=== PATIENT | female | born 1935 | race Caucasian/White ===

== ENCOUNTER 2022-04-09 09:39 | Inpatient (IN) | payer MEDICARE, SELFPAY ==
[2022-04-09] VITALS (11 sets, daily range): BP systolic 114–207; BP diastolic 51–96; PULSE 75–115; RESP 14–20; TEMP 34–37.9; O2SAT 85–100; BMI 27.4
--- NOTE | 2022-04-09 | ECG_ITS ---
Test Reason : elevated trop Blood Pressure : / mmHG Vent. Rate : 090 BPM Atrial Rate : 090 BPM P-R Int : 178 ms QRS Dur : 076 ms QT Int : 376 ms P-R-T Axes : 078 022 015 degrees QTc Int : 459 ms Sinus rhythm with marked sinus arrhythmia with occasional Premature ventricular complexes Nonspecific ST abnormality Abnormal ECG When compared with ECG of 09-APR-2022 11:30, Premature ventricular complexes are now Present ST no longer elevated in Inferior leads Referred By: John Hussein Electronically Signed By:KOBE THURMAN MD
--- NOTE | ~2022-04-09 | XR_ITS ---
EXAMINATION: LEFT KNEE, LEFT ANKLE, BILATERAL KNEE, BILATERAL ANKLES BILATERAL FOOT. CLINICAL INFORMATION: Fall. Pain. COMPARISON: None TECHNIQUE: 2 views each knee. 2 views each ankle, 3 views each foot FINDINGS: Left knee: The tricompartment joint space is mildly reduced. There is chondrocalcinosis of the menisci no visible acute fracture, dislocation or loose body seen. There is diffuse osteopenia. No abnormal joint effusion. Left ankle: There is diffuse osteopenia. The ankle mortise and subtalar joints are normal. There is moderate medial malleolar osteophytosis. The soft tissues are normal. Left foot: There is diffuse osteopenia with no visible acute fracture, dislocation or subluxation seen. No bony erosive changes. The ankle mortise and subtalar joints are normal. The soft tissues are normal. Right knee: The tricompartment joint space is reduced. No acute fracture, dislocation or loose body seen. There is chondrocalcinosis of medial and lateral meniscus. No abnormal joint effusion seen. There is moderate size superior patellar enthesophyte. Right ankle: There is mild osteopenia no visible acute fracture, dislocation or subluxation seen. The ankle mortise and subtalar joints are normal. A small calcaneal heel enthesophyte. Soft tissues are normal. Right foot: There is no visible acute fracture, dislocation or subluxation seen. The soft tissues are normal. There is a small calcaneal heel spur. XR/XR ankle RT min 3V IMPRESSION: Diffuse osteopenia in both lower extremities. There is no visible fracture involving either knee, ankle of the foot. 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 There is mild superior patellar spurring right knee. Mild degenerative changes both knee joints. Diffuse osteopenia bilateral foot and ankle. No visible acute fracture or dislocation or soft tissue swelling in either foot or ankle. Calcaneal heel enthesophyte bilateral foot.
--- NOTE | ~2022-04-09 | XR_ITS ---
EXAMINATION: XR CHEST CLINICAL INFORMATION: Wheezing and rhonchi COMPARISON: Chest CT March 2022 TECHNIQUE: Frontal view of the chest was obtained. FINDINGS: The cardiac and mediastinal contours are stable. The lungs are clear. There is no pleural effusion or pneumothorax. There are degenerative changes of the spine and shoulders. XR/XR chest 1V IMPRESSION: No evidence for acute disease in the chest.
--- NOTE | ~2022-04-09 | XR_ITS ---
EXAMINATION: LEFT KNEE, LEFT ANKLE, BILATERAL KNEE, BILATERAL ANKLES BILATERAL FOOT. CLINICAL INFORMATION: Fall. Pain. COMPARISON: None TECHNIQUE: 2 views each knee. 2 views each ankle, 3 views each foot FINDINGS: Left knee: The tricompartment joint space is mildly reduced. There is chondrocalcinosis of the menisci no visible acute fracture, dislocation or loose body seen. There is diffuse osteopenia. No abnormal joint effusion. Left ankle: There is diffuse osteopenia. The ankle mortise and subtalar joints are normal. There is moderate medial malleolar osteophytosis. The soft tissues are normal. Left foot: There is diffuse osteopenia with no visible acute fracture, dislocation or subluxation seen. No bony erosive changes. The ankle mortise and subtalar joints are normal. The soft tissues are normal. Right knee: The tricompartment joint space is reduced. No acute fracture, dislocation or loose body seen. There is chondrocalcinosis of medial and lateral meniscus. No abnormal joint effusion seen. There is moderate size superior patellar enthesophyte. Right ankle: There is mild osteopenia no visible acute fracture, dislocation or subluxation seen. The ankle mortise and subtalar joints are normal. A small calcaneal heel enthesophyte. Soft tissues are normal. Right foot: There is no visible acute fracture, dislocation or subluxation seen. The soft tissues are normal. There is a small calcaneal heel spur. XR/XR knee LT 2V IMPRESSION: Diffuse osteopenia in both lower extremities. There is no visible fracture involving either knee, ankle of the foot. 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 There is mild superior patellar spurring right knee. Mild degenerative changes both knee joints. Diffuse osteopenia bilateral foot and ankle. No visible acute fracture or dislocation or soft tissue swelling in either foot or ankle. Calcaneal heel enthesophyte bilateral foot.
--- NOTE | ~2022-04-09 | CT_ITS ---
EXAMINATION: CT ABDOMEN AND PELVIS WITHOUT CONTRAST CLINICAL INFORMATION: Trauma. Abdominal pain. COMPARISON: None TECHNIQUE: Multidetector volumetric imaging was performed from the superior aspect of the liver through the pubic symphysis. Sagittal and coronal reformatted images were obtained on the technologist's workstation. This CT examination was performed using dose optimization techniques as appropriate, variously including the following: *Automated exposure control *Adjustment of mA and/or kV according to patient size (this includes techniques or standardized protocols for targeted exams where dose is matched to indication/reason for exam; i.e. extremities or head) *Use of iterative reconstruction technique DLP: 689 mGy-cm FINDINGS: LUNG BASES: The visualized lung bases are unremarkable. LIVER, GALLBLADDER, AND BILIARY TREE: The liver is normal in size, shape, and attenuation. No focal hepatic lesion or biliary ductal dilatation is present. The gallbladder is unremarkable with no evidence of radiopaque gallstones, gallbladder wall thickening, or obvious pericholecystic inflammatory changes. PANCREAS: Unremarkable. SPLEEN: Unremarkable. ADRENAL GLANDS: Unremarkable. KIDNEYS AND URETERS: The kidneys are normal in size, shape, and attenuation. No hydronephrosis, hydroureter, or calculi seen. No perinephric stranding. BLADDER: Unremarkable. GASTROINTESTINAL TRACT: Diverticulosis of the colon and constipation. The small and large bowel are otherwise unremarkable. The appendix is unremarkable. No ascites or free air. ABDOMINAL WALL: No significant hernia is appreciated. LYMPH NODES: Normal. VASCULAR: Unremarkable. PELVIC VISCERA: Unremarkable. OSSEOUS STRUCTURES: Mild L5 vertebral body compression fracture, question recent. Postsurgical changes to the lower lumbar spine post laminectomy. Mild Degenerative changes spine. Degenerative changes at the hip joints. CT/CT abdomen pelvis wo IV con IMPRESSION: Moderate L5 vertebral body compression fracture, question recent. Clinical correlation recommended. Postsurgical changes to the lower lumbar spine. No acute abdominal or pelvic findings. Constipation and diverticulosis. Fleischner guidelines were followed.
--- NOTE | ~2022-04-09 | CT_ITS ---
EXAMINATION: CT BRAIN AND CT CERVICAL SPINE WITHOUT CONTRAST. CLINICAL INFORMATION: Trauma. Pain. COMPARISON: None TECHNIQUE: 5 mm thin axial and reformatted 2 mm thin sagittal and coronal images of brain were obtained. Subsequently axial 3 mm thin and reformatted 2 mm thin sagittal coronal images of cervical spine were obtained. DLP 1044 mGy FINDINGS: Brain: There is no acute intra-axial, extra-axial bleed, masses or midline shift. No acute infarction evolution, edema or mass effect. There is diffuse periventricular hypodensity in both several hemispheres. The lateral ventricles are moderately enlarged but symmetrical. The parrish to white matter differentiation maintained. Bone windows reveal no calvarial abnormality. There is no scalp soft tissue abnormality. Bilateral paranasal sinuses are well-aerated. Cervical spine: There is mild straightening of cervical lordosis. There is loss of C3-C4, C4-C5, C5-C6 and C6-C7 disc heights with moderate ventral and posterior spondylosis. The craniovertebral junction and C1-C2 alignment is normal. There is mild bilateral C3-C4, C4-C5, C5-C6 facet joint arthropathy and hypertrophy. There is no visible acute fracture, dislocation or lytic process seen. The paravertebral soft tissues are the airway is widely patent. The lung apices are clear. CT/CT cervical spine wo IV con IMPRESSION: No acute intracranial process seen. There is no visible acute fracture, dislocation or subluxation in cervical spine. Degenerative disc changes, spondylosis and facet joint arthropathy as described above. No lytic or sclerotic process seen.
--- NOTE | ~2022-04-09 | CT_ITS ---
EXAMINATION: CT CHEST WITHOUT CONTRAST CLINICAL INFORMATION: Trauma COMPARISON: None TECHNIQUE: Multidetector volumetric CT imaging of the chest was done. Axial MIP volume rendering provided. Sagittal and coronal reformatted images were obtained. This CT examination was performed using dose optimization techniques as appropriate, variously including the following: *Automated exposure control *Adjustment of mA and/or kV according to patient size (this includes techniques or standardized protocols for targeted exams where dose is matched to indication/reason for exam; i.e. extremities or head) *Use of iterative reconstruction technique DLP: 340 mGy-cm FINDINGS: MAINTENANCE MECHANIC 2ND SHIFT: Unremarkable LUNGS: The lungs are clear with no evidence of inflammation or nodules. MEDIASTINUM: The mediastinum is normal. CORONARY ARTERY CALCIFICATION: Mild PLEURA: There is no pleural effusion. No pleural mass or thickening. AXILLA: No lymphadenopathy. UPPER ABDOMEN: Unremarkable. OSSEOUS STRUCTURES: Degenerative changes of the spine and shoulders. CT/CT chest wo IV con IMPRESSION: No evidence for acute disease in the chest. Fleischner guidelines were followed.
--- NOTE | ~2022-04-09 | CT_ITS ---
EXAMINATION: CT BRAIN AND CT CERVICAL SPINE WITHOUT CONTRAST. CLINICAL INFORMATION: Trauma. Pain. COMPARISON: None TECHNIQUE: 5 mm thin axial and reformatted 2 mm thin sagittal and coronal images of brain were obtained. Subsequently axial 3 mm thin and reformatted 2 mm thin sagittal coronal images of cervical spine were obtained. DLP 1044 mGy FINDINGS: Brain: There is no acute intra-axial, extra-axial bleed, masses or midline shift. No acute infarction evolution, edema or mass effect. There is diffuse periventricular hypodensity in both several hemispheres. The lateral ventricles are moderately enlarged but symmetrical. The parrish to white matter differentiation maintained. Bone windows reveal no calvarial abnormality. There is no scalp soft tissue abnormality. Bilateral paranasal sinuses are well-aerated. Cervical spine: There is mild straightening of cervical lordosis. There is loss of C3-C4, C4-C5, C5-C6 and C6-C7 disc heights with moderate ventral and posterior spondylosis. The craniovertebral junction and C1-C2 alignment is normal. There is mild bilateral C3-C4, C4-C5, C5-C6 facet joint arthropathy and hypertrophy. There is no visible acute fracture, dislocation or lytic process seen. The paravertebral soft tissues are the airway is widely patent. The lung apices are clear. CT/CT head/brain wo IV con IMPRESSION: No acute intracranial process seen. There is no visible acute fracture, dislocation or subluxation in cervical spine. Degenerative disc changes, spondylosis and facet joint arthropathy as described above. No lytic or sclerotic process seen.
--- NOTE | 2022-04-09 10:52 | ECG_ITS ---
Test Reason : HYPOTHERMIA Blood Pressure : / mmHG Vent. Rate : 108 BPM Atrial Rate : 108 BPM P-R Int : 180 ms QRS Dur : 070 ms QT Int : 356 ms P-R-T Axes : 084 029 045 degrees QTc Int : 477 ms Poor data quality Sinus tachycardia with occasional Premature ventricular complexes Nonspecific ST and T wave abnormality Abnormal ECG No previous ECGs available Referred By: Ginny Lance Electronically Signed By:KOBE THURMAN MD
--- NOTE | 2022-04-09 10:56 | PC.NURSE ---
pt alert and oriented, skin very cold to the touch, pt's lower extremities with new abrasions all over her knees, shines and feet, rectal temp at 93.8F, tachy at 111, bp holding at 114/80 and sating at 100% on room air. c-gerson per ems pt states that she was taking her dog outside at 0300 and the dog got wrapped up in a chain and the pt was attempting to get the dog untangled all morning, pt reports almost falling but eased her self to the ground did not fall according to the pt but did spend about 4 hours outside attempting to crawl back in the house pt reports having pain in her legs / pt is currently on a bear hugger
[2022-04-09 11:21] LABS: Glucose, Whole Blood 405 mg/dL (60-115)
--- NOTE | 2022-04-09 11:26 | ECG_ITS ---
Test Reason : HYPOTHERMIA Blood Pressure : / mmHG Vent. Rate : 110 BPM Atrial Rate : 110 BPM P-R Int : 180 ms QRS Dur : 074 ms QT Int : 356 ms P-R-T Axes : 038 038 038 degrees QTc Int : 481 ms Poor data quality Sinus tachycardia Nonspecific ST and T wave abnormality Abnormal ECG When compared with ECG of 09-APR-2022 11:06, Premature ventricular complexes are no longer Present Referred By: Ginny Lance Electronically Signed By:KOBE THURMAN MD
--- NOTE | 2022-04-09 11:29 | ED_ITS ---
HPI - Fall General Chief Complaint: Fall Stated Complaint: FALL,LOW TEMP Time Seen by Provider: 04/09/22 10:48 History of Present Illness HPI Narrative: Patient is an 86-year-old female was trying to let the dog out at 03:00 o'clock in the morning. Patient and down somehow felt weak on her feet. Next thing she knew she was on the ground. Unable to get up patient was out in the cold. Drag herself to a phone and called EMS the ventrally. Patient was then sent in for further evaluation. She is not on any blood thinners. Complain of generalized malaise. Patient was noted by EMS to be incontinent of stool. Denies any chest pain. Denies any abdominal pain. Denies any bloody stool. Denies any changes in medication. Related Data Home Medications Medication Instructions Recorded Confirmed cholecalciferol (vitamin D3) 10 10 mcg PO DAILY 04/09/22 04/09/22 mcg (400 unit) capsule dulaglutide 0.75 mg/0.5 mL 0.75 mg subcut TU@1000 04/09/22 04/09/22 subcutaneous pen injector (Trulicity) lisinopril 40 mg tablet 40 mg PO DAILY 04/09/22 04/09/22 metoprolol succinate 50 mg 50 mg PO DAILY 04/09/22 04/09/22 tablet,extended release 24 hr Allergies Allergy/AdvReac Type Severity Reaction Status Date / Time atorvastatin [From Lipitor] AdvReac Joint Pain Verified 04/09/22 10:02 Review of Systems Review of Systems: Positive generalized malaise weakness Positive feeling cold Yes Unobtainable due to mental condition PMFSH Past Medical History Attestation statement: The following information was validated with the patient. Social History Social History Smoked in Last 30 Days: No Use of substances other than those prescribed or required for medical reasons: No Advance Directives: No Physical Exam Vital Signs: Vital Signs: Last Vital Signs Temp 95.5 F L 04/09/22 15:53 Pulse 113 H 04/09/22 15:53 Resp 16 04/09/22 15:53 BP 165/96 H 04/09/22 15:53 Pulse Ox 98 04/09/22 15:53 O2 Del Method 04/09/22 15:53 O2 Flow Rate 2 04/09/22 15:53 BMI result Body Mass Index 27.4 Sick appearing, weak, collared Appearance: Alert. Oriented X3. Dry mucous membrane Eyes: Pupils equal, round and reactive to light. ENT: Pharynx normal. Neck: Trachea is midline C-spine is immobilized secondary to distracting injury CVS: Tachycardic but regular Respiratory: No gross chest wall tenderness elicited on palpation. No crepitus. No clavicular tenderness. Positive breath sounds bilaterally Abdomen: Soft nontender Skin: Cold, multiple abrasions noted contusion noted over bilateral knee, ankle, foot. Distal pulses grossly intact. Toes are extremely cold at this point in time. Cannot check capillary refill. Extremities: No lower extremity edema. Neuro: Oriented X 3. No motor deficit. No sensory deficit. Moving all extermities. No slurred speech Medications Administered Discontinued Medications Generic Name Dose Route Start Last Admin Trade Name Freq PRN Reason Stop Dose Admin Dexamethasone Sodium Phosphate 10 mg 04/09/22 11:38 04/09/22 12:15 Dexamethasone Sod Phosphate 10 Mg/Ml Vial IVPUSH 04/09/22 11:39 10 mg ONCE ONE Administration Diphtheria/Tetanus/Acell Pertussis 0.5 ml 04/09/22 11:25 04/09/22 12:17 Diphth,Pertus(Acell),Tet Adult 0.5 Ml Syringe IM 04/09/22 11:26 0.5 ml .ONCE ONE Administration Sodium Chloride 1,000 mls @ 999 mls/hr 04/09/22 11:30 04/09/22 13:17 Ns IV 04/09/22 12:30 Infused .Q1H1M TARIQ Infusion Ceftriaxone Sodium 1 gm/ 50 mls @ 100 mls/hr 04/09/22 11:40 04/09/22 13:16 Sodium Chloride IV 04/09/22 12:09 Infused ONCE ONE Infusion Sodium Chloride 2,041.17 mls @ 2,041.17 mls/hr 04/09/22 11:53 04/09/22 15:11 Ns 30 ml/kg infuse over 1 hr (2041.17 ml) 04/09/22 12:52 Infused IV Infusion .Q1H STA MDM - Fall MDM Narrative Medical decision making narrative: Patient had temp of 93 degrees interestingly patient is not having any shivering. Cultures are obtained. Sepsis workup being done. Will check thyroid. Will go ahead and give patient a dose of Decadron. Will do a CT scan of the head C-spine chest abdomen pelvis to rule out any pathology. CPK ordered for rhabdo as patient was on the ground for 3 hours. A L of IV fluid ordered is patient grossly appear dehydrated. Sugar was over 100 no evidence for hypoglycemia. Patient's TSH was normal. There is no evidence for hypothyroidism. Given a dose of Decadron for potential [place]. Flu RSV COVID positive for RSV. Question cause of patient's feeling sick. IV fluids given. Will admit for further evaluation. Temperature is now back up to 95.5. Medical Records Attestation: I reviewed the patient's medical records. Lab Data Attestation: I reviewed the patient's lab results. Result diagrams: 04/09/22 11:26 04/09/22 11:26 Labs: Lab Results 04/09/22 04/09/22 04/09/22 Range/Units 10:57 11:25 11:26 WBC 22.0 H (4.8-10.8) X10*3/uL RBC 3.66 L (4.20-5.50) X10*6/uL Hgb 10.9 L (12.0-16.0) g/dl Hct 34.5 L (37.0-47.0) % MCV 94.3 (80.0-98.0) fL MCH 29.8 (27.0-33.0) pg MCHC 31.6 (31.0-35.0) g/dl RDW 13.1 (11.0-16.0) % Plt Count 294 (160-400) X10*3/uL MPV 10.3 (9.4-12.3) fL Immature Gran % (Auto) Cancelled Neut % (Auto) Cancelled Lymph % (Auto) Cancelled [place] % (Auto) Cancelled Eos % (Auto) Cancelled Baso % (Auto) Cancelled Lymph # (Auto) Cancelled [place] # (Auto) Cancelled Eos # (Auto) Cancelled Baso # (Auto) Cancelled Abs Immat Gran (auto) Cancelled Absolute Neuts (auto) Cancelled Absolute Nucleated RBC 0.000 (0.0-0.012) X10*3/uL Nucleated RBC % (auto) 0.0 (0.0-0.2) /100WBC Neutrophils % (Manual) 85 H (45-73) % Band Neutrophils % 10 H (3-5) % Lymphocytes % (Manual) 3 L (20-40) % Monocytes % (Manual) 2 (2-11) % Abs Neuts (Manual) 20.9 H (2.0-8.3) X10*3/uL Lymphocytes # (Manual) 0.7 L (1.2-4.9) X10*3/uL Monocytes # (Manual) 0.4 (0.1-1.2) X10*3/uL Platelet Estimate NORMAL (NORMAL) Plt Morphology Comment NORMAL RBC Morphology NOTED Hypochromasia 1+ (5-14) /OIF O2 Saturation % ABG pH at Pt Temp (7.35-7.45) ABG pCO2 at Pt Temp (32-45) mmHg ABG pO2 at Pt Temp (83-108) mmHg ABG HCO3 (22-26) mmol/L ABG Base Excess (Actual) mmol/L Sodium (135-145) mmol/L Potassium (3.3-5.1) mmol/L Chloride (96-108) mmol/L Carbon Dioxide (22-29) mmol/L Anion Gap (12-20) BUN (9-16) mg/dL Creatinine (0.5-1.4) mg/dL Estim Creat Clear Calc Estimated GFR POC Glucose 405 H* (60-115) mg/dL Random Glucose (60-115) mg/dL Lactic Acid 6.2 H* (0.5-2.0) mmol/L Lactic Acid F/U @ 2Hr (0.5-2.0) mmol/L Calcium (8.4-10.2) mg/dL Total Bilirubin (0.0-1.0) mg/dL Direct Bilirubin (0.0-0.5) mg/dL AST (5-31) U/L ALT (0-31) U/L Alkaline Phosphatase (39-117) U/L Total Creatine Kinase (26-140) U/L Troponin I High Sens (<3.5-17.0) ng/L Total Protein (6.5-8.0) g/dL Albumin (3.5-5.0) g/dL Lipase (8-78) U/L TSH (0.32-4.0) uIU/mL Urine Color Urine Appearance Urine pH (5.0-9.0) Ur Specific [place] (1.005-1.025) Urine Protein (Neg-Trace) mg/dL Urine Glucose (UA) (Negative) mg/dL Urine Ketones (Negative) mg/dL Urine Blood (Negative) Urine Nitrite (Negative) Ur Leukocyte Esterase (Negative) Urine RBC (0-2) /HPF Urine WBC (0-5) /HPF Ur Squamous Epith Cells (0-2) /HPF Urine Bacteria (None Seen) Hyaline Casts (0-2) /LPF Urine Opiates Screen (Not Detect) Urine Fentanyl Screen (Not Detect) Ur Barbiturates Screen (Not Detect) Ur Phencyclidine Scrn (Not Detect) Ur Amphetamines Screen (Not Detect) U Benzodiazepines Scrn (Not Detect) Urine Cocaine Screen (Not Detect) U Marijuana (THC) Screen (Not Detect) Influenza Type A (PCR) (Negative) Influenza Type B (PCR) (Negative) RSV RNA Qual (PCR) (Negative) SARS-CoV-2 RNA (RT-PCR) (Negative) 04/09/22 04/09/22 04/09/22 Range/Units 11:26 11:26 12:16 WBC (4.8-10.8) X10*3/uL RBC (4.20-5.50) X10*6/uL Hgb (12.0-16.0) g/dl Hct (37.0-47.0) % MCV (80.0-98.0) fL MCH (27.0-33.0) pg MCHC (31.0-35.0) g/dl RDW (11.0-16.0) % Plt Count (160-400) X10*3/uL MPV (9.4-12.3) fL Immature Gran % (Auto) Neut % (Auto) Lymph % (Auto) [place] % (Auto) Eos % (Auto) Baso % (Auto) Lymph # (Auto) [place] # (Auto) Eos # (Auto) Baso # (Auto) Abs Immat Gran (auto) Absolute Neuts (auto) Absolute Nucleated RBC (0.0-0.012) X10*3/uL Nucleated RBC % (auto) (0.0-0.2) /100WBC Neutrophils % (Manual) (45-73) % Band Neutrophils % (3-5) % Lymphocytes % (Manual) (20-40) % Monocytes % (Manual) (2-11) % Abs Neuts (Manual) (2.0-8.3) X10*3/uL Lymphocytes # (Manual) (1.2-4.9) X10*3/uL Monocytes # (Manual) (0.1-1.2) X10*3/uL Platelet Estimate (NORMAL) Plt Morphology Comment RBC Morphology Hypochromasia /OIF O2 Saturation % ABG pH at Pt Temp (7.35-7.45) ABG pCO2 at Pt Temp (32-45) mmHg ABG pO2 at Pt Temp (83-108) mmHg ABG HCO3 (22-26) mmol/L ABG Base Excess (Actual) mmol/L Sodium 138 (135-145) mmol/L Potassium 5.4 H (3.3-5.1) mmol/L Chloride 101 (96-108) mmol/L Carbon Dioxide 21 L (22-29) mmol/L Anion Gap 21 H (12-20) BUN 38 H (9-16) mg/dL Creatinine 1.39 (0.5-1.4) mg/dL Estim Creat Clear Calc 27.2 Estimated GFR 36 POC Glucose (60-115) mg/dL Random Glucose 461 H* (60-115) mg/dL Lactic Acid (0.5-2.0) mmol/L Lactic Acid F/U @ 2Hr (0.5-2.0) mmol/L Calcium 9.0 (8.4-10.2) mg/dL Total Bilirubin 0.7 (0.0-1.0) mg/dL Direct Bilirubin 0.4 (0.0-0.5) mg/dL AST 32 H (5-31) U/L ALT 20 (0-31) U/L Alkaline Phosphatase 70 (39-117) U/L Total Creatine Kinase 623 H (26-140) U/L Troponin I High Sens 463.7 H* (<3.5-17.0) ng/L Total Protein 6.2 L (6.5-8.0) g/dL Albumin 3.7 (3.5-5.0) g/dL Lipase 21 (8-78) U/L TSH 1.61 (0.32-4.0) uIU/mL Urine Color Yellow Urine Appearance Clear Urine pH 5.5 (5.0-9.0) Ur Specific [place] 1.025 (1.005-1.025) Urine Protein Trace (Neg-Trace) mg/dL Urine Glucose (UA) 500 H (Negative) mg/dL Urine Ketones Trace (Negative) mg/dL Urine Blood Small (1+) H (Negative) Urine Nitrite Negative (Negative) Ur Leukocyte Esterase Negative (Negative) Urine RBC 3-5 H (0-2) /HPF Urine WBC 0-5 (0-5) /HPF Ur Squamous Epith Cells 0-2 (0-2) /HPF Urine Bacteria Trace (None Seen) Hyaline Casts 0-2 (0-2) /LPF Urine Opiates Screen (Not Detect) Urine Fentanyl Screen (Not Detect) Ur Barbiturates Screen (Not Detect) Ur Phencyclidine Scrn (Not Detect) Ur Amphetamines Screen (Not Detect) U Benzodiazepines Scrn (Not Detect) Urine Cocaine Screen (Not Detect) U Marijuana (THC) Screen (Not Detect) Influenza Type A (PCR) (Negative) Influenza Type B (PCR) (Negative) RSV RNA Qual (PCR) (Negative) SARS-CoV-2 RNA (RT-PCR) (Negative) 04/09/22 04/09/22 04/09/22 Range/Units 12:16 12:17 13:44 WBC (4.8-10.8) X10*3/uL RBC (4.20-5.50) X10*6/uL Hgb (12.0-16.0) g/dl Hct (37.0-47.0) % MCV (80.0-98.0) fL MCH (27.0-33.0) pg MCHC (31.0-35.0) g/dl RDW (11.0-16.0) % Plt Count (160-400) X10*3/uL MPV (9.4-12.3) fL Immature Gran % (Auto) Neut % (Auto) Lymph % (Auto) [place] % (Auto) Eos % (Auto) Baso % (Auto) Lymph # (Auto) [place] # (Auto) Eos # (Auto) Baso # (Auto) Abs Immat Gran (auto) Absolute Neuts (auto) Absolute Nucleated RBC (0.0-0.012) X10*3/uL Nucleated RBC % (auto) (0.0-0.2) /100WBC Neutrophils % (Manual) (45-73) % Band Neutrophils % (3-5) % Lymphocytes % (Manual) (20-40) % Monocytes % (Manual) (2-11) % Abs Neuts (Manual) (2.0-8.3) X10*3/uL Lymphocytes # (Manual) (1.2-4.9) X10*3/uL Monocytes # (Manual) (0.1-1.2) X10*3/uL Platelet Estimate (NORMAL) Plt Morphology Comment RBC Morphology Hypochromasia /OIF O2 Saturation 98.0 % ABG pH at Pt Temp 7.37 (7.35-7.45) ABG pCO2 at Pt Temp 28 L (32-45) mmHg ABG pO2 at Pt Temp 94 (83-108) mmHg ABG HCO3 16 L (22-26) mmol/L ABG Base Excess (Actual) -7.1 mmol/L Sodium (135-145) mmol/L Potassium (3.3-5.1) mmol/L Chloride (96-108) mmol/L Carbon Dioxide (22-29) mmol/L Anion Gap (12-20) BUN (9-16) mg/dL Creatinine (0.5-1.4) mg/dL Estim Creat Clear Calc Estimated GFR POC Glucose (60-115) mg/dL Random Glucose (60-115) mg/dL Lactic Acid (0.5-2.0) mmol/L Lactic Acid F/U @ 2Hr 2.4 H* (0.5-2.0) mmol/L Calcium (8.4-10.2) mg/dL Total Bilirubin (0.0-1.0) mg/dL Direct Bilirubin (0.0-0.5) mg/dL AST (5-31) U/L ALT (0-31) U/L Alkaline Phosphatase (39-117) U/L Total Creatine Kinase (26-140) U/L Troponin I High Sens (<3.5-17.0) ng/L Total Protein (6.5-8.0) g/dL Albumin (3.5-5.0) g/dL Lipase (8-78) U/L TSH (0.32-4.0) uIU/mL Urine Color Urine Appearance Urine pH (5.0-9.0) Ur Specific [place] (1.005-1.025) Urine Protein (Neg-Trace) mg/dL Urine Glucose (UA) (Negative) mg/dL Urine Ketones (Negative) mg/dL Urine Blood (Negative) Urine Nitrite (Negative) Ur Leukocyte Esterase (Negative) Urine RBC (0-2) /HPF Urine WBC (0-5) /HPF Ur Squamous Epith Cells (0-2) /HPF Urine Bacteria (None Seen) Hyaline Casts (0-2) /LPF Urine Opiates Screen Not Detected (Not Detect) Urine Fentanyl Screen Not Detected (Not Detect) Ur Barbiturates Screen Not Detected (Not Detect) Ur Phencyclidine Scrn Not Detected (Not Detect) Ur Amphetamines Screen Not Detected (Not Detect) U Benzodiazepines Scrn Not Detected (Not Detect) Urine Cocaine Screen Not Detected (Not Detect) U Marijuana (THC) Screen Not Detected (Not Detect) Influenza Type A (PCR) (Negative) Influenza Type B (PCR) (Negative) RSV RNA Qual (PCR) (Negative) SARS-CoV-2 RNA (RT-PCR) (Negative) 04/09/22 Range/Units 14:50 WBC (4.8-10.8) X10*3/uL RBC (4.20-5.50) X10*6/uL Hgb (12.0-16.0) g/dl Hct (37.0-47.0) % MCV (80.0-98.0) fL MCH (27.0-33.0) pg MCHC (31.0-35.0) g/dl RDW (11.0-16.0) % Plt Count (160-400) X10*3/uL MPV (9.4-12.3) fL Immature Gran % (Auto) Neut % (Auto) Lymph % (Auto) [place] % (Auto) Eos % (Auto) Baso % (Auto) Lymph # (Auto) [place] # (Auto) Eos # (Auto) Baso # (Auto) Abs Immat Gran (auto) Absolute Neuts (auto) Absolute Nucleated RBC (0.0-0.012) X10*3/uL Nucleated RBC % (auto) (0.0-0.2) /100WBC Neutrophils % (Manual) (45-73) % Band Neutrophils % (3-5) % Lymphocytes % (Manual) (20-40) % Monocytes % (Manual) (2-11) % Abs Neuts (Manual) (2.0-8.3) X10*3/uL Lymphocytes # (Manual) (1.2-4.9) X10*3/uL Monocytes # (Manual) (0.1-1.2) X10*3/uL Platelet Estimate (NORMAL) Plt Morphology Comment RBC Morphology Hypochromasia /OIF O2 Saturation % ABG pH at Pt Temp (7.35-7.45) ABG pCO2 at Pt Temp (32-45) mmHg ABG pO2 at Pt Temp (83-108) mmHg ABG HCO3 (22-26) mmol/L ABG Base Excess (Actual) mmol/L Sodium (135-145) mmol/L Potassium (3.3-5.1) mmol/L Chloride (96-108) mmol/L Carbon Dioxide (22-29) mmol/L Anion Gap (12-20) BUN (9-16) mg/dL Creatinine (0.5-1.4) mg/dL Estim Creat Clear Calc Estimated GFR POC Glucose (60-115) mg/dL Random Glucose (60-115) mg/dL Lactic Acid (0.5-2.0) mmol/L Lactic Acid F/U @ 2Hr (0.5-2.0) mmol/L Calcium (8.4-10.2) mg/dL Total Bilirubin (0.0-1.0) mg/dL Direct Bilirubin (0.0-0.5) mg/dL AST (5-31) U/L ALT (0-31) U/L Alkaline Phosphatase (39-117) U/L Total Creatine Kinase (26-140) U/L Troponin I High Sens (<3.5-17.0) ng/L Total Protein (6.5-8.0) g/dL Albumin (3.5-5.0) g/dL Lipase (8-78) U/L TSH (0.32-4.0) uIU/mL Urine Color Urine Appearance Urine pH (5.0-9.0) Ur Specific [place] (1.005-1.025) Urine Protein (Neg-Trace) mg/dL Urine Glucose (UA) (Negative) mg/dL Urine Ketones (Negative) mg/dL Urine Blood (Negative) Urine Nitrite (Negative) Ur Leukocyte Esterase (Negative) Urine RBC (0-2) /HPF Urine WBC (0-5) /HPF Ur Squamous Epith Cells (0-2) /HPF Urine Bacteria (None Seen) Hyaline Casts (0-2) /LPF Urine Opiates Screen (Not Detect) Urine Fentanyl Screen (Not Detect) Ur Barbiturates Screen (Not Detect) Ur Phencyclidine Scrn (Not Detect) Ur Amphetamines Screen (Not Detect) U Benzodiazepines Scrn (Not Detect) Urine Cocaine Screen (Not Detect) U Marijuana (THC) Screen (Not Detect) Influenza Type A (PCR) NEGATIVE (Negative) Influenza Type B (PCR) NEGATIVE (Negative) RSV RNA Qual (PCR) POSITIVE A (Negative) SARS-CoV-2 RNA (RT-PCR) NEGATIVE (Negative) Critical Care Time Critical Care Time Critical Care Time: Yes Total Critical Care Time: 40 Attestation: I have personally provided 40 minutes of critical care time exclusive of time spent on separately billable procedures. Time includes review of lab data, radiology results, discussion with consultants, and monitoring for potential decompensation. Interventions were performed as documented above Discharge Plan Discharge Clinical Impression: Hypothermia, Respiratory syncytial virus (RSV) Patient Disposition: Admitted As Inpatient Prescriptions: No Action Trulicity 0.75 mg/0.5 mL Pen Injector 0.75 mg SUBCUT TU@1000 metoprolol succinate 50 mg Tablet Extended Release 24 Hr 50 mg PO DAILY lisinopril 40 mg Tablet 40 mg PO DAILY cholecalciferol (vitamin D3) 10 mcg (400 unit) Capsule 10 mcg PO DAILY
[2022-04-09 11:35] LABS: Hematocrit 34.5 % (37.0-47.0); Hemoglobin 10.9 g/dl (12.0-16.0); Mean Corpuscular HGB Conc 31.6 g/dl (31.0-35.0); Mean Corpuscular Hemoglobin 29.8 pg (27.0-33.0); Mean Platelet Volume 10.3 fL (9.4-12.3); Platelet Count 294 X10*3/uL (160-400); Red Blood Count 3.66 X10*6/uL (4.20-5.50); Red Cell Distribution Width 13.1 % (11.0-16.0)
[2022-04-09 11:36] LABS: Mean Corpuscular Volume 94.3 fL (80.0-98.0)
--- OUTSIDE RECORDS SUMMARY | 2022-04-09 11:50 | XMS_ITS | Continuity of Care Document ---
:1935 Author Organization [facility] Address [address] [place] [id number]- Care Team Providers Name Role Phone Khanh Diaz MD Primary Care Physician [place] [facility] [place]): 06/08/19 - 06/15/[address] [address]- [facility] Attending Physician: Khanh Diaz MD Allergies, Adverse Reactions, Alerts Substance Reaction Severity Status codeine loopy Active Lipitor weakness Severe Active SEVERE MUSCLE WEAKNESS Immunizations Given and Recorded Vaccine Date Status Refusal Reason influenza virus vaccine, inactivated 03/19/07 Given Influenza Virus Vaccine (oldterm)1 02/27/06 Given 1Admin Note: VIS GIVEN AND EXPLAINED Medications Avapro 300 mg oral tablet 1 tablet = 300 mg, By Mouth, Daily, # 30 tablet, 11 Refills, 05/03/14 14:05:18, 1 tablet By Mouth Daily,x30 days Start Date: 05/03/14 Stop Date: 04/28/15 Status: OrderedBenadryl 25 mg oral capsule 1 capsule = 25 mg, By Mouth, 3 times a day, PRN for allergy symptoms, # 30 capsule, 0 Refills, Maintenance, 03/01/18 9:16:52 EDT, Capsule Start Date: 03/01/18 Status: Ordereddiltiazem 240 mg/24 hours oral capsule, extended release 240 mg, By Mouth, Daily, Refills 0, Maintenance, 12/09/16 16:18:01 Start Date: 12/09/16 Status: OrderedGlucose Test Strips See Instructions, 100, 0, 0, 0, 06/05/07 15:23:31, one touch ultra strips for testing 4-6 times a day, Stp/Shp,Blchrtwn,Rt9 Start Date: 06/05/07 Status: Orderedinsulin glargine 100 u/ml subcutaneous solution 0.1 mL = 10 units, Subcutaneous Injection, Daily at bedtime, 0 Refills, Maintenance, 12/09/16 16:18:04, Injection Start Date: 12/09/16 Status: Orderedinsulin lispro 100 u/ml subcutaneous injection 3-11 units, Subcutaneous Injection, 3 times a day before meals, PRN Blood Glucose, 0 Refills, Maintenance, 12/09/16 16:18:05, Injection Start Date: 12/09/16 Status: OrderedLantus Inj units, Subcutaneous Injection, 2 times a day, PRN if glucose >250, 0 Refills, Maintenance, 02/07/14 13:32:08, Injection Start Date: 02/07/14 Status: Orderedlosartan 100 mg oral tablet 1 tablet = 100 mg, By Mouth, Daily, Maintenance, 03/01/18 9:16:08 EDT Start Date: 03/01/18 Status: OrderedPrandin Tablet 3 mg, By Mouth, 3 times a day before meals, Maintenance, 10/28/11 11:20:01 Start Date: 10/28/11 Status: Orderedwarfarin 5 mg oral tablet 1 tablet = 5 mg, By Mouth, Daily, 0 Refills, Maintenance Start Date: 06/10/12 Status: OrderedZetia 10 mg oral tablet 1 tablet = 10 mg, By Mouth, Daily, 0 Refills, Maintenance Start Date: 06/10/12 Status: Ordered Problem List Condition Effective Dates Status Health Status Informant Atrial fibrillation Active paroxysmal(Confirmed) CTS (carpal tunnel Active syndrome)(Confirmed) Diabetes mellitus(Confirmed) Active High blood pressure(Confirmed) Active Hyperlipemia(Confirmed) Active Knee pain, right(Confirmed) Active Paget's disease of vulva(Confirmed) Active Permanent atrial Active fibrillation(Confirmed) Wrist pain, left(Confirmed) Active Social History Social History Type Response Smoking Status Never smoker entered on: 07/11/17 Sex
--- OUTSIDE RECORDS SUMMARY | 2022-04-09 11:50 | XMS_ITS | Continuity of Care Document ---
:1935 Author Organization [facility] [address], [address] [place] [address]- Care Team Providers Name Role Phone Khanh Diaz MD Primary Care Physician Encounter 03/17/20 - 03/24/20 [facility] [address], [address] [place] [address]- [facility] Attending Physician: Alessandro Mejia MD Admitting Physician: Alessandro Mejia MD Referring Physician: Alessandro Mejia MD Allergies, Adverse Reactions, Alerts Substance Reaction [...]
[2022-04-09 11:53] LABS: Lactic Acid 6.2 mmol/L (0.5-2.0)
[2022-04-09 12:01] LABS: Troponin-I High Sensitivity 463.7 ng/L (<3.5-17.0)
[2022-04-09 12:03] LABS: Neutrophils Percent Manual 85 % (45-73)
[2022-04-09 12:05] LABS: Band Neutrophils Percent 10 % (3-5); Lymphocytes Absolute Manual 0.7 X10*3/uL (1.2-4.9); Lymphocytes Percent Manual 3 % (20-40); Monocytes Absolute Manual 0.4 X10*3/uL (0.1-1.2); Monocytes Percent Manual 2 % (2-11); Neutrophils Absolute Manual 20.9 X10*3/uL (2.0-8.3)
[2022-04-09 12:06] LABS: Hypochromasia 1+ (5-14) /OIF; Platelet Estimate NORMAL (NORMAL); Platelet Morphology Comment NORMAL; RBC Morphology NOTED
[2022-04-09 12:11] LABS: Alanine Aminotransferase 20 U/L (0-31); Albumin Level 3.7 g/dL (3.5-5.0); Alkaline Phosphatase 70 U/L (39-117); Anion Gap 21 (12-20); Aspartate Amino Transferase 32 U/L (5-31); Bilirubin Direct 0.4 mg/dL (0.0-0.5); Bilirubin Total 0.7 mg/dL (0.0-1.0); Blood Urea Nitrogen 38 mg/dL (9-16); Carbon Dioxide 21 mmol/L (22-29); Chloride 101 mmol/L (96-108); Creatinine Clr Calc Pharmacy 27.2; Estimated Glomerular Filt Rate 36; Glucose Random 461 mg/dL (60-115); Potassium 5.4 mmol/L (3.3-5.1); Sodium 138 mmol/L (135-145); Total Protein 6.2 g/dL (6.5-8.0)
[2022-04-09] MEDS: dexAMETHasone sod phosphate 10 MG/ML VIAL IVPUSH (12:15)
[2022-04-09] MEDS: 0.9 % Sodium Chloride 1,000 ML 999 ML IV (12:15)
[2022-04-09] MEDS: Diphth,Pertus(ACell),Tet Adult 0.5 ML SYRINGE IM (12:17)
[2022-04-09] MEDS: cefTRIAXone sodium 1 GM in 0.9 % Sodium Chloride 50 ML IV (12:17)
[2022-04-09 12:24] LABS: ABG Base Excess -7.1 mmol/L; ABG HCO3 16 mmol/L (22-26); ABG pCO2 28 mmHg (32-45); ABG pH 7.37 (7.35-7.45); ABG pO2 94 mmHg (83-108)
[2022-04-09 12:24] LABS: ABG Refer to POC result
[2022-04-09 12:27] LABS: Appearance Urine Clear; Color Urine Yellow; Glucose Urine UA 500 mg/dL (Negative); Leukocyte Esterase Urine Negative (Negative); Nitrite Urine Negative (Negative); PH 5.5 (5.0-9.0); Specific Gravity - Urine 1.025 (1.005-1.025); UMIC TRIGGER UACC YES; Urine Blood Small (1+) (Negative); Urine Ketones Trace mg/dL (Negative); Urine Protein Trace mg/dL (Neg-Trace)
[2022-04-09 12:42] LABS: WBC Urine 0-5 /HPF (0-5)
[2022-04-09 12:43] LABS: Bacteria Urine Trace (None Seen); Hyaline Casts Urine 0-2 /LPF (0-2); Squamous Epithelial Cell Urine 0-2 /HPF (0-2)
[2022-04-09 12:45] LABS: Amphetamine Screen Urine Not Detected (Not Detect); Barbiturates, Urine Not Detected (Not Detect); Benzodiazepines Screen Urine Not Detected (Not Detect); Cannabinoid Screen Urine Not Detected (Not Detect); Cocaine Screen Urine Not Detected (Not Detect); Fentanyl, urine Not Detected (Not Detect); Opiate Screen Urine Not Detected (Not Detect); Phencyclidine Screen Urine Not Detected (Not Detect)
[2022-04-09 12:49] LABS: TSH reflex Free T4 1.61 uIU/mL (0.32-4.0)
[2022-04-09] MEDS: 0.9 % Sodium Chloride 2,041.17 ML 2041.17 ML IV (13:15)
[2022-04-09 13:27] LABS: Lipase 21 U/L (8-78)
[2022-04-09 13:29] LABS: Reflex Lactate? Lactic Acid Added
[2022-04-09 14:15] LABS: ~Lactic Acid-LAB USE ONLY 2.4 mmol/L (0.5-2.0)
[2022-04-09 15:32] LABS: Influenza A PCR NEGATIVE (Negative); Influenza B PCR NEGATIVE (Negative); Resp Syncy Virus RNA Qual PCR POSITIVE (Negative); SARS COV2 PCR INHOUSE NEGATIVE (Negative)
--- NOTE | 2022-04-09 15:35 | PHA.MEDREC ---
MED REC COMPLETE, NO ISSUES Pharmacy Consult ? Medication Reconciliation Pharmacy has completed the medication reconciliation.
[2022-04-09 15:48] LABS: Reflex Lactate? 2 Y
--- NOTE | 2022-04-09 16:42 | PC.NURSE ---
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
--- NOTE | 2022-04-09 16:59 | PM.IMHP ---
History of Present Illness Date of Service: 04/09/22 Attending physician on admission: Meliton Ramsay Chief Complaint: Fall, cold exposure 89-year-old female with history of [id number] type 2 diabetes, hypertension, paroxysmal atrial fibrillation not on anticoagulation, and chronic low back pain with who presented to the ER early this morning via EMS. She states she went outside around 3am to let her dog back into the house and when she bent forward was unable to extend her torso upright so she sat herself on the ground and was unable to get back up. She was wearing a fleece housecoat but was outside seated for about 5-6 hours before she was able to pull herself to a phone to call EMS. There was no prodrome. No lightheadedness, palpitations, blurred vision, diplopia, presyncope, syncope, or chest pain. No seizure activity. Denies any head strike or loss of consciousness. She is not on any blood thinners. On arrival, EMS did note the patient to be incontinent of stool. Patient does state she has been feeling unwell for several days with sore throat and rhinorrhea and yesterday developed cough. States her son, Isidro, was sick last week. She is also now reporting myalgia. NO fevers, chills, sinus pressure, headache, abdominal pain, nausea, vomiting. On arrival, patient developed hypothermia 93.8 improved to 98.8 under the Kwame Hugger but then dropped again to 93.2 with subsequent improvement to 95.5. She was tachycardic to 106 and initially hypertensive of 207/84 165/96. She was hypoxic on arrival at 85% and placed on supplemental O2 with nasal cannula. WBC 22 with 10% bands. Creatinine 1.39, BUN 38, sodium 138, potassium 5.4, chloride 101, CO2 21, A/G 21, glucose 461. Initial lactic acid 6.2, improved to 2.4 after 2 hours, and 2.0 after 4 hours following 2 L IV NS. CK 623. Initiral Trop-I 463.7, repeat pending. Initial EKG showed Sinus tachy, rate 108 with PVCs. Repeat showed NSR, rate [address]/Twave abnormality. Head CT and cervical spine CT negative for any acute intracranial process and without any visible fractures, dislocation, or subluxation. Chest CT negative for any acute cardiopulmonary disease. Abdomen/pelvis CT showed moderate L5 vertebral body compression fraction, likely recent but without any other acute abdominal or pelvic findings. There is diffuse osteopenia of the bilateral feet and ankle as well as bilateral lower extremities noted on x-rays of the knees, feet, and ankles bilaterally without any visible fractures. In ED, given 2L NS, Tdap, 1gm ceftriaxone, and dexamethasone. Pt to be admitted for frostbite with environmental hypothermia and rhabdo. She has also tested positive for RSV. Review of Systems Review of Systems: General: + malaise. No fevers, unintentional weight loss HEENT: + sore throat, +rhinorrhea. No blurred vision, diplopia. No nasal congestion, pain, ear pain Cardiovascular: No chest pain, palpitations, or leg edema Respiratory: + productive cough. No shortness of breath, wheezing GI: + diarrhea. No abdominal pain, nausea, vomiting, constipation, melena, hematochezia : No dysuria, hematuria, increased urinary frequency, decreased urinary output MSK: No myalgia, back pain Neuro: No headaches, weakness, paresthesias, lightheadedness, syncope Skin: No rashes or lesions [facility] Medical History (Updated 04/09/22 @ 19:24 by TALI Osborn) Hypertension Paroxysmal atrial fibrillation Type 2 diabetes Family History (Updated 04/09/22 @ 18:29 by TALI Osborn) Father Pulmonary embolism Mother Dementia Surgical History (Updated 04/09/22 @ 18:29 by TALI Osborn) History of lumbar laminectomy Social History (Updated 04/09/22 @ 18:29 by TALI Osborn) Alcohol intake: never Patient Tobacco Use Status: Never used Tobacco Smoked in Last 30 Days: No Use of substances other than those prescribed or required for medical reasons: No Advance Directives: No Meds Allergies Allergy/AdvReac Type Severity Reaction Status Date / Time atorvastatin [From Lipitor] AdvReac Joint Pain Verified 04/09/22 10:02 Active Medications: Current Medications Pharmacy Consult (Consult Rx Perform Med Rec) 1 each MISCELLANE ONCE PRN PRN Reason: Consult order Pharmacy Consult (Consult Rx Perform Med Rec) 1 each MISCELLANE ONCE PRN PRN Reason: Consult order Home Medications Medication Instructions Recorded Confirmed Last Taken Type cholecalciferol (vitamin D3) 10 10 mcg PO DAILY 04/09/22 04/09/22 Unknown History mcg (400 unit) capsule dulaglutide 0.75 mg/0.5 mL 0.75 mg subcut TU@1000 04/09/22 04/09/22 04/02/22 History subcutaneous pen injector (Trulicity) lisinopril 40 mg tablet 40 mg PO DAILY 04/09/22 04/09/22 Unknown History metoprolol succinate 50 mg 50 mg PO DAILY 04/09/22 04/09/22 Unknown History tablet,extended release 24 hr Physical Exam Vital Signs and Narrative: Vital Signs: Last Vital Signs Temp 95.5 F L 04/09/22 15:53 Pulse 113 H 04/09/22 15:53 Resp 16 04/09/22 15:53 BP 165/96 H 04/09/22 15:53 Pulse Ox 98 04/09/22 15:53 O2 Del Method 04/09/22 15:53 O2 Flow Rate 2 04/09/22 15:53 BMI result Body Mass Index 27.4 Constitutional - Awake and Alert, No apparent distress Eyes - PERRLA, EOMI Cardiovascular - S1S2, RRR, No edema Respiratory - Normal lung expansion, Normal respiratory effort, No respiratory distress, CTA bilaterally Gastrointestinal - NT / ND; +BS; No rebound or guarding Extremities - no calf tenderness bilaterally, no swelling. Grade II/III frostbite on b/l knees, ankles, feet. See photo Skin - Warm/Dry Neurological - Alert & oriented x3, CN II-XII in tact, 5/5 strength BUE and BLE Psychological - Appropriate affect Results Labs CBC and Chem 7: 04/09/22 11:26 04/09/22 11:26 Labs: Laboratory Results - last 24 hr 04/09/22 04/09/22 04/09/22 10:57 11:25 11:26 MCV 94.3 MCH 29.8 MCHC 31.6 RDW 13.1 Plt Count 294 MPV 10.3 Immature Gran % (Auto) Cancelled Neut % (Auto) Cancelled Lymph % (Auto) Cancelled Morrill % (Auto) Cancelled Eos % (Auto) Cancelled Baso % (Auto) Cancelled Lymph # (Auto) Cancelled Morrill # (Auto) Cancelled Eos # (Auto) Cancelled Baso # (Auto) Cancelled Abs Immat Gran (auto) Cancelled Absolute Neuts (auto) Cancelled Absolute Nucleated RBC 0.000 Nucleated RBC % (auto) 0.0 Neutrophils % (Manual) 85 H Band Neutrophils % 10 H Lymphocytes % (Manual) 3 L Monocytes % (Manual) 2 Abs Neuts (Manual) 20.9 H Lymphocytes # (Manual) 0.7 L Monocytes # (Manual) 0.4 Platelet Estimate NORMAL Plt Morphology Comment NORMAL RBC Morphology NOTED Hypochromasia 1+ (5-14) O2 Saturation ABG pH at Pt Temp ABG pCO2 at Pt Temp ABG pO2 at Pt Temp ABG HCO3 ABG Base Excess (Actual) Anion Gap Estim Creat Clear Calc Estimated GFR POC Glucose 405 H* Random Glucose Lactic Acid 6.2 H* Lactic Acid F/U @ 2Hr Lactic Acid F/U @ 4Hr Calcium Total Bilirubin Direct Bilirubin AST ALT Alkaline Phosphatase Total Creatine Kinase Troponin I High Sens Total Protein Albumin Lipase TSH Urine Color Urine Appearance Urine pH Ur Specific [place] Urine Protein Urine Glucose (UA) Urine Ketones Urine Blood Urine Nitrite Ur Leukocyte Esterase Urine RBC Urine WBC Ur Squamous Epith Cells Urine Bacteria Hyaline Casts Urine Opiates Screen Urine Fentanyl Screen Ur Barbiturates Screen Ur Phencyclidine Scrn Ur Amphetamines Screen U Benzodiazepines Scrn Urine Cocaine Screen U Marijuana (THC) Screen Influenza Type A (PCR) Influenza Type B (PCR) RSV RNA Qual (PCR) SARS-CoV-2 RNA (RT-PCR) 04/09/22 04/09/22 04/09/22 11:26 11:26 12:16 MCV MCH MCHC RDW Plt Count MPV Immature Gran % (Auto) Neut % (Auto) Lymph % (Auto) Mor[place] % (Auto) Eos % (Auto) Baso % (Auto) Lymph # (Auto) Morrill # (Auto) Eos # (Auto) Baso # (Auto) Abs Immat Gran (auto) Absolute Neuts (auto) Absolute Nucleated RBC Nucleated RBC % (auto) Neutrophils % (Manual) Band Neutrophils % Lymphocytes % (Manual) Monocytes % (Manual) Abs Neuts (Manual) Lymphocytes # (Manual) Monocytes # (Manual) Platelet Estimate Plt Morphology Comment RBC Morphology Hypochromasia O2 Saturation ABG pH at Pt Temp ABG pCO2 at Pt Temp ABG pO2 at Pt Temp ABG HCO3 ABG Base Excess (Actual) Anion Gap 21 H Estim Creat Clear Calc 27.2 Estimated GFR 36 POC Glucose Random Glucose 461 H* Lactic Acid Lactic Acid F/U @ 2Hr Lactic Acid F/U @ 4Hr Calcium 9.0 Total Bilirubin 0.7 Direct Bilirubin 0.4 AST 32 H ALT 20 Alkaline Phosphatase 70 Total Creatine Kinase 623 H Troponin I High Sens 463.7 H* Total Protein 6.2 L Albumin 3.7 Lipase 21 TSH 1.61 Urine Color Yellow Urine Appearance Clear Urine pH 5.5 Ur Specific [place] 1.025 Urine Protein Trace Urine Glucose (UA) 500 H Urine Ketones Trace Urine Blood Small (1+) H Urine Nitrite Negative Ur Leukocyte Esterase Negative Urine RBC 3-5 H Urine WBC 0-5 Ur Squamous Epith Cells 0-2 Urine Bacteria Trace Hyaline Casts 0-2 Urine Opiates Screen Urine Fentanyl Screen Ur Barbiturates Screen Ur Phencyclidine Scrn Ur Amphetamines Screen U Benzodiazepines Scrn Urine Cocaine Screen U Marijuana (THC) Screen Influenza Type A (PCR) Influenza Type B (PCR) RSV RNA Qual (PCR) SARS-CoV-2 RNA (RT-PCR) 04/09/22 04/09/22 04/09/22 12:16 12:17 13:44 MCV MCH MCHC RDW Plt Count MPV Immature Gran % (Auto) Neut % (Auto) Lymph % (Auto) Morrill % (Auto) Eos % (Auto) Baso % (Auto) Lymph # (Auto) [place] # (Auto) Eos # (Auto) Baso # (Auto) Abs Immat Gran (auto) Absolute Neuts (auto) Absolute Nucleated RBC Nucleated RBC % (auto) Neutrophils % (Manual) Band Neutrophils % Lymphocytes % (Manual) Monocytes % (Manual) Abs Neuts (Manual) Lymphocytes # (Manual) Monocytes # (Manual) Platelet Estimate Plt Morphology Comment RBC Morphology Hypochromasia O2 Saturation 98.0 ABG pH at Pt Temp 7.37 ABG pCO2 at Pt Temp 28 L ABG pO2 at Pt Temp 94 ABG HCO3 16 L ABG Base Excess (Actual) -7.1 Anion Gap Estim Creat Clear Calc Estimated GFR POC Glucose Random Glucose Lactic Acid Lactic Acid F/U @ 2Hr 2.4 H* Lactic Acid F/U @ 4Hr Calcium Total Bilirubin Direct Bilirubin AST ALT Alkaline Phosphatase Total Creatine Kinase Troponin I High Sens Total Protein Albumin Lipase TSH Urine Color Urine Appearance Urine pH Ur Specific [place] Urine Protein Urine Glucose (UA) Urine Ketones Urine Blood Urine Nitrite Ur Leukocyte Esterase Urine RBC Urine WBC Ur Squamous Epith Cells Urine Bacteria Hyaline Casts Urine Opiates Screen Not Detected Urine Fentanyl Screen Not Detected Ur Barbiturates Screen Not Detected Ur Phencyclidine Scrn Not Detected Ur Amphetamines Screen Not Detected U Benzodiazepines Scrn Not Detected Urine Cocaine Screen Not Detected U Marijuana (THC) Screen Not Detected Influenza Type A (PCR) Influenza Type B (PCR) RSV RNA Qual (PCR) SARS-CoV-2 RNA (RT-PCR) 04/09/22 04/09/22 14:50 16:12 MCV MCH MCHC RDW Plt Count MPV Immature Gran % (Auto) Neut % (Auto) Lymph % (Auto) [place] % (Auto) Eos % (Auto) Baso % (Auto) Lymph # (Auto) [place] # (Auto) Eos # (Auto) Baso # (Auto) Abs Immat Gran (auto) Absolute Neuts (auto) Absolute Nucleated RBC Nucleated RBC % (auto) Neutrophils % (Manual) Band Neutrophils % Lymphocytes % (Manual) Monocytes % (Manual) Abs Neuts (Manual) Lymphocytes # (Manual) Monocytes # (Manual) Platelet Estimate Plt Morphology Comment RBC Morphology Hypochromasia O2 Saturation ABG pH at Pt Temp ABG pCO2 at Pt Temp ABG pO2 at Pt Temp ABG HCO3 ABG Base Excess (Actual) Anion Gap Estim Creat Clear Calc Estimated GFR POC Glucose Random Glucose Lactic Acid Lactic Acid F/U @ 2Hr Lactic Acid F/U @ 4Hr 2.0 Calcium Total Bilirubin Direct Bilirubin AST ALT Alkaline Phosphatase Total Creatine Kinase Troponin I High Sens Total Protein Albumin Lipase TSH Urine Color Urine Appearance Urine pH Ur Specific [place] Urine Protein Urine Glucose (UA) Urine Ketones Urine Blood Urine Nitrite Ur Leukocyte Esterase Urine RBC Urine WBC Ur Squamous Epith Cells Urine Bacteria Hyaline Casts Urine Opiates Screen Urine Fentanyl Screen Ur Barbiturates Screen Ur Phencyclidine Scrn Ur Amphetamines Screen U Benzodiazepines Scrn Urine Cocaine Screen U Marijuana (THC) Screen Influenza Type A (PCR) NEGATIVE Influenza Type B (PCR) NEGATIVE RSV RNA Qual (PCR) POSITIVE A SARS-CoV-2 RNA (RT-PCR) NEGATIVE Imaging Radiologist's Impressions: Impressions Abdomen/Pelvis CT 04/09/22 12:57 IMPRESSION: Moderate L5 vertebral body compression fracture, question recent. Clinical correlation recommended. Postsurgical changes to the lower lumbar spine. No acute abdominal or pelvic findings. Constipation and diverticulosis. Fleischner guidelines were followed. Cervical Spine CT 04/09/22 12:57 IMPRESSION: No acute intracranial process seen. There is no visible acute fracture, dislocation or subluxation in cervical spine. Degenerative disc changes, spondylosis and facet joint arthropathy as described above. No lytic or sclerotic process seen. Chest CT 04/09/22 12:57 IMPRESSION: No evidence for acute disease in the chest. Fleischner guidelines were followed. Head CT 04/09/22 12:57 IMPRESSION: No acute intracranial process seen. There is no visible acute fracture, dislocation or subluxation in cervical spine. Degenerative disc changes, spondylosis and facet joint arthropathy as described above. No lytic or sclerotic process seen. Ankle X-Ray 04/09/22 13:12 IMPRESSION: Diffuse osteopenia in both lower extremities. There is no visible fracture involving either knee, ankle of the foot. 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 There is mild superior patellar spurring right knee. Mild degenerative changes both knee joints. Diffuse osteopenia bilateral foot and ankle. No visible acute fracture or dislocation or soft tissue swelling in either foot or ankle. Calcaneal heel enthesophyte bilateral foot. Ankle X-Ray 04/09/22 13:12 IMPRESSION: Diffuse osteopenia in both lower extremities. There is no visible fracture involving either knee, ankle of the foot. 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 There is mild superior patellar spurring right knee. Mild degenerative changes both knee joints. Diffuse osteopenia bilateral foot and ankle. No visible acute fracture or dislocation or soft tissue swelling in either foot or ankle. Calcaneal heel enthesophyte bilateral foot. Foot X-Ray 04/09/22 13:12 IMPRESSION: Diffuse osteopenia in both lower extremities. There is no visible fracture involving either knee, ankle of the foot. 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 There is mild superior patellar spurring right knee. Mild degenerative changes both knee joints. Diffuse osteopenia bilateral foot and ankle. No visible acute fracture or dislocation or soft tissue swelling in either foot or ankle. Calcaneal heel enthesophyte bilateral foot. Foot X-Ray 04/09/22 13:12 IMPRESSION: Diffuse osteopenia in both lower extremities. There is no visible fracture involving either knee, ankle of the foot. 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 There is mild superior patellar spurring right knee. Mild degenerative changes both knee joints. Diffuse osteopenia bilateral foot and ankle. No visible acute fracture or dislocation or soft tissue swelling in either foot or ankle. Calcaneal heel enthesophyte bilateral foot. Knee X-Ray 04/09/22 13:12 IMPRESSION: Diffuse osteopenia in both lower extremities. There is no visible fracture involving either knee, ankle of the foot. 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 There is mild superior patellar spurring right knee. Mild degenerative changes both knee joints. Diffuse osteopenia bilateral foot and ankle. No visible acute fracture or dislocation or soft tissue swelling in either foot or ankle. Calcaneal heel enthesophyte bilateral foot. Knee X-Ray 04/09/22 13:12 IMPRESSION: Diffuse osteopenia in both lower extremities. There is no visible fracture involving either knee, ankle of the foot. 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 There is mild superior patellar spurring right knee. Mild degenerative changes both knee joints. Diffuse osteopenia bilateral foot and ankle. No visible acute fracture or dislocation or soft tissue swelling in either foot or ankle. Calcaneal heel enthesophyte bilateral foot. Assessment and Plan (1) Hypothermia: Status: Acute (2) NSTEMI (non-ST elevated myocardial infarction): Status: Acute (3) Rhabdomyolysis: Status: Acute (4) Stress-induced cardiomyopathy: Status: Acute (5) Respiratory syncytial virus (RSV): Status: Acute (6) Frostbite: Status: Acute Plan 89-year-old female with history of [id number] type 2 diabetes, hypertension, paroxysmal atrial fibrillation not on anticoagulation, and chronic low back pain admitted for environmental hypothermia with frostbite and secondary rhabdo and NSTEMI with probable stress induced cardiomyopathy. #Enviromental hypothermia -patient sitting in ground outside unable to get up for 5-6 hours -temperature down to 93.8, now 95.5 with Bear Hugger -continue Bear Hugger -VS q2h #Frostbite- stage II/III -Continue IVF -General surgery consult placed ?debridement -rewarming as above # acute hypoxemic respiratory failure -most likely secondary to stress-induced cardiomyopathy/NSTEMI -less likely secondary to RSV given absence of chronic lung disease -chest CT negative for any focal consolidation or acute intra pulmonary abnormality -continue supplemental O2 to maintain oximetry of 92% or greater #NSTEMI/Stress-induced cardiomyopathy -secondary to hypothermia -initial troponin 450, repeat greater than 2300 -EKG showing sinus tach, rate [address]/T-wave abnormalities, no TRISTIN -case discussed with cardiology, consult placed -heparin per protocol initiated per Cardiology -echocardiogram ordered -serial troponins q.6h until peaked # rhabdomyolysis -initial CK 623, repeat 1346 -continue IVF -repeat CK in the morning # RSV infection -acute hypoxia secondary to hypothermia and stress-induced cardiomyopathy/NSTEMI, not likely secondary to RCT -symptomatic management with Robitussin, Tessalon Perles, throat spray -contact precautions # [id number] type 2 diabetes -POC glucose -diabetic diet -Humalog on sliding scale -patient advised she can have her son bring in her Trulicity. Will need to go through pharmacy # L5 compression fracture -age indeterminate, question new -pain well controlled # osteopenia -noted on lower extremity x-rays with new compression fracture L5 -continue vitamin-D -follow-up outpatient with PCP # hypertension -continue lisinopril and metoprolol # paroxysmal atrial fibrillation-rate controlled -not on anticoagulation due to history of lower GI bleed -continue metoprolol Tachycardia econdary to hypothermia with secondary stress-induced cardiomyopathy/NSTEMI causing hypoxia, not severe sepsis. Leukocytosis reactive, not sepsis. Elevated lactic acid secondary to hypoxia and hypothermia, not severe sepsis DVT prophylaxis-on heparin protocol DNR/DNI Patient requires inpatient stay of at least 2 midnights for management of environmental hypothermia with frostbite with stress-induced cardiomyopathy/NSTEMI requiring expert consultation and now on heparin drip per protocol with close monitoring to prevent further cardiac decompensation Quality Stroke Does the patient have a stroke diagnosis?: No VTE Prior VTE?: No VTE Risk Level:: Medical - moderate - high VTE Device Contraindication: Treatment Not Indicated VTE Drug Contraindication: N/A - Med Ordered
[2022-04-09 17:33] LABS: Glucose, Whole Blood 283 mg/dL (60-115)
[2022-04-09 18:04] LABS: Anion Gap 18 (12-20); Blood Urea Nitrogen 36 mg/dL (9-16); Calcium 8.7 mg/dL (8.4-10.2); Carbon Dioxide 20 mmol/L (22-29); Chloride 106 mmol/L (96-108); Creatinine Clr Calc Pharmacy 31.3; Estimated Glomerular Filt Rate 42; Glucose Random 305 mg/dL (60-115); Potassium 4.9 mmol/L (3.3-5.1); Sodium 139 mmol/L (135-145)
[2022-04-09 18:05] LABS: Troponin-I High Sensitivity 2341.4 ng/L (<3.5-17.0)
[2022-04-09 19:17] LABS: Prothrombin Time 11.9 SEC (10.0-13.1)
[2022-04-09 19:19] LABS: PTT Heparin Drip 27.7 SEC (53-77.9)
[2022-04-09] MEDS: 0.9 % Sodium Chloride 1,000 ML 100 ML IVCONT (19:20)
[2022-04-09] MEDS: Heparin Sodium,Porcine 5,000 UNIT/ML VIAL 4000 UNIT IVPUSH (19:20)
[2022-04-09] MEDS: Benzonatate 100 MG CAPSULE PO (19:37)
--- NOTE | 2022-04-09 19:47 | PC.NURSE ---
2000 rounding done ,pt was assisted unto bedpan ,pt had medium soft bowel movement ,care given all bed linen change ,bear hugger blanket remove as pt temp went up to 100 .2 rn darryl is aware ,pt vitals sign taken purewick was placed ,pt had 100 % of barley and beef soup with a cup of tea for supper .pt is watching a movie on [employer] ,call da silva within reach .
[2022-04-09] MEDS: Heparin Sodium,Porcine/1/2NS 25,000 UNIT/250 ML IV.SOLN 8.17 UNIT IVCONT (20:09)
[2022-04-09 21:20] LABS: Glucose, Whole Blood 268 mg/dL (60-115)
[2022-04-09] MEDS: Acetaminophen 325 MG TABLET 650 MG PO (23:43)
[2022-04-09] MEDS: Insulin Lispro 100 UNIT/ML 3 ML VIAL SUBCUT (23:48)
[2022-04-10] VITALS (9 sets, daily range): BP systolic 107–156; BP diastolic 40–69; PULSE 68–107; RESP 16–20; TEMP 36.4–37.5; O2SAT 90–99
--- NOTE | 2022-04-10 | ECG_ITS ---
Test Reason : RSV Blood Pressure : / mmHG Vent. Rate : 064 BPM Atrial Rate : 064 BPM P-R Int : 134 ms QRS Dur : 074 ms QT Int : 406 ms P-R-T Axes : 033 019 024 degrees QTc Int : 418 ms Normal sinus rhythm Low voltage QRS Borderline ECG When compared with ECG of 09-APR-2022 23:07, Premature ventricular complexes are no longer Present Heart rate has decreased Referred By: Pete Herring Electronically Signed By:KOBE THURMAN MD
[2022-04-10 00:06] LABS: Glucose, Whole Blood 239 mg/dL (60-115)
[2022-04-10 02:54] LABS: Troponin-I High Sensitivity 3513.6 ng/L (<3.5-17.0)
[2022-04-10 03:00] LABS: PTT Heparin Drip 151.3 SEC (53-77.9)
[2022-04-10 04:58] LABS: MANUAL DIFF FLAG NO
[2022-04-10 05:01] LABS: Basophils Percent Auto 0.2 % (0-2); Eosinophils Percent Auto 0.1 % (0-4); Hematocrit 30.6 % (37.0-47.0); Hemoglobin 9.8 g/dl (12.0-16.0); Imm Gran Abs Auto 0.06 X10*3/uL (0.00-0.03); Imm Gran Pct Auto 0.3 % (0.0-0.4); Lymphocytes Absolute Auto 0.9 X10*3/uL (1.2-4.9); Lymphocytes Percent Auto 4.9 % (20-40); Mean Corpuscular Hemoglobin 29.6 pg (27.0-33.0); Mean Corpuscular Volume 92.4 fL (80.0-98.0); Mean Platelet Volume 10.7 fL (9.4-12.3); Monocytes Absolute Auto 1.5 X10*3/uL (0.1-1.2); Neutrophils Absolute Auto 16.3 x10*3/uL (2.0-8.3); Neutrophils Percent Auto 86.5 % (45-73); Platelet Count 270 X10*3/uL (160-400); Red Blood Count 3.31 X10*6/uL (4.20-5.50); Red Cell Distribution Width 13.3 % (11.0-16.0); White Blood Count 18.8 X10*3/uL (4.8-10.8)
[2022-04-10 05:08] LABS: INTERNATIONAL NORM RATIO 1.1 (0.9-1.1); Prothrombin Time 12.8 SEC (10.0-13.1)
[2022-04-10 05:11] LABS: PTT Heparin Drip 71.7 SEC (53-77.9)
[2022-04-10 05:16] LABS: Anion Gap 18 (12-20); Blood Urea Nitrogen 37 mg/dL (9-16); Calcium 8.1 mg/dL (8.4-10.2); Carbon Dioxide 17 mmol/L (22-29); Chloride 108 mmol/L (96-108); Creatinine Clr Calc Pharmacy 35.4; Estimated Glomerular Filt Rate 49; Glucose Random 208 mg/dL (60-115); Potassium 4.3 mmol/L (3.3-5.1); Sodium 139 mmol/L (135-145)
[2022-04-10 05:51] LABS: Troponin-I High Sensitivity > 3600.0 ng/L (<3.5-17.0)
[2022-04-10] MEDS: 0.9 % Sodium Chloride 1,000 ML 100 ML IVCONT ×2 (06:55→15:28)
--- NOTE | 2022-04-10 07:00 | CA_ITS ---
Transthoracic Echocardiogram Patient (Last, First, Middle): Lynda Diez M Gender: Female Date of : 1935 Age: 86 Procedure Date: 04/10/2022 Procedure Type: Transthoracic Echocardiogram [place] [facility] [place]: 157.48 cm Weight: 68.04 kg BSA: 1.69 m2 Heart Rate: bpm BP: 152 / 60 mmHg Reading Assistant: TO Referring MD: Zulay CESAR Retail Assistant Manager: Pete Herring MD Symptoms: elevated trop Study Quality: Technically Difficult/Contrast ECG Rhythm: Sinus Conclusions: - 1. Technically difficult study despite use of contrast agent 2. Normal LV systolic function with impaired relaxation filling pattern with regional wall motion abnormality in RCA territory which appear to be old 3. Mild aortic regurgitation 4. Normal RV systolic pressure 5. No gross pericardial effusion Findings Procedure Information Contrast agent, definity, is being given per protocol without apparent complications. Left Ventricle Normal left ventricular size, thickness, and systolic function. The visually estimated ejection fraction is between 60-65%. Spectral Doppler is indicative of an impaired relaxation filling pattern. Wall Motion Rest Echo Findings The apical inferior, basal inferior, and basal inferoseptal segments are akinetic. All other scored wall segments showed normal motion. Right Ventricle Normal right ventricular cavity size and systolic function. Atria The left atrium is normal in size. Interatrial shunt cannot be excluded. The right atrium was not well visualized. Aortic Valve There is mild calcification of the aortic valve. There is no aortic valve stenosis. There is mild aortic valve regurgitation. Mitral Valve There is mild anterior mitral leaflet thickening. There is mild mitral annular calcification. There is trace mitral valve regurgitation. There is no mitral valve stenosis. Pulmonic Valve The pulmonic valve was not well visualized. Tricuspid Valve The tricuspid valve was not well visualized. There is mild tricuspid valve regurgitation. The right ventricular systolic pressure is normal. Normal right atrial pressure. There is no evidence of pulmonary hypertension. Great Vessels All visible segments of the aorta are normal in size. The pulmonary artery was not well visualized. Small plaque is seen in the sino tubular ridge and ascending aorta. Venous The inferior vena cava is normal in size and collapses greater than 50% with inspiration. Pericardium/Pleural There is no evidence of pericardial effusion. Prior Study Comparison No prior study available for comparison. Measurements 2D Linear Measurements IVSd: 1.01 0.6-0.9/0.6-1.0 cm LVIDd: 3.90 3.9-5.3/4.2-5.9 cm LVIDd Index: 2.31 2.4-3.2/2.2-3.1 cm/m2 LVIDs: 2.71 2.0-3.6 cm LVPWd: 0.83 0.7-1.1 cm LA Diam: 3.00 2.7-3.8/3.0-4.0 cm LAIDs Index: 1.78 1.5-2.3 cm/m2 LV Mass: 135.40 67-162/88-224 g LV Mass Index: 80.12 43-95/49-115 g/m2 LVOT Diam: 2.00 3.0+(-)1.3 cm 2D Systolic Function EF 4C: 64.90 >55% Mitral Valve MV Pk E: 0.69 MV PK A: 0.94 MV Decel Time: 246.00 E/A: 0.70 E'Lateral: 5.93 E/E' Lat: 11.70 PHT: 72.00 MVA PHT: 3.06 Decel Lipscomb: 2.82 Aortic Valve AoV Pk Jordin: 1.14 AoV Mn Jordin: 0.84 AoV VTI: 0.24 AoV Pk Grad: 5.00 Aov Mn Grad: 3.00 ALLIE Cont.VTI: 2.34 AI Pk Jordin: 3.70 AI Lipscomb: 3.05 LVOT LVOT Pk Jordin: 0.85 LVOT Mn Jordin: 0.63 LVOT VTI: 0.18 LVOT Pk Grad: 3.00 LVOT Mn Grad: 2.00 LVOT Diam: 2.00 LVOT Area: 3.14 Diastolic Function MV Pk E: 0.69 MV Pk A: 0.94 E/A: 0.70 E' Laterial: 5.93 E/E' Lat: 11.70 Right Ventricle TAPSE (mm): 23.20 TVS' Jordin: 14.40 Tricuspid Valve TR Pk Jordin: 2.92 TR Pk Grad: 34.00 RA Press: 3.00 RVSP: 37.00 Great Vessels Aorta Sinus of Valsalva: 2.88 2.0-3.[address] Ridge: 2.11 1.7-3.4 cm Ao Asc: 3.40 2.1-3.4 cm Updated in Other Vendor System with Status of Final Pete Herring MD electronically signed on 04/11/2022 8:59:57 AM with status of Final
[2022-04-10 07:21] LABS: Glucose, Whole Blood 171 mg/dL (60-115)
[2022-04-10] MEDS: lisinopriL 40 MG TABLET PO (08:30)
[2022-04-10] MEDS: Cholecalciferol (Vitamin D3) 10 MCG TABLET PO (08:30)
[2022-04-10] MEDS: Insulin Lispro 100 UNIT/ML 3 ML VIAL SUBCUT ×4 (08:30→20:27)
[2022-04-10] MEDS: Metoprolol Succinate ER 50 MG TAB.ER.24H PO (08:30)
[2022-04-10] MEDS: Benzonatate 100 MG CAPSULE PO (08:30)
[2022-04-10] MEDS: 0.9 % Sodium Chloride Flush 3 ML SYRINGE IVFLUSH ×2 (08:31→17:10)
--- NOTE | 2022-04-10 08:38 | P.PNIM_ITS ---
Subjective Subjective Date of Service: 04/10/22 Interval History: Seen in follow-up for environmental hypothermia with secondary NSTEMI/stress- induced cardiomyopathy and rhabdomyolysis Interval history: Patient reporting myalgias in the bilateral lower extremities. Still coughing. Denies any paresthesias, weakness, shortness of breath, palpitations, lightheadedness, chest pain. Review of Systems General: No fevers, malaise, unintentional weight loss HEENT: +sore throat. No nasal congestion, rhinorrhea, sinus pain, ear pain Cardiovascular: No chest pain, palpitations, or leg edema Respiratory:Cough. No shortness of breath, wheezing GI: No abdominal pain, nausea, vomiting, diarrhea MSK: +myalgia. No back pain Neuro: No headaches, weakness, paresthesias Skin: No rashes or lesions Physical Exam Vital Signs: Vital Signs: Last Vital Signs Temp 97.5 F 04/10/22 07:42 Pulse 88 04/10/22 07:42 Resp 20 04/10/22 07:42 BP 132/58 L 04/10/22 07:42 Pulse Ox 95 04/10/22 07:42 O2 Del Method 04/10/22 07:42 O2 Flow Rate 2 04/09/22 15:53 BMI result Body Mass Index 27.4 Constitutional - Awake and Alert, No apparent distress Eyes - PERRLA, EOMI Cardiovascular - S1S2, RRR, No edema Respiratory - Normal lung expansion, Normal respiratory effort, No respiratory distress, Diffuse rhonchorous breath sounds bilaterally with scattered wheezes Gastrointestinal - NT / ND; +BS; No rebound or guarding Extremities - no calf tenderness bilaterally, see skin Skin - Warm/Dry. Dusky hyperpigmentation with mild non pitting edema/swelling with areas of friction induced wounds to the bilateral knees, ankles, and feet, suspicious for frostbite. See prior notes for images. Neurological - Alert & oriented x3, 5/5 strength BUE and BLE, sensation in tact Psychological - Appropriate affect Objective Data Active Medications Acetaminophen (Acetaminophen 325 Mg Tablet) 650 mg PO Q6H PRN PRN Reason: Pain, Mild (Pain Scale 1-3) Last Admin: 04/09/22 23:43 Dose: 650 mg Documented By: HANANE Albuterol Sulfate (Albuterol Sulfate (0.083%) 2.5 Mg/3 Ml Vial.Neb) 2.5 mg INHALE Q4H PRN PRN Reason: Wheezing Benzonatate (Benzonatate 100 Mg Capsule) 100 mg PO TID PRN PRN Reason: Cough Last Admin: 04/10/22 08:30 Dose: 100 mg Documented By: DOROTEO Dextrose (Dextrose 50 % 25 Gm/50 Ml Syringe) 25 gm IVPUSH Q15M PRN; Protocol PRN Reason: per Hypoglycemia Standing Ord. Glucose (Glucose Gel 15 Gm Gel..Gram.) 15 gm PO Q15M PRN; Protocol PRN Reason: per Hypoglycemia Standing Ord. Heparin Sodium (Porcine) (Heparin Sodium,Porcine 5,000 Unit/Ml Vial) 2,700 unit 40 unit/kg (2700 unit) IVPUSH PROTOCOL BOLUS PRN; Protocol PRN Reason: 40 unit/kg - Heparin Protocol Heparin Sodium (Porcine) (Heparin Sodium,Porcine 5,000 Unit/Ml Vial) 5,400 unit 80 unit/kg (5400 unit) IVPUSH PROTOCOL BOLUS PRN; Protocol PRN Reason: 80 unit/kg - Heparin Protocol Sodium Chloride (Ns) 1,000 mls @ 125 mls/hr IVCONT .Q8H [facility] Last Admin: 04/10/22 06:55 Dose: 100 mls/hr Documented By: HANANE Heparin Sodium/Sodium Chloride (Heparin Sodium,Porcine/1/2ns) 25,000 unit in 250 mls @ 0 mls/hr IVCONT .Q0M [facility]; Protocol Last Titration: 04/10/22 05:17 Dose: 8 units/kg/hr, 5.44 mls/hr Documented By: HANANE Co-signed By: ALEC Insulin Human Lispro (Insulin Lispro 100 Unit/Ml 3 Ml Vial) 0 unit SUBCUT QIDACHS [facility]; Protocol Last Admin: 04/10/22 08:30 Dose: 2 unit Documented By: DOROTEO Lisinopril (Lisinopril 40 Mg Tablet) 40 mg PO DAILY [facility]; Protocol Last Admin: 04/10/22 08:30 Dose: 40 mg Documented By: DOROTEO Metoprolol Succinate (Metoprolol Succinate Er 50 Mg Tab.Er.24h) 50 mg PO DAILY [facility]; Protocol Last Admin: 04/10/22 08:30 Dose: 50 mg Documented By: DOROTEO Ondansetron HCl (Ondansetron Hcl 4 Mg/2 Ml Vial) 4 mg IVPUSH Q8H PRN PRN Reason: Nausea and Vomiting Pharmacy Consult (Consult Rx Perform Med Rec) 1 each MISCELLANE ONCE PRN PRN Reason: Consult order Pharmacy Consult (Consult Rx Perform Med Rec) 1 each MISCELLANE ONCE PRN PRN Reason: Consult order Sodium Chloride (0.9 % Sodium Chloride Flush 3 Ml Syringe) 3 ml IVFLUSH QSHIFT [facility] Last Admin: 04/10/22 08:31 Dose: 3 ml Documented By: DOROTEO Vitamin D (Cholecalciferol (Vitamin D3) 10 Mcg Tablet) 10 mcg PO DAILY [facility] Last Admin: 04/10/22 08:30 Dose: 10 mcg Documented By: DOROTEO Labs CBC & Chem 7: 04/10/22 04:34 04/10/22 04:34 Labs: Laboratory Results - last 24 hr 04/09/22 04/09/22 04/09/22 10:57 11:25 11:26 MCV 94.3 MCH 29.8 MCHC 31.6 RDW 13.1 Plt Count 294 MPV 10.3 Immature Gran % (Auto) Cancelled Neut % (Auto) Cancelled Lymph % (Auto) Cancelled [place] % (Auto) Cancelled Eos % (Auto) Cancelled Baso % (Auto) Cancelled Lymph # (Auto) Cancelled [place] # (Auto) Cancelled Eos # (Auto) Cancelled Baso # (Auto) Cancelled Abs Immat Gran (auto) Cancelled Absolute Neuts (auto) Cancelled Absolute Nucleated RBC 0.000 Nucleated RBC % (auto) 0.0 Neutrophils % (Manual) 85 H Band Neutrophils % 10 H Lymphocytes % (Manual) 3 L Monocytes % (Manual) 2 Abs Neuts (Manual) 20.9 H Lymphocytes # (Manual) 0.7 L Monocytes # (Manual) 0.4 Platelet Estimate NORMAL Plt Morphology Comment NORMAL RBC Morphology NOTED Hypochromasia 1+ (5-14) PT INR aPTT Heparin Protocol O2 Saturation ABG pH at Pt Temp ABG pCO2 at Pt Temp ABG pO2 at Pt Temp ABG HCO3 ABG Base Excess (Actual) Anion Gap Estim Creat Clear Calc Estimated GFR POC Glucose 405 H* Random Glucose Lactic Acid 6.2 H* Lactic Acid F/U @ 2Hr Lactic Acid F/U @ 4Hr Calcium Total Bilirubin Direct Bilirubin AST ALT Alkaline Phosphatase Total Creatine Kinase Troponin I High Sens Total Protein Albumin Lipase TSH Urine Color Urine Appearance Urine pH Ur Specific [place] Urine Protein Urine Glucose (UA) Urine Ketones Urine Blood Urine Nitrite Ur Leukocyte Esterase Urine RBC Urine WBC Ur Squamous Epith Cells Urine Bacteria Hyaline Casts Urine Opiates Screen Urine Fentanyl Screen Ur Barbiturates Screen Ur Phencyclidine Scrn Ur Amphetamines Screen U Benzodiazepines Scrn Urine Cocaine Screen U Marijuana (THC) Screen Influenza Type A (PCR) Influenza Type B (PCR) RSV RNA Qual (PCR) SARS-CoV-2 RNA (RT-PCR) 04/09/22 04/09/22 04/09/22 11:26 11:26 12:16 MCV MCH MCHC RDW Plt Count MPV Immature Gran % (Auto) Neut % (Auto) Lymph % (Auto) [place] % (Auto) Eos % (Auto) Baso % (Auto) Lymph # (Auto) [place] # (Auto) Eos # (Auto) Baso # (Auto) Abs Immat Gran (auto) Absolute Neuts (auto) Absolute Nucleated RBC Nucleated RBC % (auto) Neutrophils % (Manual) Band Neutrophils % Lymphocytes % (Manual) Monocytes % (Manual) Abs Neuts (Manual) Lymphocytes # (Manual) Monocytes # (Manual) Platelet Estimate Plt Morphology Comment RBC Morphology Hypochromasia PT INR aPTT Heparin Protocol O2 Saturation ABG pH at Pt Temp ABG pCO2 at Pt Temp ABG pO2 at Pt Temp ABG HCO3 ABG Base Excess (Actual) Anion Gap 21 H Estim Creat Clear Calc 27.2 Estimated GFR 36 POC Glucose Random Glucose 461 H* Lactic Acid Lactic Acid F/U @ 2Hr Lactic Acid F/U @ 4Hr Calcium 9.0 Total Bilirubin 0.7 Direct Bilirubin 0.4 AST 32 H ALT 20 Alkaline Phosphatase 70 Total Creatine Kinase 623 H Troponin I High Sens 463.7 H* Total Protein 6.2 L Albumin 3.7 Lipase 21 TSH 1.61 Urine Color Yellow Urine Appearance Clear Urine pH 5.5 Ur Specific [place] 1.025 Urine Protein Trace Urine Glucose (UA) 500 H Urine Ketones Trace Urine Blood Small (1+) H Urine Nitrite Negative Ur Leukocyte Esterase Negative Urine RBC 3-5 H Urine WBC 0-5 Ur Squamous Epith Cells 0-2 Urine Bacteria Trace Hyaline Casts 0-2 Urine Opiates Screen Urine Fentanyl Screen Ur Barbiturates Screen Ur Phencyclidine Scrn Ur Amphetamines Screen U Benzodiazepines Scrn Urine Cocaine Screen U Marijuana (THC) Screen Influenza Type A (PCR) Influenza Type B (PCR) RSV RNA Qual (PCR) SARS-CoV-2 RNA (RT-PCR) 04/09/22 04/09/22 04/09/22 12:16 12:17 13:44 MCV MCH MCHC RDW Plt Count MPV Immature Gran % (Auto) Neut % (Auto) Lymph % (Auto) [place] % (Auto) Eos % (Auto) Baso % (Auto) Lymph # (Auto) [place] # (Auto) Eos # (Auto) Baso # (Auto) Abs Immat Gran (auto) Absolute Neuts (auto) Absolute Nucleated RBC Nucleated RBC % (auto) Neutrophils % (Manual) Band Neutrophils % Lymphocytes % (Manual) Monocytes % (Manual) Abs Neuts (Manual) Lymphocytes # (Manual) Monocytes # (Manual) Platelet Estimate Plt Morphology Comment RBC Morphology Hypochromasia PT INR aPTT Heparin Protocol O2 Saturation 98.0 ABG pH at Pt Temp 7.37 ABG pCO2 at Pt Temp 28 L ABG pO2 at Pt Temp 94 ABG HCO3 16 L ABG Base Excess (Actual) -7.1 Anion Gap Estim Creat Clear Calc Estimated GFR POC Glucose Random Glucose Lactic Acid Lactic Acid F/U @ 2Hr 2.4 H* Lactic Acid F/U @ 4Hr Calcium Total Bilirubin Direct Bilirubin AST ALT Alkaline Phosphatase Total Creatine Kinase Troponin I High Sens Total Protein Albumin Lipase TSH Urine Color Urine Appearance Urine pH Ur Specific [place] Urine Protein Urine Glucose (UA) Urine Ketones Urine Blood Urine Nitrite Ur Leukocyte Esterase Urine RBC Urine WBC Ur Squamous Epith Cells Urine Bacteria Hyaline Casts Urine Opiates Screen Not Detected Urine Fentanyl Screen Not Detected Ur Barbiturates Screen Not Detected Ur Phencyclidine Scrn Not Detected Ur Amphetamines Screen Not Detected U Benzodiazepines Scrn Not Detected Urine Cocaine Screen Not Detected U Marijuana (THC) Screen Not Detected Influenza Type A (PCR) Influenza Type B (PCR) RSV RNA Qual (PCR) SARS-CoV-2 RNA (RT-PCR) 04/09/22 04/09/22 04/09/22 14:50 16:12 16:35 MCV MCH MCHC RDW Plt Count MPV Immature Gran % (Auto) Neut % (Auto) Lymph % (Auto) [place] % (Auto) Eos % (Auto) Baso % (Auto) Lymph # (Auto) [place] # (Auto) Eos # (Auto) Baso # (Auto) Abs Immat Gran (auto) Absolute Neuts (auto) Absolute Nucleated RBC Nucleated RBC % (auto) Neutrophils % (Manual) Band Neutrophils % Lymphocytes % (Manual) Monocytes % (Manual) Abs Neuts (Manual) Lymphocytes # (Manual) Monocytes # (Manual) Platelet Estimate Plt Morphology Comment RBC Morphology Hypochromasia PT INR aPTT Heparin Protocol O2 Saturation ABG pH at Pt Temp ABG pCO2 at Pt Temp ABG pO2 at Pt Temp ABG HCO3 ABG Base Excess (Actual) Anion Gap Estim Creat Clear Calc Estimated GFR POC Glucose Random Glucose Lactic Acid Lactic Acid F/U @ 2Hr Lactic Acid F/U @ 4Hr 2.0 Calcium Total Bilirubin Direct Bilirubin AST ALT Alkaline Phosphatase Total Creatine Kinase Cancelled Troponin I High Sens Total Protein Albumin Lipase TSH Urine Color Urine Appearance Urine pH Ur Specific [place] Urine Protein Urine Glucose (UA) Urine Ketones Urine Blood Urine Nitrite Ur Leukocyte Esterase Urine RBC Urine WBC Ur Squamous Epith Cells Urine Bacteria Hyaline Casts Urine Opiates Screen Urine Fentanyl Screen Ur Barbiturates Screen Ur Phencyclidine Scrn Ur Amphetamines Screen U Benzodiazepines Scrn Urine Cocaine Screen U Marijuana (THC) Screen Influenza Type A (PCR) NEGATIVE Influenza Type B (PCR) NEGATIVE RSV RNA Qual (PCR) POSITIVE A SARS-CoV-2 RNA (RT-PCR) NEGATIVE 04/09/22 04/09/22 04/09/22 17:19 17:19 17:28 MCV MCH MCHC RDW Plt Count MPV Immature Gran % (Auto) Neut % (Auto) Lymph % (Auto) [place] % (Auto) Eos % (Auto) Baso % (Auto) Lymph # (Auto) [place] # (Auto) Eos # (Auto) Baso # (Auto) Abs Immat Gran (auto) Absolute Neuts (auto) Absolute Nucleated RBC Nucleated RBC % (auto) Neutrophils % (Manual) Band Neutrophils % Lymphocytes % (Manual) Monocytes % (Manual) Abs Neuts (Manual) Lymphocytes # (Manual) Monocytes # (Manual) Platelet Estimate Plt Morphology Comment RBC Morphology Hypochromasia PT INR aPTT Heparin Protocol O2 Saturation ABG pH at Pt Temp ABG pCO2 at Pt Temp ABG pO2 at Pt Temp ABG HCO3 ABG Base Excess (Actual) Anion Gap 18 Estim Creat Clear Calc 31.3 Estimated GFR 42 POC Glucose 283 H Random Glucose 305 H Lactic Acid Lactic Acid F/U @ 2Hr Lactic Acid F/U @ 4Hr Calcium 8.7 Total Bilirubin Direct Bilirubin AST ALT Alkaline Phosphatase Total Creatine Kinase 1346 H Troponin I High Sens 2341.4 H* Total Protein Albumin Lipase TSH Urine Color Urine Appearance Urine pH Ur Specific [place] Urine Protein Urine Glucose (UA) Urine Ketones Urine Blood Urine Nitrite Ur Leukocyte Esterase Urine RBC Urine WBC Ur Squamous Epith Cells Urine Bacteria Hyaline Casts Urine Opiates Screen Urine Fentanyl Screen Ur Barbiturates Screen Ur Phencyclidine Scrn Ur Amphetamines Screen U Benzodiazepines Scrn Urine Cocaine Screen U Marijuana (THC) Screen Influenza Type A (PCR) Influenza Type B (PCR) RSV RNA Qual (PCR) SARS-CoV-2 RNA (RT-PCR) 04/09/22 04/09/22 04/09/22 19:03 21:16 23:47 MCV MCH MCHC RDW Plt Count MPV Immature Gran % (Auto) Neut % (Auto) Lymph % (Auto) [place] % (Auto) Eos % (Auto) Baso % (Auto) Lymph # (Auto) [place] # (Auto) Eos # (Auto) Baso # (Auto) Abs Immat Gran (auto) Absolute Neuts (auto) Absolute Nucleated RBC Nucleated RBC % (auto) Neutrophils % (Manual) Band Neutrophils % Lymphocytes % (Manual) Monocytes % (Manual) Abs Neuts (Manual) Lymphocytes # (Manual) Monocytes # (Manual) Platelet Estimate Plt Morphology Comment RBC Morphology Hypochromasia PT 11.9 INR 1.0 aPTT Heparin Protocol 27.7 L O2 Saturation ABG pH at Pt Temp ABG pCO2 at Pt Temp ABG pO2 at Pt Temp ABG HCO3 ABG Base Excess (Actual) Anion Gap Estim Creat Clear Calc Estimated GFR POC Glucose 268 H 239 H Random Glucose Lactic Acid Lactic Acid F/U @ 2Hr Lactic Acid F/U @ 4Hr Calcium Total Bilirubin Direct Bilirubin AST ALT Alkaline Phosphatase Total Creatine Kinase Troponin I High Sens Total Protein Albumin Lipase TSH Urine Color Urine Appearance Urine pH Ur Specific [place] Urine Protein Urine Glucose (UA) Urine Ketones Urine Blood Urine Nitrite Ur Leukocyte Esterase Urine RBC Urine WBC Ur Squamous Epith Cells Urine Bacteria Hyaline Casts Urine Opiates Screen Urine Fentanyl Screen Ur Barbiturates Screen Ur Phencyclidine Scrn Ur Amphetamines Screen U Benzodiazepines Scrn Urine Cocaine Screen U Marijuana (THC) Screen Influenza Type A (PCR) Influenza Type B (PCR) RSV RNA Qual (PCR) SARS-CoV-2 RNA (RT-PCR) 04/10/22 04/10/22 04/10/22 02:05 02:05 04:34 MCV 92.4 MCH 29.6 MCHC 32.0 RDW 13.3 Plt Count 270 MPV 10.7 Immature Gran % (Auto) 0.3 Neut % (Auto) 86.5 H Lymph % (Auto) 4.9 L [place] % (Auto) 8.0 Eos % (Auto) 0.1 Baso % (Auto) 0.2 Lymph # (Auto) 0.9 L [place] # (Auto) 1.5 H Eos # (Auto) 0.0 Baso # (Auto) 0.0 Abs Immat Gran (auto) 0.06 H Absolute Neuts (auto) 16.3 H Absolute Nucleated RBC 0.000 Nucleated RBC % (auto) 0.0 Neutrophils % (Manual) Band Neutrophils % Lymphocytes % (Manual) Monocytes % (Manual) Abs Neuts (Manual) Lymphocytes # (Manual) Monocytes # (Manual) Platelet Estimate Plt Morphology Comment RBC Morphology Hypochromasia PT INR aPTT Heparin Protocol 151.3 H* D O2 Saturation ABG pH at Pt Temp ABG pCO2 at Pt Temp ABG pO2 at Pt Temp ABG HCO3 ABG Base Excess (Actual) Anion Gap Estim Creat Clear Calc Estimated GFR POC Glucose Random Glucose Lactic Acid Lactic Acid F/U @ 2Hr Lactic Acid F/U @ 4Hr Calcium Total Bilirubin Direct Bilirubin AST ALT Alkaline Phosphatase Total Creatine Kinase Troponin I High Sens 3513.6 H* D Total Protein Albumin Lipase TSH Urine Color Urine Appearance Urine pH Ur Specific [place] Urine Protein Urine Glucose (UA) Urine Ketones Urine Blood Urine Nitrite Ur Leukocyte Esterase Urine RBC Urine WBC Ur Squamous Epith Cells Urine Bacteria Hyaline Casts Urine Opiates Screen Urine Fentanyl Screen Ur Barbiturates Screen Ur Phencyclidine Scrn Ur Amphetamines Screen U Benzodiazepines Scrn Urine Cocaine Screen U Marijuana (THC) Screen Influenza Type A (PCR) Influenza Type B (PCR) RSV RNA Qual (PCR) SARS-CoV-2 RNA (RT-PCR) 04/10/22 04/10/22 04/10/22 04:34 04:34 04:34 MCV MCH MCHC RDW Plt Count MPV Immature Gran % (Auto) Neut % (Auto) Lymph % (Auto) [place] % (Auto) Eos % (Auto) Baso % (Auto) Lymph # (Auto) [place] # (Auto) Eos # (Auto) Baso # (Auto) Abs Immat Gran (auto) Absolute Neuts (auto) Absolute Nucleated RBC Nucleated RBC % (auto) Neutrophils % (Manual) Band Neutrophils % Lymphocytes % (Manual) Monocytes % (Manual) Abs Neuts (Manual) Lymphocytes # (Manual) Monocytes # (Manual) Platelet Estimate Plt Morphology Comment RBC Morphology Hypochromasia PT 12.8 INR 1.1 aPTT Heparin Protocol O2 Saturation ABG pH at Pt Temp ABG pCO2 at Pt Temp ABG pO2 at Pt Temp ABG HCO3 ABG Base Excess (Actual) Anion Gap 18 Estim Creat Clear Calc 35.4 Estimated GFR 49 POC Glucose Random Glucose 208 H Lactic Acid Lactic Acid F/U @ 2Hr Lactic Acid F/U @ 4Hr Calcium 8.1 L D Total Bilirubin Direct Bilirubin AST ALT Alkaline Phosphatase Total Creatine Kinase 2203 H Troponin I High Sens > 3600.0 H* Total Protein Albumin Lipase TSH Urine Color Urine Appearance Urine pH Ur Specific [place] Urine Protein Urine Glucose (UA) Urine Ketones Urine Blood Urine Nitrite Ur Leukocyte Esterase Urine RBC Urine WBC Ur Squamous Epith Cells Urine Bacteria Hyaline Casts Urine Opiates Screen Urine Fentanyl Screen Ur Barbiturates Screen Ur Phencyclidine Scrn Ur Amphetamines Screen U Benzodiazepines Scrn Urine Cocaine Screen U Marijuana (THC) Screen Influenza Type A (PCR) Influenza Type B (PCR) RSV RNA Qual (PCR) SARS-CoV-2 RNA (RT-PCR) 04/10/22 04/10/22 04:34 07:14 MCV MCH MCHC RDW Plt Count MPV Immature Gran % (Auto) Neut % (Auto) Lymph % (Auto) [place] % (Auto) Eos % (Auto) Baso % (Auto) Lymph # (Auto) [place] # (Auto) Eos # (Auto) Baso # (Auto) Abs Immat Gran (auto) Absolute Neuts (auto) Absolute Nucleated RBC Nucleated RBC % (auto) Neutrophils % (Manual) Band Neutrophils % Lymphocytes % (Manual) Monocytes % (Manual) Abs Neuts (Manual) Lymphocytes # (Manual) Monocytes # (Manual) Platelet Estimate Plt Morphology Comment RBC Morphology Hypochromasia PT INR aPTT Heparin Protocol 71.7 D O2 Saturation ABG pH at Pt Temp ABG pCO2 at Pt Temp ABG pO2 at Pt Temp ABG HCO3 ABG Base Excess (Actual) Anion Gap Estim Creat Clear Calc Estimated GFR POC Glucose 171 H Random Glucose Lactic Acid Lactic Acid F/U @ 2Hr Lactic Acid F/U @ 4Hr Calcium Total Bilirubin Direct Bilirubin AST ALT Alkaline Phosphatase Total Creatine Kinase Troponin I High Sens Total Protein Albumin Lipase TSH Urine Color Urine Appearance Urine pH Ur Specific [place] Urine Protein Urine Glucose (UA) Urine Ketones Urine Blood Urine Nitrite Ur Leukocyte Esterase Urine RBC Urine WBC Ur Squamous Epith Cells Urine Bacteria Hyaline Casts Urine Opiates Screen Urine Fentanyl Screen Ur Barbiturates Screen Ur Phencyclidine Scrn Ur Amphetamines Screen U Benzodiazepines Scrn Urine Cocaine Screen U Marijuana (THC) Screen Influenza Type A (PCR) Influenza Type B (PCR) RSV RNA Qual (PCR) SARS-CoV-2 RNA (RT-PCR) Assessment and Plan (1) Frostbite: Status: Acute (2) Rhabdomyolysis: Status: Acute (3) Stress-induced cardiomyopathy: Status: Acute (4) NSTEMI (non-ST elevated myocardial infarction): Status: Acute (5) Hypothermia: Status: Acute (6) Respiratory syncytial virus (RSV): Status: Acute Plan 89-year-old female with history of [id number] type 2 diabetes, hypertension, paroxysmal atrial fibrillation not on anticoagulation, and chronic low back pain admitted for environmental hypothermia with frostbite and secondary rhabdo and NSTEMI with probable stress induced cardiomyopathy. #Enviromental hypothermia-resolved -patient sitting in ground outside unable to get up for 5-6 hours. Rewarmed with bear hugger -temperature has been stable ranging 97.5-100.2 for about 20 hours. Still intermittently tachycardic to 104, heart rate now 88 -VS q4h #Frostbite- ?stage II/III -Continue IVF -General surgery consult placed ?debridement -rewarming as above # acute hypoxemic respiratory failure-resolved -most likely secondary to stress-induced cardiomyopathy/NSTEMI -less likely secondary to RSV given absence of chronic lung disease -chest CT negative for any focal consolidation or acute intra pulmonary abnormality #NSTEMI/Stress-induced cardiomyopathy -secondary to hypothermia/muscle breakdown -Trop continues to elevate, now >3600 -EKG showing sinus tach, rate [address]/T-wave abnormalities, no TRISTIN -cardiology input appreciated -continue heparin per protocol initiated per Cardiology x48-72 hours -Add asa, high intensity statin, continue bb change to 25mg BID -echocardiogram results pending -serial troponins q.6h until peaked # rhabdomyolysis -CK still elevating, now 2202 related to muscle injury//breakdown -Renal function/elevtrolytes normal -continue aggressive IVF -Monitor strict I&O to monitor for fluid overload -Follow CK in the morning # RSV infection -Hypoxia resolved -Now with wheezing and rhonchi. CXR ordered and negative. No hx chronic lung disease -Albuterol prn q4h. Prednisone 40mg daily x 5 day, D1 -symptomatic management with Robitussin, Tessalon Perles, throat spray -contact precautions # [id number]-hsuxzacho type 2 diabetes -POC glucose -diabetic diet -Humalog on sliding scale -patient advised she can have her son bring in her Trulicity.? Will need to go through pharmacy # L5 compression fracture -age indeterminate, question new -pain well controlled # osteopenia -noted on lower extremity x-rays with new compression fracture L5 -continue vitamin-D -follow-up outpatient with PCP # hypertension -continue lisinopril and metoprolol # paroxysmal atrial fibrillation-rate controlled -not on anticoagulation due to history of lower GI bleed -continue metoprolol Tachycardia econdary to hypothermia with secondary stress-induced cardiomyopathy/NSTEMI causing hypoxia, not severe sepsis.? Leukocytosis reactive, not sepsis. Elevated lactic acid secondary to hypoxia and hypothermia, not severe sepsis DVT prophylaxis-on heparin protocol DNR/DNI Ongoing inpatient stay required for management of hypothermia with rhabdomyolysis and secondary NSTEMI/stress-induced cardiomyopathy requiring expert consultation and ongoing heparin drip per protocol as well as close monitoring of vital signs Quality Stroke Does the patient have a stroke diagnosis?: No VTE Prior VTE?: No VTE Risk Level:: Medical - moderate - high VTE Device Contraindication: Treatment Not Indicated VTE Drug Contraindication: N/A - Med Ordered
--- NOTE | 2022-04-10 08:58 | P.CONGS_ITS ---
History of Present Illness Consult details Consult date: 04/10/22 Narrative: 86-year-old female with cardiomyopathy, admitted yesterday via the ER because of hypothermia. She states that she went out yesterday to her back yard deck to unleash her dog. She says she was unable to get up after crouching down and down on the deck for several hours because she could not get any help. She says she was eventually able to crawl back to the house and call for help. In the ER, she was noted to be hypothermic with a temperature of 93.8.She had multiple areas of skin discoloration on her lower legs and knees deemed to be secondary to frostbite. She had also been noted to have rhabdomyolysis with elevated creatinine. She says she feels much better this morning. Review of Systems Constitutional: Constitutional: Denies chills and Denies fever(s) Cardiovascular: Cardiovascular: Denies chest pain, Denies dyspnea and Reports dyspnea on exertion Respiratory: Respiratory: Denies cough, Denies dyspnea and Reports dyspnea on exertion Gastrointestinal: Gastrointestinal: Denies hematochezia and Denies change in bowel habits Genitourinary: Genitourinary: Denies hematuria Musculoskeletal: Musculoskeletal: Reports back pain and Reports limited range of motion Neurologic: Denies focal weakness and Denies convulsions Psychiatric: Psychiatric: Denies depression and Denies mood swings PMFSH Past Medical History Medical History (Updated 04/12/22 @ 10:58 by TERESA Darling) Hypertension Paroxysmal atrial fibrillation Type 2 diabetes Family History Family History Father Pulmonary embolism Mother Dementia Surgical History Surgical History History of lumbar laminectomy Social History Social History Household Members: None Housing: House Do you presently have visiting nurse or other home services: Yes (Feet care, meals) Alcohol intake: never Patient Tobacco Use Status: Never used Tobacco Smoked in Last 30 Days: No Use of substances other than those prescribed or required for medical reasons: No Currently Displaying Signs/Symptoms of Drug Intoxication Withdrawal: No Have you been hit, kicked, punched, or otherwise hurt by someone within the past year? If so, by whom?: No Do you feel safe in your current relationship?: No Current Relationship Is there a partner from a previous relationship who is making you feel unsafe now?: No Are you made to feel afraid or neglected: No Advance Directives: No Do you have thoughts of harming others: None Do you have a plan to hurt others: No Plan Recently lost weight without trying: No How much weight loss: Not applicable Eating poorly because of decreased appetite: No Nutrition screen score: 0 Nutrition Risks: No Nutritional Risk Patient : No : No Poor oral hygiene: No service: No Meds Allergies Allergy/AdvReac Type Severity Reaction Status Date / Time atorvastatin [From Lipitor] AdvReac Joint Pain Verified 04/09/22 10:02 Active Medications: Current Medications Acetaminophen (Acetaminophen 325 Mg Tablet) 650 mg PO Q6H PRN PRN Reason: Pain, Mild (Pain Scale 1-3) Last Admin: 04/09/22 23:43 Dose: 650 mg Albuterol Sulfate (Albuterol Sulfate (0.083%) 2.5 Mg/3 Ml Vial.Neb) 2.5 mg INHALE Q4H PRN PRN Reason: Wheezing Benzonatate (Benzonatate 100 Mg Capsule) 100 mg PO TID PRN PRN Reason: Cough Last Admin: 04/10/22 08:30 Dose: 100 mg Dextrose (Dextrose 50 % 25 Gm/50 Ml Syringe) 25 gm IVPUSH Q15M PRN; Protocol PRN Reason: per Hypoglycemia Standing Ord. Glucose (Glucose Gel 15 Gm Gel..Gram.) 15 gm PO Q15M PRN; Protocol PRN Reason: per Hypoglycemia Standing Ord. Heparin Sodium (Porcine) (Heparin Sodium,Porcine 5,000 Unit/Ml Vial) 2,700 unit 40 unit/kg (2700 unit) IVPUSH PROTOCOL BOLUS PRN; Protocol PRN Reason: 40 unit/kg - Heparin Protocol Heparin Sodium (Porcine) (Heparin Sodium,Porcine 5,000 Unit/Ml Vial) 5,400 unit 80 unit/kg (5400 unit) IVPUSH PROTOCOL BOLUS PRN; Protocol PRN Reason: 80 unit/kg - Heparin Protocol Sodium Chloride (Ns) 1,000 mls @ 125 mls/hr IVCONT .Q8H TARIQ Last Admin: 04/10/22 06:55 Dose: 100 mls/hr Heparin Sodium/Sodium Chloride (Heparin Sodium,Porcine/1/2ns) 25,000 unit in 250 mls @ 0 mls/hr IVCONT .Q0M [facility]; Protocol Last Titration: 04/10/22 05:17 Dose: 8 units/kg/hr, 5.44 mls/hr Insulin Human Lispro (Insulin Lispro 100 Unit/Ml 3 Ml Vial) 0 unit SUBCUT QIDACHS [facility]; Protocol Last Admin: 04/10/22 08:30 Dose: 2 unit Lisinopril (Lisinopril 40 Mg Tablet) 40 mg PO DAILY [facility]; Protocol Last Admin: 04/10/22 08:30 Dose: 40 mg Metoprolol Succinate (Metoprolol Succinate Er 50 Mg Tab.Er.24h) 50 mg PO DAILY [facility]; Protocol Last Admin: 04/10/22 08:30 Dose: 50 mg Ondansetron HCl (Ondansetron Hcl 4 Mg/2 Ml Vial) 4 mg IVPUSH Q8H PRN PRN Reason: Nausea and Vomiting Pharmacy Consult (Consult Rx Perform Med Rec) 1 each MISCELLANE ONCE PRN PRN Reason: Consult order Pharmacy Consult (Consult Rx Perform Med Rec) 1 each MISCELLANE ONCE PRN PRN Reason: Consult order Prednisone (Prednisone 20 Mg Tablet) 40 mg PO DAILY [facility] Stop: 04/14/22 09:01 Sodium Chloride (0.9 % Sodium Chloride Flush 3 Ml Syringe) 3 ml IVFLUSH QSHIFT [facility] Last Admin: 04/10/22 08:31 Dose: 3 ml Vitamin D (Cholecalciferol (Vitamin D3) 10 Mcg Tablet) 10 mcg PO DAILY [facility] Last Admin: 04/10/22 08:30 Dose: 10 mcg Home Medications Medication Instructions Recorded Confirmed Last Taken Type cholecalciferol (vitamin D3) 10 10 mcg PO DAILY 04/09/22 04/09/22 Unknown History mcg (400 unit) capsule dulaglutide 0.75 mg/0.5 mL 0.75 mg subcut TU@1000 04/09/22 04/09/22 04/02/22 History subcutaneous pen injector (Trulicity) lisinopril 40 mg tablet 40 mg PO DAILY 04/09/22 04/09/22 Unknown History metoprolol succinate 50 mg 50 mg PO DAILY 04/09/22 04/09/22 Unknown History tablet,extended release 24 hr Physical Exam Vital Signs: Vital Signs: Last Vital Signs Temp 97.5 F 04/10/22 07:42 Pulse 88 04/10/22 07:42 Resp 20 04/10/22 07:42 BP 132/58 L 04/10/22 07:42 Pulse Ox 95 04/10/22 07:42 O2 Del Method 04/10/22 07:42 O2 Flow Rate 2 04/09/22 15:53 BMI result Body Mass Index 27.4 Const: Other: Morbidly obese General: comfortable and no acute distress Orientation/consciousness: patient oriented x3 Neck: Neck: Yes no lymphadenopathy Resp: Auscultation: clear to auscultation bilaterally Cardio: Rhythm: regular rhythm GI: Palpation (GI): Soft to palpation, nontender and no guarding Neuro: General: patient oriented x3 Extrem: Other: multiple areas of skin discoloration on the knees, lower legs dorsum of both feet, no ongoing gangrene, no induration, no fluctuance Results Labs Result diagrams: 04/12/22 06:21 04/12/22 06:21 Labs: Abnormal lab results 04/09/22 04/09/22 04/09/22 Range/Units 10:57 11:25 11:26 WBC 22.0 H (4.8-10.8) X10*3/uL RBC 3.66 L (4.20-5.50) X10*6/uL Hgb 10.9 L (12.0-16.0) g/dl Hct 34.5 L (37.0-47.0) % Neut % (Auto) (45-73) % Lymph % (Auto) (20-40) % Lymph # (Auto) (1.2-4.9) X10*3/uL Towns # (Auto) (0.1-1.2) X10*3/uL Abs Immat Gran (auto) (0.00-0.03) X10*3/uL Absolute Neuts (auto) (2.0-8.3) x10*3/uL Neutrophils % (Manual) 85 H (45-73) % Band Neutrophils % 10 H (3-5) % Lymphocytes % (Manual) 3 L (20-40) % Abs Neuts (Manual) 20.9 H (2.0-8.3) X10*3/uL Lymphocytes # (Manual) 0.7 L (1.2-4.9) X10*3/uL aPTT Heparin Protocol (53-77.9) SEC ABG pCO2 at Pt Temp (32-45) mmHg ABG HCO3 (22-26) mmol/L Potassium (3.3-5.1) mmol/L Carbon Dioxide (22-29) mmol/L Anion Gap (12-20) BUN (9-16) mg/dL POC Glucose 405 H* (60-115) mg/dL Random Glucose (60-115) mg/dL Lactic Acid 6.2 H* (0.5-2.0) mmol/L Lactic Acid F/U @ 2Hr (0.5-2.0) mmol/L Calcium (8.4-10.2) mg/dL AST (5-31) U/L Total Creatine Kinase (26-140) U/L Troponin I High Sens (<3.5-17.0) ng/L Total Protein (6.5-8.0) g/dL Urine Glucose (UA) (Negative) mg/dL Urine Blood (Negative) Urine RBC (0-2) /HPF RSV RNA Qual (PCR) (Negative) 04/09/22 04/09/22 04/09/22 Range/Units 11:26 11:26 12:16 WBC (4.8-10.8) X10*3/uL RBC (4.20-5.50) X10*6/uL Hgb (12.0-16.0) g/dl Hct (37.0-47.0) % Neut % (Auto) (45-73) % Lymph % (Auto) (20-40) % Lymph # (Auto) (1.2-4.9) X10*3/uL Towns # (Auto) (0.1-1.2) X10*3/uL Abs Immat Gran (auto) (0.00-0.03) X10*3/uL Absolute Neuts (auto) (2.0-8.3) x10*3/uL Neutrophils % (Manual) (45-73) % Band Neutrophils % (3-5) % Lymphocytes % (Manual) (20-40) % Abs Neuts (Manual) (2.0-8.3) X10*3/uL Lymphocytes # (Manual) (1.2-4.9) X10*3/uL aPTT Heparin Protocol (53-77.9) SEC ABG pCO2 at Pt Temp (32-45) mmHg ABG HCO3 (22-26) mmol/L Potassium 5.4 H (3.3-5.1) mmol/L Carbon Dioxide 21 L (22-29) mmol/L Anion Gap 21 H (12-20) BUN 38 H (9-16) mg/dL POC Glucose (60-115) mg/dL Random Glucose 461 H* (60-115) mg/dL Lactic Acid (0.5-2.0) mmol/L Lactic Acid F/U @ 2Hr (0.5-2.0) mmol/L Calcium (8.4-10.2) mg/dL AST 32 H (5-31) U/L Total Creatine Kinase 623 H (26-140) U/L Troponin I High Sens 463.7 H* (<3.5-17.0) ng/L Total Protein 6.2 L (6.5-8.0) g/dL Urine Glucose (UA) 500 H (Negative) mg/dL Urine Blood Small (1+) H (Negative) Urine RBC 3-5 H (0-2) /HPF RSV RNA Qual (PCR) (Negative) 04/09/22 04/09/22 04/09/22 Range/Units 12:17 13:44 14:50 WBC (4.8-10.8) X10*3/uL RBC (4.20-5.50) X10*6/uL Hgb (12.0-16.0) g/dl Hct (37.0-47.0) % Neut % (Auto) (45-73) % Lymph % (Auto) (20-40) % Lymph # (Auto) (1.2-4.9) X10*3/uL Towns # (Auto) (0.1-1.2) X10*3/uL Abs Immat Gran (auto) (0.00-0.03) X10*3/uL Absolute Neuts (auto) (2.0-8.3) x10*3/uL Neutrophils % (Manual) (45-73) % Band Neutrophils % (3-5) % Lymphocytes % (Manual) (20-40) % Abs Neuts (Manual) (2.0-8.3) X10*3/uL Lymphocytes # (Manual) (1.2-4.9) X10*3/uL aPTT Heparin Protocol (53-77.9) SEC ABG pCO2 at Pt Temp 28 L (32-45) mmHg ABG HCO3 16 L (22-26) mmol/L Potassium (3.3-5.1) mmol/L Carbon Dioxide (22-29) mmol/L Anion Gap (12-20) BUN (9-16) mg/dL POC Glucose (60-115) mg/dL Random Glucose (60-115) mg/dL Lactic Acid (0.5-2.0) mmol/L Lactic Acid F/U @ 2Hr 2.4 H* (0.5-2.0) mmol/L Calcium (8.4-10.2) mg/dL AST (5-31) U/L Total Creatine Kinase (26-140) U/L Troponin I High Sens (<3.5-17.0) ng/L Total Protein (6.5-8.0) g/dL Urine Glucose (UA) (Negative) mg/dL Urine Blood (Negative) Urine RBC (0-2) /HPF RSV RNA Qual (PCR) POSITIVE A (Negative) 04/09/22 04/09/22 04/09/22 Range/Units 17:19 17:19 17:28 WBC (4.8-10.8) X10*3/uL RBC (4.20-5.50) X10*6/uL Hgb (12.0-16.0) g/dl Hct (37.0-47.0) % Neut % (Auto) (45-73) % Lymph % (Auto) (20-40) % Lymph # (Auto) (1.2-4.9) X10*3/uL Towns # (Auto) (0.1-1.2) X10*3/uL Abs Immat Gran (auto) (0.00-0.03) X10*3/uL Absolute Neuts (auto) (2.0-8.3) x10*3/uL Neutrophils % (Manual) (45-73) % Band Neutrophils % (3-5) % Lymphocytes % (Manual) (20-40) % Abs Neuts (Manual) (2.0-8.3) X10*3/uL Lymphocytes # (Manual) (1.2-4.9) X10*3/uL aPTT Heparin Protocol (53-77.9) SEC ABG pCO2 at Pt Temp (32-45) mmHg ABG HCO3 (22-26) mmol/L Potassium (3.3-5.1) mmol/L Carbon Dioxide 20 L (22-29) mmol/L Anion Gap (12-20) BUN 36 H (9-16) mg/dL POC Glucose 283 H (60-115) mg/dL Random Glucose 305 H (60-115) mg/dL Lactic Acid (0.5-2.0) mmol/L Lactic Acid F/U @ 2Hr (0.5-2.0) mmol/L Calcium (8.4-10.2) mg/dL AST (5-31) U/L Total Creatine Kinase 1346 H (26-140) U/L Troponin I High Sens 2341.4 H* (<3.5-17.0) ng/L Total Protein (6.5-8.0) g/dL Urine Glucose (UA) (Negative) mg/dL Urine Blood (Negative) Urine RBC (0-2) /HPF RSV RNA Qual (PCR) (Negative) 04/09/22 04/09/22 04/09/22 Range/Units 19:03 21:16 23:47 WBC (4.8-10.8) X10*3/uL RBC (4.20-5.50) X10*6/uL Hgb (12.0-16.0) g/dl Hct (37.0-47.0) % Neut % (Auto) (45-73) % Lymph % (Auto) (20-40) % Lymph # (Auto) (1.2-4.9) X10*3/uL Towns # (Auto) (0.1-1.2) X10*3/uL Abs Immat Gran (auto) (0.00-0.03) X10*3/uL Absolute Neuts (auto) (2.0-8.3) x10*3/uL Neutrophils % (Manual) (45-73) % Band Neutrophils % (3-5) % Lymphocytes % (Manual) (20-40) % Abs Neuts (Manual) (2.0-8.3) X10*3/uL Lymphocytes # (Manual) (1.2-4.9) X10*3/uL aPTT Heparin Protocol 27.7 L (53-77.9) SEC ABG pCO2 at Pt Temp (32-45) mmHg ABG HCO3 (22-26) mmol/L Potassium (3.3-5.1) mmol/L Carbon Dioxide (22-29) mmol/L Anion Gap (12-20) BUN (9-16) mg/dL POC Glucose 268 H 239 H (60-115) mg/dL Random Glucose (60-115) mg/dL Lactic Acid (0.5-2.0) mmol/L Lactic Acid F/U @ 2Hr (0.5-2.0) mmol/L Calcium (8.4-10.2) mg/dL AST (5-31) U/L Total Creatine Kinase (26-140) U/L Troponin I High Sens (<3.5-17.0) ng/L Total Protein (6.5-8.0) g/dL Urine Glucose (UA) (Negative) mg/dL Urine Blood (Negative) Urine RBC (0-2) /HPF RSV RNA Qual (PCR) (Negative) 04/10/22 04/10/22 04/10/22 Range/Units 02:05 02:05 04:34 WBC 18.8 H (4.8-10.8) X10*3/uL RBC 3.31 L (4.20-5.50) X10*6/uL Hgb 9.8 L (12.0-16.0) g/dl Hct 30.6 L (37.0-47.0) % Neut % (Auto) 86.5 H (45-73) % Lymph % (Auto) 4.9 L (20-40) % Lymph # (Auto) 0.9 L (1.2-4.9) X10*3/uL Towns # (Auto) 1.5 H (0.1-1.2) X10*3/uL Abs Immat Gran (auto) 0.06 H (0.00-0.03) X10*3/uL Absolute Neuts (auto) 16.3 H (2.0-8.3) x10*3/uL Neutrophils % (Manual) (45-73) % Band Neutrophils % (3-5) % Lymphocytes % (Manual) (20-40) % Abs Neuts (Manual) (2.0-8.3) X10*3/uL Lymphocytes # (Manual) (1.2-4.9) X10*3/uL aPTT Heparin Protocol 151.3 H* D (53-77.9) SEC ABG pCO2 at Pt Temp (32-45) mmHg ABG HCO3 (22-26) mmol/L Potassium (3.3-5.1) mmol/L Carbon Dioxide (22-29) mmol/L Anion Gap (12-20) BUN (9-16) mg/dL POC Glucose (60-115) mg/dL Random Glucose (60-115) mg/dL Lactic Acid (0.5-2.0) mmol/L Lactic Acid F/U @ 2Hr (0.5-2.0) mmol/L Calcium (8.4-10.2) mg/dL AST (5-31) U/L Total Creatine Kinase (26-140) U/L Troponin I High Sens 3513.6 H* D (<3.5-17.0) ng/L Total Protein (6.5-8.0) g/dL Urine Glucose (UA) (Negative) mg/dL Urine Blood (Negative) Urine RBC (0-2) /HPF RSV RNA Qual (PCR) (Negative) 04/10/22 04/10/22 04/10/22 Range/Units 04:34 04:34 07:14 WBC (4.8-10.8) X10*3/uL RBC (4.20-5.50) X10*6/uL Hgb (12.0-16.0) g/dl Hct (37.0-47.0) % Neut % (Auto) (45-73) % Lymph % (Auto) (20-40) % Lymph # (Auto) (1.2-4.9) X10*3/uL Towns # (Auto) (0.1-1.2) X10*3/uL Abs Immat Gran (auto) (0.00-0.03) X10*3/uL Absolute Neuts (auto) (2.0-8.3) x10*3/uL Neutrophils % (Manual) (45-73) % Band Neutrophils % (3-5) % Lymphocytes % (Manual) (20-40) % Abs Neuts (Manual) (2.0-8.3) X10*3/uL Lymphocytes # (Manual) (1.2-4.9) X10*3/uL aPTT Heparin Protocol (53-77.9) SEC ABG pCO2 at Pt Temp (32-45) mmHg ABG HCO3 (22-26) mmol/L Potassium (3.3-5.1) mmol/L Carbon Dioxide 17 L (22-29) mmol/L Anion Gap (12-20) BUN 37 H (9-16) mg/dL POC Glucose 171 H (60-115) mg/dL Random Glucose 208 H (60-115) mg/dL Lactic Acid (0.5-2.0) mmol/L Lactic Acid F/U @ 2Hr (0.5-2.0) mmol/L Calcium 8.1 L D (8.4-10.2) mg/dL AST (5-31) U/L Total Creatine Kinase 2203 H (26-140) U/L Troponin I High Sens > 3600.0 H* (<3.5-17.0) ng/L Total Protein (6.5-8.0) g/dL Urine Glucose (UA) (Negative) mg/dL Urine Blood (Negative) Urine RBC (0-2) /HPF RSV RNA Qual (PCR) (Negative) Short CBC 04/09/22 04/10/22 Range/Units 11: 04:34 WBC 22.0 H 18.8 H (4.8-10.8) X10*3/uL Hgb 10.9 L 9.8 L (12.0-16.0) g/dl Hct 34.5 L 30.6 L (37.0-47.0) % Plt Count 294 270 (160-400) X10*3/uL BMP 04/09/22 04/09/22 04/10/22 11: 17:19 04:34 Sodium 138 139 139 Potassium 5.4 H 4.9 4.3 Chloride 101 106 108 Carbon Dioxide 21 L 20 L 17 L BUN 38 H 36 H 37 H Creatinine 1.39 1.21 1.07 Calcium 9.0 8.7 8.1 L D Cardiac Enzymes 04/09/22 04/09/22 04/09/22 Range/Units 11:26 16:35 17:19 Total Creatine Kinase 623 H Cancelled 1346 H (26-140) U/L 04/10/22 Range/Units 04:34 Total Creatine Kinase 2203 H (26-140) U/L Liver Function 04/09/22 Range/Units 11:26 Total Bilirubin 0.7 (0.0-1.0) mg/dL Direct Bilirubin 0.4 (0.0-0.5) mg/dL AST 32 H (5-31) U/L ALT 20 (0-31) U/L Alkaline Phosphatase 70 (39-117) U/L Albumin 3.7 (3.5-5.0) g/dL Urine 04/09/22 Range/Units 12:16 Urine Color Yellow Urine Appearance Clear Urine pH 5.5 (5.0-9.0) Ur Specific [place] 1.025 (1.005-1.025) Urine Protein Trace (Neg-Trace) mg/dL Urine Glucose (UA) 500 H (Negative) mg/dL All other labs normal. Assessment and Plan (1) Frostbite: Status: Acute She has multiple areas of patchy skin discoloration on both lower extremities likely from frostbite. These do not appear to be gangrenous. These also appear to be superficial. It does not seem that she will require debridement at this time. We will allow these areas to slough off on its own. I will follow along while she is in the hospital. She appears comfortable and is conversant. She does state that she overall feels much improved compared to yesterday. She denies significant pain on the joseph bitten areas. Procedures Date of Service Date of Service: 04/10/22
--- NOTE | 2022-04-10 10:26 | MHC.CM.PN ---
pt lives alone has servcies thru [facility] which include homemaker,mow and lifel;ine pt is covid vax x 3 has a ride home
--- NOTE | 2022-04-10 11:02 | PM.CNCAR ---
History of Present Illness History of Present Illness Date of Service: 04/10/22 Requesting physician: Zulay Mcloed Consult reason: other (NSTEMI) Chief complaint: rhabdo, frostbite Narrative: I was consulted to see Lynda in cardiology consultation today for elevated troponins. Patient is 86-year-old female with prior history of hypertension and says recently diagnosed hyperlipidemia also on Trulicity so has a diagnosis of diabetes. Patient was in usual state of health yesterday and went out to let her dog out for a walk and bent over to put the changed to get a. She then gone suddenly weak and felt that she had to sit down she said down and was not able to get up and she was outside for long period time. She then finally manage herself to get inside the house and then called 911 came here was noted to be hypothermic with evidence of mild rhabdo. Throughout the entire process she did not have any episodes of chest discomfort. She says she was not feeling well says today before not able to further elucidate her symptoms but was going to see her primary care physician tomorrow. She had no cough no fever no chills no wheezing. Denies any shortness of breath, lightheadedness, syncope. Denies any palpitations or rapid heart rate. When she came to the hospital her troponin was initially mildly elevated and subsequently continued to rise and currently is greater than 3600. She continues to have no symptoms of chest pain. On presentation she was tachycardic. She was also treated with hypothermia and gradually warmed up. She has been diagnosed with RSV infection. Review of Systems Constitutional: Constitutional: Denies chills, Denies fatigue, Denies fever(s), Reports malaise and Reports weakness Eyes: Eyes: Reports no additional eye complaints Cardiovascular: Cardiovascular: Reports no additional cardiovascular complaints Respiratory: Respiratory: Reports no additional respiratory complaints Gastrointestinal: Gastrointestinal: Reports no additional gastrointestinal complaints Genitourinary: Genitourinary: Reports no additional female genitourinary complaints Musculoskeletal: Musculoskeletal: Reports no additional musculoskeletal complaints Integumentary/Breasts: Skin/Breast: Reports system reviewed and no additional complaints, except as docu Neurologic: Reports system reviewed and no additional complaints, except as documented and Reports weakness Psychiatric: Psychiatric: Reports no additional psychiatric complaints Endocrine: Endocrine: Reports no additional endocrine complaints and Denies fatigue Hematologic/Lymphatic: Hematologic/Lymphatic: Reports no additional hematologic/lymphatic complaints Allergic/Immunologic: Allergic/Immunologic: Reports no additional allergic/immunologic complaints [facility] Past Medical History Medical History Hypertension Paroxysmal atrial fibrillation Type 2 diabetes Family History Family History Father Pulmonary embolism Mother Dementia Surgical History Surgical History History of lumbar laminectomy Social History Social History Household Members: None Housing: House Do you presently have visiting nurse or other home services: Yes (Feet care, meals) Alcohol intake: never Patient Tobacco Use Status: Never used Tobacco Smoked in Last 30 Days: No Use of substances other than those prescribed or required for medical reasons: No Currently Displaying Signs/Symptoms of Drug Intoxication Withdrawal: No Have you been hit, kicked, punched, or otherwise hurt by someone within the past year? If so, by whom?: No Do you feel safe in your current relationship?: No Current Relationship Is there a partner from a previous relationship who is making you feel unsafe now?: No Are you made to feel afraid or neglected: No Advance Directives: No Do you have thoughts of harming others: None Do you have a plan to hurt others: No Plan Recently lost weight without trying: No How much weight loss: Not applicable Eating poorly because of decreased appetite: No Nutrition screen score: 0 Nutrition Risks: No Nutritional Risk Patient : No : No Poor oral hygiene: No Meds Allergies Allergy/AdvReac Type Severity Reaction Status Date / Time atorvastatin [From Lipitor] AdvReac Joint Pain Verified 04/09/22 10:02 Active Medications: Current Medications Acetaminophen (Acetaminophen 325 Mg Tablet) 650 mg PO Q6H PRN PRN Reason: Pain, Mild (Pain Scale 1-3) Last Admin: 04/09/22 23:43 Dose: 650 mg Albuterol Sulfate (Albuterol Sulfate (0.083%) 2.5 Mg/3 Ml Vial.Neb) 2.5 mg INHALE Q4H PRN PRN Reason: Wheezing Benzonatate (Benzonatate 100 Mg Capsule) 100 mg PO TID PRN PRN Reason: Cough Last Admin: 04/10/22 08:30 Dose: 100 mg Dextrose (Dextrose 50 % 25 Gm/50 Ml Syringe) 25 gm IVPUSH Q15M PRN; Protocol PRN Reason: per Hypoglycemia Standing Ord. Glucose (Glucose Gel 15 Gm Gel..Gram.) 15 gm PO Q15M PRN; Protocol PRN Reason: per Hypoglycemia Standing Ord. Heparin Sodium (Porcine) (Heparin Sodium,Porcine 5,000 Unit/Ml Vial) 2,700 unit 40 unit/kg (2700 unit) IVPUSH PROTOCOL BOLUS PRN; Protocol PRN Reason: 40 unit/kg - Heparin Protocol Heparin Sodium (Porcine) (Heparin Sodium,Porcine 5,000 Unit/Ml Vial) 5,400 unit 80 unit/kg (5400 unit) IVPUSH PROTOCOL BOLUS PRN; Protocol PRN Reason: 80 unit/kg - Heparin Protocol Sodium Chloride (Ns) 1,000 mls @ 125 mls/hr IVCONT .Q8H [facility] Last Admin: 04/10/22 06:55 Dose: 100 mls/hr Heparin Sodium/Sodium Chloride (Heparin Sodium,Porcine/1/2ns) 25,000 unit in 250 mls @ 0 mls/hr IVCONT .Q0M [facility]; Protocol Last Titration: 04/10/22 05:17 Dose: 8 units/kg/hr, 5.44 mls/hr Insulin Human Lispro (Insulin Lispro 100 Unit/Ml 3 Ml Vial) 0 unit SUBCUT QIDACHS [facility]; Protocol Last Admin: 04/10/22 08:30 Dose: 2 unit Lisinopril (Lisinopril 40 Mg Tablet) 40 mg PO DAILY [facility]; Protocol Last Admin: 04/10/22 08:30 Dose: 40 mg Metoprolol Succinate (Metoprolol Succinate Er 50 Mg Tab.Er.24h) 50 mg PO DAILY [facility]; Protocol Last Admin: 04/10/22 08:30 Dose: 50 mg Nystatin (Nystatin Powder 15 Gm Bottle) 1 appl TOPICAL BID [facility]; Protocol Ondansetron HCl (Ondansetron Hcl 4 Mg/2 Ml Vial) 4 mg IVPUSH Q8H PRN PRN Reason: Nausea and Vomiting Pharmacy Consult (Consult Rx Perform Med Rec) 1 each MISCELLANE ONCE PRN PRN Reason: Consult order Pharmacy Consult (Consult Rx Perform Med Rec) 1 each MISCELLANE ONCE PRN PRN Reason: Consult order Prednisone (Prednisone 20 Mg Tablet) 40 mg PO DAILY [facility] Stop: 04/14/22 09:01 Sodium Chloride (0.9 % Sodium Chloride Flush 3 Ml Syringe) 3 ml IVFLUSH QSHIFT [facility] Last Admin: 04/10/22 08:31 Dose: 3 ml Vitamin D (Cholecalciferol (Vitamin D3) 10 Mcg Tablet) 10 mcg PO DAILY [facility] Last Admin: 04/10/22 08:30 Dose: 10 mcg Home Medications Medication Instructions Recorded Confirmed Last Taken Type cholecalciferol (vitamin D3) 10 10 mcg PO DAILY 04/09/22 04/09/22 Unknown History mcg (400 unit) capsule dulaglutide 0.75 mg/0.5 mL 0.75 mg subcut TU@1000 04/09/22 04/09/22 04/02/22 History subcutaneous pen injector (Trulicity) lisinopril 40 mg tablet 40 mg PO DAILY 04/09/22 04/09/22 Unknown History metoprolol succinate 50 mg 50 mg PO DAILY 04/09/22 04/09/22 Unknown History tablet,extended release 24 hr Physical Exam Vital Signs: Vital Signs: Last Vital Signs Temp 97.5 F 04/10/22 07:42 Pulse 88 04/10/22 09:02 Resp 20 04/10/22 07:42 BP 132/58 L 04/10/22 09:02 Pulse Ox 95 04/10/22 09:02 O2 Del Method 04/10/22 07:42 O2 Flow Rate 2 04/09/22 15:53 BMI result Body Mass Index 27.4 Const: General: cooperative, comfortable, no acute distress, well developed, alert, awake and anxious Nutritional Appearance: overweight Orientation/consciousness: patient oriented x3 Limitations: no limitations HEENT: Head: Yes normocephalic and Yes atraumatic Neck: Neck: Yes trachea midline, Yes supple and Yes no JVD Chest: Chest palpation & inspection: normal inspection of the chest Resp: Effort & Inspection: normal respiratory effort Auscultation: other (Coarse breath sounds at both bases) Cardio: Jugular venous distension: no JVD Palpation: normal PMI Rate: regular rate Rhythm: regular rhythm Heart sounds: S1 normal heart sound present, S2 normal heart sound present, no click, no gallops and no murmurs GI: Auscultation: normal bowel sounds Skin: General skin exam: ecchymosis and Excoriation Neuro: General: patient oriented x3 and no focal motor deficits Extrem: General: Yes no clubbing, cyanosis or edema Psych: Appearance: grossly normal Objective Labs and Meds Result diagrams: 04/10/22 04:34 04/10/22 04:34 Lab results: Laboratory Results - last 24 hr 04/09/22 04/09/22 04/09/22 10:57 11:25 11:26 WBC 22.0 H RBC 3.66 L Hgb 10.9 L Hct 34.5 L MCV 94.3 MCH 29.8 MCHC 31.6 RDW 13.1 Plt Count 294 MPV 10.3 Immature Gran % (Auto) Cancelled Neut % (Auto) Cancelled Lymph % (Auto) Cancelled [place] % (Auto) Cancelled Eos % (Auto) Cancelled Baso % (Auto) Cancelled Lymph # (Auto) Cancelled [place] # (Auto) Cancelled Eos # (Auto) Cancelled Baso # (Auto) Cancelled Abs Immat Gran (auto) Cancelled Absolute Neuts (auto) Cancelled Absolute Nucleated RBC 0.000 Nucleated RBC % (auto) 0.0 Neutrophils % (Manual) 85 H Band Neutrophils % 10 H Lymphocytes % (Manual) 3 L Monocytes % (Manual) 2 Abs Neuts (Manual) 20.9 H Lymphocytes # (Manual) 0.7 L Monocytes # (Manual) 0.4 Platelet Estimate NORMAL Plt Morphology Comment NORMAL RBC Morphology NOTED Hypochromasia 1+ (5-14) PT INR aPTT Heparin Protocol O2 Saturation ABG pH at Pt Temp ABG pCO2 at Pt Temp ABG pO2 at Pt Temp ABG HCO3 ABG Base Excess (Actual) Sodium Potassium Chloride Carbon Dioxide Anion Gap BUN Creatinine Estim Creat Clear Calc Estimated GFR POC Glucose 405 H* Random Glucose Lactic Acid 6.2 H* Lactic Acid F/U @ 2Hr Lactic Acid F/U @ 4Hr Calcium Total Bilirubin Direct Bilirubin AST ALT Alkaline Phosphatase Total Creatine Kinase Troponin I High Sens Total Protein Albumin Lipase TSH Urine Color Urine Appearance Urine pH Ur Specific [place] Urine Protein Urine Glucose (UA) Urine Ketones Urine Blood Urine Nitrite Ur Leukocyte Esterase Urine RBC Urine WBC Ur Squamous Epith Cells Urine Bacteria Hyaline Casts Urine Opiates Screen Urine Fentanyl Screen Ur Barbiturates Screen Ur Phencyclidine Scrn Ur Amphetamines Screen U Benzodiazepines Scrn Urine Cocaine Screen U Marijuana (THC) Screen Influenza Type A (PCR) Influenza Type B (PCR) RSV RNA Qual (PCR) SARS-CoV-2 RNA (RT-PCR) 04/09/22 04/09/22 04/09/22 11:26 11:26 12:16 WBC RBC Hgb Hct MCV MCH MCHC RDW Plt Count MPV Immature Gran % (Auto) Neut % (Auto) Lymph % (Auto) [place] % (Auto) Eos % (Auto) Baso % (Auto) Lymph # (Auto) [place] # (Auto) Eos # (Auto) Baso # (Auto) Abs Immat Gran (auto) Absolute Neuts (auto) Absolute Nucleated RBC Nucleated RBC % (auto) Neutrophils % (Manual) Band Neutrophils % Lymphocytes % (Manual) Monocytes % (Manual) Abs Neuts (Manual) Lymphocytes # (Manual) Monocytes # (Manual) Platelet Estimate Plt Morphology Comment RBC Morphology Hypochromasia PT INR aPTT Heparin Protocol O2 Saturation ABG pH at Pt Temp ABG pCO2 at Pt Temp ABG pO2 at Pt Temp ABG HCO3 ABG Base Excess (Actual) Sodium 138 Potassium 5.4 H Chloride 101 Carbon Dioxide 21 L Anion Gap 21 H BUN 38 H Creatinine 1.39 Estim Creat Clear Calc 27.2 Estimated GFR 36 POC Glucose Random Glucose 461 H* Lactic Acid Lactic Acid F/U @ 2Hr Lactic Acid F/U @ 4Hr Calcium 9.0 Total Bilirubin 0.7 Direct Bilirubin 0.4 AST 32 H ALT 20 Alkaline Phosphatase 70 Total Creatine Kinase 623 H Troponin I High Sens 463.7 H* Total Protein 6.2 L Albumin 3.7 Lipase 21 TSH 1.61 Urine Color Yellow Urine Appearance Clear Urine pH 5.5 Ur Specific [place] 1.025 Urine Protein Trace Urine Glucose (UA) 500 H Urine Ketones Trace Urine Blood Small (1+) H Urine Nitrite Negative Ur Leukocyte Esterase Negative Urine RBC 3-5 H Urine WBC 0-5 Ur Squamous Epith Cells 0-2 Urine Bacteria Trace Hyaline Casts 0-2 Urine Opiates Screen Urine Fentanyl Screen Ur Barbiturates Screen Ur Phencyclidine Scrn Ur Amphetamines Screen U Benzodiazepines Scrn Urine Cocaine Screen U Marijuana (THC) Screen Influenza Type A (PCR) Influenza Type B (PCR) RSV RNA Qual (PCR) SARS-CoV-2 RNA (RT-PCR) 04/09/22 04/09/22 04/09/22 12:16 12:17 13:44 WBC RBC Hgb Hct MCV MCH MCHC RDW Plt Count MPV Immature Gran % (Auto) Neut % (Auto) Lymph % (Auto) [place] % (Auto) Eos % (Auto) Baso % (Auto) Lymph # (Auto) [place] # (Auto) Eos # (Auto) Baso # (Auto) Abs Immat Gran (auto) Absolute Neuts (auto) Absolute Nucleated RBC Nucleated RBC % (auto) Neutrophils % (Manual) Band Neutrophils % Lymphocytes % (Manual) Monocytes % (Manual) Abs Neuts (Manual) Lymphocytes # (Manual) Monocytes # (Manual) Platelet Estimate Plt Morphology Comment RBC Morphology Hypochromasia PT INR aPTT Heparin Protocol O2 Saturation 98.0 ABG pH at Pt Temp 7.37 ABG pCO2 at Pt Temp 28 L ABG pO2 at Pt Temp 94 ABG HCO3 16 L ABG Base Excess (Actual) -7.1 Sodium Potassium Chloride Carbon Dioxide Anion Gap BUN Creatinine Estim Creat Clear Calc Estimated GFR POC Glucose Random Glucose Lactic Acid Lactic Acid F/U @ 2Hr 2.4 H* Lactic Acid F/U @ 4Hr Calcium Total Bilirubin Direct Bilirubin AST ALT Alkaline Phosphatase Total Creatine Kinase Troponin I High Sens Total Protein Albumin Lipase TSH Urine Color Urine Appearance Urine pH Ur Specific [place] Urine Protein Urine Glucose (UA) Urine Ketones Urine Blood Urine Nitrite Ur Leukocyte Esterase Urine RBC Urine WBC Ur Squamous Epith Cells Urine Bacteria Hyaline Casts Urine Opiates Screen Not Detected Urine Fentanyl Screen Not Detected Ur Barbiturates Screen Not Detected Ur Phencyclidine Scrn Not Detected Ur Amphetamines Screen Not Detected U Benzodiazepines Scrn Not Detected Urine Cocaine Screen Not Detected U Marijuana (THC) Screen Not Detected Influenza Type A (PCR) Influenza Type B (PCR) RSV RNA Qual (PCR) SARS-CoV-2 RNA (RT-PCR) 04/09/22 04/09/22 04/09/22 14:50 16:12 16:35 WBC RBC Hgb Hct MCV MCH MCHC RDW Plt Count MPV Immature Gran % (Auto) Neut % (Auto) Lymph % (Auto) [place] % (Auto) Eos % (Auto) Baso % (Auto) Lymph # (Auto) [place] # (Auto) Eos # (Auto) Baso # (Auto) Abs Immat Gran (auto) Absolute Neuts (auto) Absolute Nucleated RBC Nucleated RBC % (auto) Neutrophils % (Manual) Band Neutrophils % Lymphocytes % (Manual) Monocytes % (Manual) Abs Neuts (Manual) Lymphocytes # (Manual) Monocytes # (Manual) Platelet Estimate Plt Morphology Comment RBC Morphology Hypochromasia PT INR aPTT Heparin Protocol O2 Saturation ABG pH at Pt Temp ABG pCO2 at Pt Temp ABG pO2 at Pt Temp ABG HCO3 ABG Base Excess (Actual) Sodium Potassium Chloride Carbon Dioxide Anion Gap BUN Creatinine Estim Creat Clear Calc Estimated GFR POC Glucose Random Glucose Lactic Acid Lactic Acid F/U @ 2Hr Lactic Acid F/U @ 4Hr 2.0 Calcium Total Bilirubin Direct Bilirubin AST ALT Alkaline Phosphatase Total Creatine Kinase Cancelled Troponin I High Sens Total Protein Albumin Lipase TSH Urine Color Urine Appearance Urine pH Ur Specific [place] Urine Protein Urine Glucose (UA) Urine Ketones Urine Blood Urine Nitrite Ur Leukocyte Esterase Urine RBC Urine WBC Ur Squamous Epith Cells Urine Bacteria Hyaline Casts Urine Opiates Screen Urine Fentanyl Screen Ur Barbiturates Screen Ur Phencyclidine Scrn Ur Amphetamines Screen U Benzodiazepines Scrn Urine Cocaine Screen U Marijuana (THC) Screen Influenza Type A (PCR) NEGATIVE Influenza Type B (PCR) NEGATIVE RSV RNA Qual (PCR) POSITIVE A SARS-CoV-2 RNA (RT-PCR) NEGATIVE 04/09/22 04/09/22 04/09/22 17:19 17:19 17:28 WBC RBC Hgb Hct MCV MCH MCHC RDW Plt Count MPV Immature Gran % (Auto) Neut % (Auto) Lymph % (Auto) [place] % (Auto) Eos % (Auto) Baso % (Auto) Lymph # (Auto) [place] # (Auto) Eos # (Auto) Baso # (Auto) Abs Immat Gran (auto) Absolute Neuts (auto) Absolute Nucleated RBC Nucleated RBC % (auto) Neutrophils % (Manual) Band Neutrophils % Lymphocytes % (Manual) Monocytes % (Manual) Abs Neuts (Manual) Lymphocytes # (Manual) Monocytes # (Manual) Platelet Estimate Plt Morphology Comment RBC Morphology Hypochromasia PT INR aPTT Heparin Protocol O2 Saturation ABG pH at Pt Temp ABG pCO2 at Pt Temp ABG pO2 at Pt Temp ABG HCO3 ABG Base Excess (Actual) Sodium 139 Potassium 4.9 Chloride 106 Carbon Dioxide 20 L Anion Gap 18 BUN 36 H Creatinine 1.21 Estim Creat Clear Calc 31.3 Estimated GFR 42 POC Glucose 283 H Random Glucose 305 H Lactic Acid Lactic Acid F/U @ 2Hr Lactic Acid F/U @ 4Hr Calcium 8.7 Total Bilirubin Direct Bilirubin AST ALT Alkaline Phosphatase Total Creatine Kinase 1346 H Troponin I High Sens 2341.4 H* Total Protein Albumin Lipase TSH Urine Color Urine Appearance Urine pH Ur Specific [place] Urine Protein Urine Glucose (UA) Urine Ketones Urine Blood Urine Nitrite Ur Leukocyte Esterase Urine RBC Urine WBC Ur Squamous Epith Cells Urine Bacteria Hyaline Casts Urine Opiates Screen Urine Fentanyl Screen Ur Barbiturates Screen Ur Phencyclidine Scrn Ur Amphetamines Screen U Benzodiazepines Scrn Urine Cocaine Screen U Marijuana (THC) Screen Influenza Type A (PCR) Influenza Type B (PCR) RSV RNA Qual (PCR) SARS-CoV-2 RNA (RT-PCR) 04/09/22 04/09/22 04/09/22 19:03 21:16 23:47 WBC RBC Hgb Hct MCV MCH MCHC RDW Plt Count MPV Immature Gran % (Auto) Neut % (Auto) Lymph % (Auto) [place] % (Auto) Eos % (Auto) Baso % (Auto) Lymph # (Auto) [place] # (Auto) Eos # (Auto) Baso # (Auto) Abs Immat Gran (auto) Absolute Neuts (auto) Absolute Nucleated RBC Nucleated RBC % (auto) Neutrophils % (Manual) Band Neutrophils % Lymphocytes % (Manual) Monocytes % (Manual) Abs Neuts (Manual) Lymphocytes # (Manual) Monocytes # (Manual) Platelet Estimate Plt Morphology Comment RBC Morphology Hypochromasia PT 11.9 INR 1.0 aPTT Heparin Protocol 27.7 L O2 Saturation ABG pH at Pt Temp ABG pCO2 at Pt Temp ABG pO2 at Pt Temp ABG HCO3 ABG Base Excess (Actual) Sodium Potassium Chloride Carbon Dioxide Anion Gap BUN Creatinine Estim Creat Clear Calc Estimated GFR POC Glucose 268 H 239 H Random Glucose Lactic Acid Lactic Acid F/U @ 2Hr Lactic Acid F/U @ 4Hr Calcium Total Bilirubin Direct Bilirubin AST ALT Alkaline Phosphatase Total Creatine Kinase Troponin I High Sens Total Protein Albumin Lipase TSH Urine Color Urine Appearance Urine pH Ur Specific [place] Urine Protein Urine Glucose (UA) Urine Ketones Urine Blood Urine Nitrite Ur Leukocyte Esterase Urine RBC Urine WBC Ur Squamous Epith Cells Urine Bacteria Hyaline Casts Urine Opiates Screen Urine Fentanyl Screen Ur Barbiturates Screen Ur Phencyclidine Scrn Ur Amphetamines Screen U Benzodiazepines Scrn Urine Cocaine Screen U Marijuana (THC) Screen Influenza Type A (PCR) Influenza Type B (PCR) RSV RNA Qual (PCR) SARS-CoV-2 RNA (RT-PCR) 04/10/22 04/10/22 04/10/22 02:05 02:05 04:34 WBC 18.8 H RBC 3.31 L Hgb 9.8 L Hct 30.6 L MCV 92.4 MCH 29.6 MCHC 32.0 RDW 13.3 Plt Count 270 MPV 10.7 Immature Gran % (Auto) 0.3 Neut % (Auto) 86.5 H Lymph % (Auto) 4.9 L [place] % (Auto) 8.0 Eos % (Auto) 0.1 Baso % (Auto) 0.2 Lymph # (Auto) 0.9 L [place] # (Auto) 1.5 H Eos # (Auto) 0.0 Baso # (Auto) 0.0 Abs Immat Gran (auto) 0.06 H Absolute Neuts (auto) 16.3 H Absolute Nucleated RBC 0.000 Nucleated RBC % (auto) 0.0 Neutrophils % (Manual) Band Neutrophils % Lymphocytes % (Manual) Monocytes % (Manual) Abs Neuts (Manual) Lymphocytes # (Manual) Monocytes # (Manual) Platelet Estimate Plt Morphology Comment RBC Morphology Hypochromasia PT INR aPTT Heparin Protocol 151.3 H* D O2 Saturation ABG pH at Pt Temp ABG pCO2 at Pt Temp ABG pO2 at Pt Temp ABG HCO3 ABG Base Excess (Actual) Sodium Potassium Chloride Carbon Dioxide Anion Gap BUN Creatinine Estim Creat Clear Calc Estimated GFR POC Glucose Random Glucose Lactic Acid Lactic Acid F/U @ 2Hr Lactic Acid F/U @ 4Hr Calcium Total Bilirubin Direct Bilirubin AST ALT Alkaline Phosphatase Total Creatine Kinase Troponin I High Sens 3513.6 H* D Total Protein Albumin Lipase TSH Urine Color Urine Appearance Urine pH Ur Specific [place] Urine Protein Urine Glucose (UA) Urine Ketones Urine Blood Urine Nitrite Ur Leukocyte Esterase Urine RBC Urine WBC Ur Squamous Epith Cells Urine Bacteria Hyaline Casts Urine Opiates Screen Urine Fentanyl Screen Ur Barbiturates Screen Ur Phencyclidine Scrn Ur Amphetamines Screen U Benzodiazepines Scrn Urine Cocaine Screen U Marijuana (THC) Screen Influenza Type A (PCR) Influenza Type B (PCR) RSV RNA Qual (PCR) SARS-CoV-2 RNA (RT-PCR) 04/10/22 04/10/22 04/10/22 04:34 04:34 04:34 WBC RBC Hgb Hct MCV MCH MCHC RDW Plt Count MPV Immature Gran % (Auto) Neut % (Auto) Lymph % (Auto) [place] % (Auto) Eos % (Auto) Baso % (Auto) Lymph # (Auto) [place] # (Auto) Eos # (Auto) Baso # (Auto) Abs Immat Gran (auto) Absolute Neuts (auto) Absolute Nucleated RBC Nucleated RBC % (auto) Neutrophils % (Manual) Band Neutrophils % Lymphocytes % (Manual) Monocytes % (Manual) Abs Neuts (Manual) Lymphocytes # (Manual) Monocytes # (Manual) Platelet Estimate Plt Morphology Comment RBC Morphology Hypochromasia PT 12.8 INR 1.1 aPTT Heparin Protocol O2 Saturation ABG pH at Pt Temp ABG pCO2 at Pt Temp ABG pO2 at Pt Temp ABG HCO3 ABG Base Excess (Actual) Sodium 139 Potassium 4.3 Chloride 108 Carbon Dioxide 17 L Anion Gap 18 BUN 37 H Creatinine 1.07 Estim Creat Clear Calc 35.4 Estimated GFR 49 POC Glucose Random Glucose 208 H Lactic Acid Lactic Acid F/U @ 2Hr Lactic Acid F/U @ 4Hr Calcium 8.1 L D Total Bilirubin Direct Bilirubin AST ALT Alkaline Phosphatase Total Creatine Kinase 2203 H Troponin I High Sens > 3600.0 H* Total Protein Albumin Lipase TSH Urine Color Urine Appearance Urine pH Ur Specific [place] Urine Protein Urine Glucose (UA) Urine Ketones Urine Blood Urine Nitrite Ur Leukocyte Esterase Urine RBC Urine WBC Ur Squamous Epith Cells Urine Bacteria Hyaline Casts Urine Opiates Screen Urine Fentanyl Screen Ur Barbiturates Screen Ur Phencyclidine Scrn Ur Amphetamines Screen U Benzodiazepines Scrn Urine Cocaine Screen U Marijuana (THC) Screen Influenza Type A (PCR) Influenza Type B (PCR) RSV RNA Qual (PCR) SARS-CoV-2 RNA (RT-PCR) 04/10/22 04/10/22 04:34 07:14 WBC RBC Hgb Hct MCV MCH MCHC RDW Plt Count MPV Immature Gran % (Auto) Neut % (Auto) Lymph % (Auto) [place] % (Auto) Eos % (Auto) Baso % (Auto) Lymph # (Auto) [place] # (Auto) Eos # (Auto) Baso # (Auto) Abs Immat Gran (auto) Absolute Neuts (auto) Absolute Nucleated RBC Nucleated RBC % (auto) Neutrophils % (Manual) Band Neutrophils % Lymphocytes % (Manual) Monocytes % (Manual) Abs Neuts (Manual) Lymphocytes # (Manual) Monocytes # (Manual) Platelet Estimate Plt Morphology Comment RBC Morphology Hypochromasia PT INR aPTT Heparin Protocol 71.7 D O2 Saturation ABG pH at Pt Temp ABG pCO2 at Pt Temp ABG pO2 at Pt Temp ABG HCO3 ABG Base Excess (Actual) Sodium Potassium Chloride Carbon Dioxide Anion Gap BUN Creatinine Estim Creat Clear Calc Estimated GFR POC Glucose 171 H Random Glucose Lactic Acid Lactic Acid F/U @ 2Hr Lactic Acid F/U @ 4Hr Calcium Total Bilirubin Direct Bilirubin AST ALT Alkaline Phosphatase Total Creatine Kinase Troponin I High Sens Total Protein Albumin Lipase TSH Urine Color Urine Appearance Urine pH Ur Specific [place] Urine Protein Urine Glucose (UA) Urine Ketones Urine Blood Urine Nitrite Ur Leukocyte Esterase Urine RBC Urine WBC Ur Squamous Epith Cells Urine Bacteria Hyaline Casts Urine Opiates Screen Urine Fentanyl Screen Ur Barbiturates Screen Ur Phencyclidine Scrn Ur Amphetamines Screen U Benzodiazepines Scrn Urine Cocaine Screen U Marijuana (THC) Screen Influenza Type A (PCR) Influenza Type B (PCR) RSV RNA Qual (PCR) SARS-CoV-2 RNA (RT-PCR) Imaging Radiologist's impression: Impressions Abdomen/Pelvis CT 04/09/22 12:57 IMPRESSION: Moderate L5 vertebral body compression fracture, question recent. Clinical correlation recommended. Postsurgical changes to the lower lumbar spine. No acute abdominal or pelvic findings. Constipation and diverticulosis. Fleischner guidelines were followed. Cervical Spine CT 04/09/22 12:57 IMPRESSION: No acute intracranial process seen. There is no visible acute fracture, dislocation or subluxation in cervical spine. Degenerative disc changes, spondylosis and facet joint arthropathy as described above. No lytic or sclerotic process seen. Chest CT 04/09/22 12:57 IMPRESSION: No evidence for acute disease in the chest. Fleischner guidelines were followed. Head CT 04/09/22 12:57 IMPRESSION: No acute intracranial process seen. There is no visible acute fracture, dislocation or subluxation in cervical spine. Degenerative disc changes, spondylosis and facet joint arthropathy as described above. No lytic or sclerotic process seen. Ankle X-Ray 04/09/22 13:12 IMPRESSION: Diffuse osteopenia in both lower extremities. There is no visible fracture involving either knee, ankle of the foot. 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 There is mild superior patellar spurring right knee. Mild degenerative changes both knee joints. Diffuse osteopenia bilateral foot and ankle. No visible acute fracture or dislocation or soft tissue swelling in either foot or ankle. Calcaneal heel enthesophyte bilateral foot. Ankle X-Ray 04/09/22 13:12 IMPRESSION: Diffuse osteopenia in both lower extremities. There is no visible fracture involving either knee, ankle of the foot. 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 There is mild superior patellar spurring right knee. Mild degenerative changes both knee joints. Diffuse osteopenia bilateral foot and ankle. No visible acute fracture or dislocation or soft tissue swelling in either foot or ankle. Calcaneal heel enthesophyte bilateral foot. Foot X-Ray 04/09/22 13:12 IMPRESSION: Diffuse osteopenia in both lower extremities. There is no visible fracture involving either knee, ankle of the foot. 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 There is mild superior patellar spurring right knee. Mild degenerative changes both knee joints. Diffuse osteopenia bilateral foot and ankle. No visible acute fracture or dislocation or soft tissue swelling in either foot or ankle. Calcaneal heel enthesophyte bilateral foot. Foot X-Ray 04/09/22 13:12 IMPRESSION: Diffuse osteopenia in both lower extremities. There is no visible fracture involving either knee, ankle of the foot. 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 There is mild superior patellar spurring right knee. Mild degenerative changes both knee joints. Diffuse osteopenia bilateral foot and ankle. No visible acute fracture or dislocation or soft tissue swelling in either foot or ankle. Calcaneal heel enthesophyte bilateral foot. Knee X-Ray 04/09/22 13:12 IMPRESSION: Diffuse osteopenia in both lower extremities. There is no visible fracture involving either knee, ankle of the foot. 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 There is mild superior patellar spurring right knee. Mild degenerative changes both knee joints. Diffuse osteopenia bilateral foot and ankle. No visible acute fracture or dislocation or soft tissue swelling in either foot or ankle. Calcaneal heel enthesophyte bilateral foot. Knee X-Ray 04/09/22 13:12 IMPRESSION: Diffuse osteopenia in both lower extremities. There is no visible fracture involving either knee, ankle of the foot. 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 There is mild superior patellar spurring right knee. Mild degenerative changes both knee joints. Diffuse osteopenia bilateral foot and ankle. No visible acute fracture or dislocation or soft tissue swelling in either foot or ankle. Calcaneal heel enthesophyte bilateral foot. Assessment and Plan (1) NSTEMI (non-ST elevated myocardial infarction): Status: Acute Patient presents with very atypical symptoms of generalized weakness which could be related to viral syndrome. Has rising troponin consistent with NSTEMI. Potential symptoms could represent primary ACS or could be also secondary stress-induced cardiomyopathy, less likely viral myocarditis. Strongly recommend echocardiogram to further assess for regional wall motion of need further treatment plan. Will repeat EKG today. Continue with IV heparin at least for 48-72 hours. Should be on aspirin as well as statins. Also start metoprolol 25 mg b.i.d.. Management was discussed with the patient. For now will pursue conservative management and await further results of echocardiogram to guide treatment. May require ischemic workup at some point in time. Will continue to follow with you. Procedures Date of Service Date of Service: 04/10/22
[2022-04-10 11:22] LABS: Glucose, Whole Blood 203 mg/dL (60-115)
[2022-04-10] MEDS: Aspirin Enteric Coated 81 MG TABLET.DR PO (12:37)
[2022-04-10] MEDS: predniSONE 20 MG TABLET 40 MG PO (12:37)
[2022-04-10] MEDS: Atorvastatin Calcium 80 MG TABLET PO (12:37)
[2022-04-10] MEDS: Nystatin Powder 15 GM BOTTLE 1 APPL TOPICAL ×2 (12:43→21:40)
[2022-04-10 12:48] LABS: PTT Heparin Drip 56.1 SEC (53-77.9)
[2022-04-10 16:26] LABS: Glucose, Whole Blood 174 mg/dL (60-115)
[2022-04-10 19:16] LABS: PTT Heparin Drip 52.5 SEC (53-77.9)
--- NOTE | 2022-04-10 19:22 | PC.NURSE ---
report received from RN, assumed care of pt at 1920.
[2022-04-10 20:22] LABS: Glucose, Whole Blood 241 mg/dL (60-115)
[2022-04-10] MEDS: Heparin Sodium,Porcine/1/2NS 25,000 UNIT/250 ML IV.SOLN 6.8 UNIT IVCONT (20:24)
[2022-04-10] MEDS: Heparin Sodium,Porcine 5,000 UNIT/ML VIAL 2700 UNIT IVPUSH (20:27)
[2022-04-11] MEDS: 0.9 % Sodium Chloride Flush 3 ML SYRINGE IVFLUSH ×2 (00:21→16:25)
[2022-04-11] MEDS: Acetaminophen 325 MG TABLET 650 MG PO ×3 (01:26→20:55)
[2022-04-11 01:37] LABS: PTT Heparin Drip 76.7 SEC (53-77.9)
[2022-04-11 03:19] VITALS: BP 136/61; PULSE 52; RESP 16; TEMP 36.1; O2SAT 95
[2022-04-11] MEDS: 0.9 % Sodium Chloride 1,000 ML 125 ML IVCONT (05:56)
--- NOTE | 2022-04-11 07:32 | HO.PM.IMPN ---
Subjective Subjective Date of Service: 04/11/22 Interval History: Seen in follow-up for environmental hypothermia with secondary NSTEMI/stress-induced cardiomyopathy and rhabdomyolysis Interval history: Resting comfortably, speaking with camp dining room attendant at bedside. Still coughing. Denies any paresthesias, weakness, shortness of breath, palpitations, lightheadedness, chest pain. Review of Systems General: No fevers, malaise, unintentional weight loss HEENT: +sore throat. No nasal congestion, rhinorrhea, sinus pain, ear pain Cardiovascular: No chest pain, palpitations, or leg edema Respiratory:Cough. No shortness of breath, wheezing GI: No abdominal pain, nausea, vomiting, diarrhea MSK: +myalgia. No back pain Neuro: No headaches, weakness, paresthesias Skin: No rashes or lesions Physical Exam Vital Signs: Vital Signs: Last Vital Signs Temp 96.9 F 04/11/22 03:19 Pulse 52 04/11/22 03:19 Resp 16 04/11/22 03:19 BP 136/61 04/11/22 03:19 Pulse Ox 95 04/11/22 03:19 O2 Del Method 04/11/22 03:19 O2 Flow Rate 2 04/09/22 15:53 BMI result Body Mass Index 27.4 Constitutional - Awake and Alert, No apparent distress Eyes - PERRLA, EOMI Cardiovascular - S1S2, RRR, No edema Respiratory - Normal lung expansion, Normal respiratory effort, No respiratory distress, CTA bilaterally Gastrointestinal - NT / ND; +BS; No rebound or guarding Extremities - no calf tenderness bilaterally, no swelling. Grade II/III frostbite on b/l knees, ankles, feet. Skin - Warm/Dry Neurological - Alert & oriented x3, CN II-XII in tact, 5/5 strength BUE and BLE Psychological - Appropriate affect Objective Data Active Medications Acetaminophen (Acetaminophen 325 Mg Tablet) 650 mg PO Q6H PRN PRN Reason: Pain, Mild (Pain Scale 1-3) Last Admin: 04/11/22 01:26 Dose: 650 mg Documented By: ABHI Albuterol Sulfate (Albuterol Sulfate (0.083%) 2.5 Mg/3 Ml Vial.Neb) 2.5 mg INHALE Q4H PRN PRN Reason: Wheezing Aspirin (Aspirin Enteric Coated 81 Mg Tablet.Dr) 81 mg PO DAILY [facility] Last Admin: 04/10/22 12:37 Dose: 81 mg Documented By: DOROTEO Atorvastatin Calcium (Atorvastatin Calcium 80 Mg Tablet) 80 mg PO DAILY [facility] Last Admin: 04/10/22 12:37 Dose: 80 mg Documented By: DOROTEO Benzonatate (Benzonatate 100 Mg Capsule) 100 mg PO TID PRN PRN Reason: Cough Last Admin: 04/10/22 08:30 Dose: 100 mg Documented By: DOROTEO Dextrose (Dextrose 50 % 25 Gm/50 Ml Syringe) 25 gm IVPUSH Q15M PRN; Protocol PRN Reason: per Hypoglycemia Standing Ord. Glucose (Glucose Gel 15 Gm Gel..Gram.) 15 gm PO Q15M PRN; Protocol PRN Reason: per Hypoglycemia Standing Ord. Heparin Sodium (Porcine) (Heparin Sodium,Porcine 5,000 Unit/Ml Vial) 2,700 unit 40 unit/kg (2700 unit) IVPUSH PROTOCOL BOLUS PRN; Protocol PRN Reason: 40 unit/kg - Heparin Protocol Last Admin: 04/10/22 20:27 Dose: 2,700 unit Documented By: HUSEYIN Heparin Sodium (Porcine) (Heparin Sodium,Porcine 5,000 Unit/Ml Vial) 5,400 unit 80 unit/kg (5400 unit) IVPUSH PROTOCOL BOLUS PRN; Protocol PRN Reason: 80 unit/kg - Heparin Protocol Sodium Chloride (Ns) 1,000 mls @ 125 mls/hr IVCONT .Q8H [facility] Last Admin: 04/11/22 05:56 Dose: 125 mls/hr Documented By: ABHI Heparin Sodium/Sodium Chloride (Heparin Sodium,Porcine/1/2ns) 25,000 unit in 250 mls @ 0 mls/hr IVCONT .Q0M [facility]; Protocol Last Titration: 04/11/22 01:00 Dose: 10 units/kg/hr, 6.8 mls/hr Documented By: ABHI Co-signed By: BREANA Insulin Human Lispro (Insulin Lispro 100 Unit/Ml 3 Ml Vial) 0 unit SUBCUT QIDACHS [facility]; Protocol Last Admin: 04/10/22 20:27 Dose: 4 unit Documented By: HUSEYIN Lisinopril (Lisinopril 40 Mg Tablet) 40 mg PO DAILY [facility]; Protocol Last Admin: 04/10/22 08:30 Dose: 40 mg Documented By: DOROTEO Metoprolol Tartrate (Metoprolol Tartrate 25 Mg Tablet) 25 mg PO BID [facility]; Protocol Nystatin (Nystatin Powder 15 Gm Bottle) 1 appl TOPICAL BID [facility]; Protocol Last Admin: 04/10/22 21:40 Dose: 1 appl Documented By: HUSEYIN Ondansetron HCl (Ondansetron Hcl 4 Mg/2 Ml Vial) 4 mg IVPUSH Q8H PRN PRN Reason: Nausea and Vomiting Pharmacy Consult (Consult Rx Perform Med Rec) 1 each MISCELLANE ONCE PRN PRN Reason: Consult order Pharmacy Consult (Consult Rx Perform Med Rec) 1 each MISCELLANE ONCE PRN PRN Reason: Consult order Prednisone (Prednisone 20 Mg Tablet) 40 mg PO DAILY [facility] Stop: 04/14/22 09:01 Last Admin: 04/10/22 12:37 Dose: 40 mg Documented By: DOROTEO Sodium Chloride (0.9 % Sodium Chloride Flush 3 Ml Syringe) 3 ml IVFLUSH QSHIFT [facility] Last Admin: 04/11/22 00:21 Dose: 3 ml Documented By: ABHI Vitamin D (Cholecalciferol (Vitamin D3) 10 Mcg Tablet) 10 mcg PO DAILY [facility] Last Admin: 04/10/22 08:30 Dose: 10 mcg Documented By: DOROTEO Labs CBC & Chem 7: 04/11/22 07:40 04/11/22 07:40 Labs: Laboratory Results - last 24 hr 04/10/22 04/10/22 04/10/22 11:14 12:20 16:23 aPTT Heparin Protocol 56.1 D POC Glucose 203 H 174 H 04/10/22 04/10/22 04/11/22 18:58 20:15 01:00 aPTT Heparin Protocol 52.5 L 76.7 D POC Glucose 241 H Microbiology Microbiology Results: Microbiology 04/09/22 12:01 Blood Culture - Preliminary Blood - Venous No growth after 24 hours. 04/09/22 11:26 Blood Culture - Preliminary Blood - Venous No growth after 24 hours. Assessment and Plan (1) Frostbite: Status: Acute (2) Rhabdomyolysis: Status: Acute (3) Stress-induced cardiomyopathy: Status: Acute (4) NSTEMI (non-ST elevated myocardial infarction): Status: Acute (5) Hypothermia: Status: Acute (6) Respiratory syncytial virus (RSV): Status: Acute Plan 89-year-old female with history of [id number] type 2 diabetes, hypertension, paroxysmal atrial fibrillation not on anticoagulation, and chronic low back pain admitted for environmental hypothermia with frostbite and secondary rhabdo and NSTEMI with probable stress induced cardiomyopathy. #Enviromental hypothermia-resolved -patient sitting in ground outside unable to get up for 5-6 hours. Rewarmed with bear hugger -temperature has been stable ranging 97.5-100.2 for about 20 hours. Still intermittently tachycardic to 104, heart rate now 88 -VS q4h #Frostbite -Given IVF and placed under bear hugger -No gangrene. No necrosis -Seen by gen surgery, no intervention necessary # acute hypoxemic respiratory failure-resolved -most likely secondary to stress-induced cardiomyopathy/NSTEMI -less likely secondary to RSV given absence of chronic lung disease -chest CT negative for any focal consolidation or acute intra pulmonary abnormality #NSTEMI/Stress-induced cardiomyopathy -secondary to hypothermia/muscle breakdown -Trop peaked >3600,now 2202 -EKG showing sinus tach, rate [address]/T-wave abnormalities, no TRISTIN -Continue asa, high intensity statin, continue bb change to 25mg BID -cardiology input appreciated -Echo completed this am shows EF 60-65%, regional WMA in the RCA territory, mild AR, normal RV SP. -Given ratio of trop to CK, more likely consistent with ACS -continue heparin per protocol initiated per Cardiology x48 hours -Given pt is asymptomatic, continue medical management, and will complete outpt pharmacological nuclear stress test and cardiology follow-up in a few weeks per Cardiology # rhabdomyolysis -CK trending down -Renal function/elevtrolytes normal -continue aggressive IVF -Monitor strict I&O to monitor for fluid overload -Follow CK in the morning # RSV infection -Hypoxia resolved -Now with wheezing and rhonchi. CXR ordered and negative. No hx chronic lung disease -Albuterol prn q4h. Prednisone 40mg daily x 5 day, D1 -symptomatic management with Robitussin, Tessalon Perles, throat spray -contact precautions # tas-xjtibej-vvvsklyll type 2 diabetes -POC glucose -diabetic diet -Humalog on sliding scale -patient advised she can have her son bring in her Trulicity.? Will need to go through pharmacy # L5 compression fracture -age indeterminate, question new -pain well controlled # osteopenia -noted on lower extremity x-rays with new compression fracture L5 -continue vitamin-D -follow-up outpatient with PCP # hypertension -continue lisinopril and metoprolol # paroxysmal atrial fibrillation-rate controlled -not on anticoagulation due to history of lower GI bleed -continue metoprolol Tachycardia secondary to hypothermia with secondary stress-induced cardiomyopathy/NSTEMI causing hypoxia, not severe sepsis.? Leukocytosis reactive, not sepsis. Elevated lactic acid secondary to hypoxia and hypothermia, not severe sepsis DVT prophylaxis-on heparin protocol DNR/DNI Dispo: Likely discharge home tomorrow with home PT after completing 48-72 hours heparin and medically cleared. Ongoing inpatient stay required for management of hypothermia with rhabdomyolysis and secondary NSTEMI/stress-induced cardiomyopathy requiring expert consultation and ongoing heparin drip per protocol as well as close monitoring of vital signs Quality Stroke Does the patient have a stroke diagnosis?: No VTE Prior VTE?: No VTE Risk Level:: Medical - moderate - high VTE Device Contraindication: Treatment Not Indicated VTE Drug Contraindication: N/A - Med Ordered
[2022-04-11 07:33] LABS: Glucose, Whole Blood 222 mg/dL (60-115)
[2022-04-11 07:54] LABS: MANUAL DIFF FLAG NO
[2022-04-11 08:00] VITALS: BP 148/56; PULSE 77; RESP 20; TEMP 36.6; O2SAT 98
[2022-04-11 08:00] LABS: Basophils Percent Auto 0.1 % (0-2); Hematocrit 29.1 % (37.0-47.0); Hemoglobin 9.3 g/dl (12.0-16.0); Imm Gran Abs Auto 0.09 X10*3/uL (0.00-0.03); Imm Gran Pct Auto 0.5 % (0.0-0.4); Lymphocytes Absolute Auto 0.9 X10*3/uL (1.2-4.9); Lymphocytes Percent Auto 4.5 % (20-40); Mean Corpuscular Hemoglobin 29.8 pg (27.0-33.0); Mean Corpuscular Volume 93.3 fL (80.0-98.0); Mean Platelet Volume 10.6 fL (9.4-12.3); Monocytes Absolute Auto 1.3 X10*3/uL (0.1-1.2); Monocytes Percent Auto 6.8 % (2-11); Neutrophils Absolute Auto 16.8 x10*3/uL (2.0-8.3); Neutrophils Percent Auto 88.1 % (45-73); Platelet Count 282 X10*3/uL (160-400); Red Blood Count 3.12 X10*6/uL (4.20-5.50); Red Cell Distribution Width 13.8 % (11.0-16.0); White Blood Count 19.1 X10*3/uL (4.8-10.8)
[2022-04-11 08:05] LABS: PTT Heparin Drip 88.4 SEC (53-77.9)
[2022-04-11 08:23] LABS: Anion Gap 15 (12-20); Blood Urea Nitrogen 46 mg/dL (9-16); Calcium 7.7 mg/dL (8.4-10.2); Carbon Dioxide 18 mmol/L (22-29); Chloride 112 mmol/L (96-108); Creatinine Clr Calc Pharmacy 32.6; Estimated Glomerular Filt Rate 45; Glucose Random 255 mg/dL (60-115); Potassium 4.8 mmol/L (3.3-5.1); Sodium 140 mmol/L (135-145)
[2022-04-11] MEDS: Insulin Lispro 100 UNIT/ML 3 ML VIAL SUBCUT ×4 (08:37→20:42)
[2022-04-11] MEDS: lisinopriL 40 MG TABLET PO (08:38)
[2022-04-11] MEDS: Aspirin Enteric Coated 81 MG TABLET.DR PO (08:38)
[2022-04-11] MEDS: Atorvastatin Calcium 80 MG TABLET PO (08:38)
[2022-04-11] MEDS: predniSONE 20 MG TABLET 40 MG PO (08:38)
[2022-04-11] MEDS: Cholecalciferol (Vitamin D3) 10 MCG TABLET PO (08:38)
[2022-04-11] MEDS: Metoprolol Tartrate 25 MG TABLET PO ×2 (08:38→20:41)
--- NOTE | 2022-04-11 09:18 | PM.PNGS ---
Subjective Subjective Date of Service: 04/11/22 Interval history: Described abdominal discomfort - says she feels like she is having diarrhea No other complaints Overall feels better than when she 1st came Physical Exam Vital Signs: Vital Signs: Last Vital Signs Temp 97.8 F 04/11/22 08:00 Pulse 77 04/11/22 08:00 Resp 20 04/11/22 08:00 BP 148/56 H 04/11/22 08:00 Pulse Ox 98 04/11/22 08:00 O2 Del Method 04/11/22 08:00 O2 Flow Rate 2 04/09/22 15:53 BMI result Body Mass Index 27.4 Const: General: comfortable and no acute distress Resp: Effort & Inspection: normal respiratory effort Cardio: Rate: regular rate GI: Palpation (GI): Soft to palpation, not firm and nontender Extrem: Other: Superficial discoloration of all areas of the lower extremities consistent with frostbite the skin, no gangrene Objective Data Active Medications Acetaminophen (Acetaminophen 325 Mg Tablet) 650 mg PO Q6H PRN PRN Reason: Pain, Mild (Pain Scale 1-3) Last Admin: 04/11/22 08:50 Dose: 650 mg Documented By: NESHA Albuterol Sulfate (Albuterol Sulfate (0.083%) 2.5 Mg/3 Ml Vial.Raj) 2.5 mg INHALE Q4H PRN PRN Reason: Wheezing Aspirin (Aspirin Enteric Coated 81 Mg Tablet.) 81 mg PO DAILY [facility] Last Admin: 04/11/22 08:38 Dose: 81 mg Documented By: NESHA Atorvastatin Calcium (Atorvastatin Calcium 80 Mg Tablet) 80 mg PO DAILY [facility] Last Admin: 04/11/22 08:38 Dose: 80 mg Documented By: NESHA Benzonatate (Benzonatate 100 Mg Capsule) 100 mg PO TID PRN PRN Reason: Cough Last Admin: 04/10/22 08:30 Dose: 100 mg Documented By: DOROTEO Dextrose (Dextrose 50 % 25 Gm/50 Ml Syringe) 25 gm IVPUSH Q15M PRN; Protocol PRN Reason: per Hypoglycemia Standing Ord. Glucose (Glucose Gel 15 Gm Gel..Gram.) 15 gm PO Q15M PRN; Protocol PRN Reason: per Hypoglycemia Standing Ord. Heparin Sodium (Porcine) (Heparin Sodium,Porcine 5,000 Unit/Ml Vial) 2,700 unit 40 unit/kg (2700 unit) IVPUSH PROTOCOL BOLUS PRN; Protocol PRN Reason: 40 unit/kg - Heparin Protocol Last Admin: 04/10/22 20:27 Dose: 2,700 unit Documented By: HUSEYIN Heparin Sodium (Porcine) (Heparin Sodium,Porcine 5,000 Unit/Ml Vial) 5,400 unit 80 unit/kg (5400 unit) IVPUSH PROTOCOL BOLUS PRN; Protocol PRN Reason: 80 unit/kg - Heparin Protocol Sodium Chloride (Ns) 1,000 mls @ 125 mls/hr IVCONT .Q8H [facility] Last Admin: 04/11/22 05:56 Dose: 125 mls/hr Documented By: ABHI Heparin Sodium/Sodium Chloride (Heparin Sodium,Porcine/1/2ns) 25,000 unit in 250 mls @ 0 mls/hr IVCONT .Q0M [facility]; Protocol Last Titration: 04/11/22 08:42 Dose: 8 units/kg/hr, 5.44 mls/hr Documented By: NESHA Co-signed By: BERTRAND Insulin Human Lispro (Insulin Lispro 100 Unit/Ml 3 Ml Vial) 0 unit SUBCUT QIDACHS [facility]; Protocol Last Admin: 04/11/22 08:37 Dose: 4 unit Documented By: NESHA Lisinopril (Lisinopril 40 Mg Tablet) 40 mg PO DAILY [facility]; Protocol Last Admin: 04/11/22 08:38 Dose: 40 mg Documented By: NESHA Metoprolol Tartrate (Metoprolol Tartrate 25 Mg Tablet) 25 mg PO BID [facility]; Protocol Last Admin: 04/11/22 08:38 Dose: 25 mg Documented By: NESHA Nystatin (Nystatin Powder 15 Gm Bottle) 1 appl TOPICAL BID [facility]; Protocol Last Admin: 04/10/22 21:40 Dose: 1 appl Documented By: HUSEYIN Ondansetron HCl (Ondansetron Hcl 4 Mg/2 Ml Vial) 4 mg IVPUSH Q8H PRN PRN Reason: Nausea and Vomiting Pharmacy Consult (Consult Rx Perform Med Rec) 1 each MISCELLANE ONCE PRN PRN Reason: Consult order Pharmacy Consult (Consult Rx Perform Med Rec) 1 each MISCELLANE ONCE PRN PRN Reason: Consult order Prednisone (Prednisone 20 Mg Tablet) 40 mg PO DAILY [facility] Stop: 04/14/22 09:01 Last Admin: 04/11/22 08:38 Dose: 40 mg Documented By: NESHA Sodium Chloride (0.9 % Sodium Chloride Flush 3 Ml Syringe) 3 ml IVFLUSH QSHIFT [facility] Last Admin: 04/11/22 08:41 Dose: Not Given Documented By: NESHA Non-Admin Reason: IV Running Vitamin D (Cholecalciferol (Vitamin D3) 10 Mcg Tablet) 10 mcg PO DAILY [facility] Last Admin: 04/11/22 08:38 Dose: 10 mcg Documented By: NESHA Labs CBC & Chem 7: 04/11/22 07:40 04/11/22 07:40 Labs: Laboratory Results - last 24 hr 04/10/22 04/10/22 04/10/22 11:14 12:20 16:23 MCV MCH MCHC RDW Plt Count MPV Immature Gran % (Auto) Neut % (Auto) Lymph % (Auto) [place] % (Auto) Eos % (Auto) Baso % (Auto) Lymph # (Auto) [place] # (Auto) Eos # (Auto) Baso # (Auto) Abs Immat Gran (auto) Absolute Neuts (auto) Absolute Nucleated RBC Nucleated RBC % (auto) aPTT Heparin Protocol 56.1 D Anion Gap Estim Creat Clear Calc Estimated GFR POC Glucose 203 H 174 H Random Glucose Calcium Total Creatine Kinase Troponin I High Sens 04/10/22 04/10/22 04/11/22 18:58 20:15 01:00 MCV MCH MCHC RDW Plt Count MPV Immature Gran % (Auto) Neut % (Auto) Lymph % (Auto) [place] % (Auto) Eos % (Auto) Baso % (Auto) Lymph # (Auto) [place] # (Auto) Eos # (Auto) Baso # (Auto) Abs Immat Gran (auto) Absolute Neuts (auto) Absolute Nucleated RBC Nucleated RBC % (auto) aPTT Heparin Protocol 52.5 L 76.7 D Anion Gap Estim Creat Clear Calc Estimated GFR POC Glucose 241 H Random Glucose Calcium Total Creatine Kinase Troponin I High Sens 04/11/22 04/11/22 04/11/22 07:24 07:40 07:40 MCV 93.3 MCH 29.8 MCHC 32.0 RDW 13.8 Plt Count 282 MPV 10.6 Immature Gran % (Auto) 0.5 H Neut % (Auto) 88.1 H Lymph % (Auto) 4.5 L [place]ner % (Auto) 6.8 Eos % (Auto) 0.0 Baso % (Auto) 0.1 Lymph # (Auto) 0.9 L [place] # (Auto) 1.3 H Eos # (Auto) 0.0 Baso # (Auto) 0.0 Abs Immat Gran (auto) 0.09 H Absolute Neuts (auto) 16.8 H Absolute Nucleated RBC 0.000 Nucleated RBC % (auto) 0.0 aPTT Heparin Protocol Anion Gap 15 Estim Creat Clear Calc 32.6 Estimated GFR 45 POC Glucose 222 H Random Glucose 255 H Calcium 7.7 L Total Creatine Kinase 1416 H Troponin I High Sens 04/11/22 04/11/22 07:40 07:40 MCV MCH MCHC RDW Plt Count MPV Immature Gran % (Auto) Neut % (Auto) Lymph % (Auto) [place] % (Auto) Eos % (Auto) Baso % (Auto) Lymph # (Auto) [place] # (Auto) Eos # (Auto) Baso # (Auto) Abs Immat Gran (auto) Absolute Neuts (auto) Absolute Nucleated RBC Nucleated RBC % (auto) aPTT Heparin Protocol 88.4 H Anion Gap Estim Creat Clear Calc Estimated GFR POC Glucose Random Glucose Calcium Total Creatine Kinase Troponin I High Sens 2202.2 H* Microbiology Microbiology Results: Microbiology 04/09/22 12:01 Blood Culture - Preliminary Blood - Venous No growth after 24 hours. 04/09/22 11:26 Blood Culture - Preliminary Blood - Venous No growth after 24 hours. Procedures Date of Service Date of Service: 04/11/22 Progress Note: A&P Assessment and plan (1) Frostbite: Status: Acute Assessment and Plan: Has other medical issues - non STEMI on heparin drip at this time No debridement planned Allow skin to slough off Appears comfortable otherwise Time Spent With Patient Time: Total time spent is greater than 50% in coordination of care (as documented) at patient's floor/unit and/or counseling patient: Quality Stroke Does the patient have a stroke diagnosis?: No VTE Prior VTE?: No VTE Risk Level:: Medical - moderate - high VTE Device Contraindication: Treatment Not Indicated VTE Drug Contraindication: N/A - Med Ordered
--- NOTE | 2022-04-11 09:52 | PM.PNCARD ---
Subjective Subjective Date of Service: 04/11/22 <TERESA Darling - Last Filed: 04/11/22 10:05> 04/11/22 <Pete Herring MD - Last Filed: 04/11/22 11:41> Principal diagnosis: Elevated Troponin, NSTEMI <TERESA Darling - Last Filed: 04/11/22 10:05> Interval history: Seen at 0900. Today she reports that she is fatigued but otherwise doing well. She denies having any chest discomfort. Denies shortness of breath, palpitation, dizziness. Echo completed this am. IV heparin drip infusing. Tele shows SR, PACs, atrial tach bursts, PVCs, average rate in 80s. <TERESA Darling - Last Filed: 04/11/22 10:05> Review of Systems Review of Systems as above <TERESA Darling - Last Filed: 04/11/22 10:05> Yes all other systems are reviewed and are negative <ETRESA Darling - Last Filed: 04/11/22 10:05> Physical Exam Vital Signs: Last Vital Signs Temp 97.8 F 04/11/22 08:00 Pulse 77 04/11/22 08:00 Resp 20 04/11/22 08:00 BP 148/56 H 04/11/22 08:00 Pulse Ox 98 04/11/22 08:00 O2 Del Method 04/11/22 08:00 O2 Flow Rate 2 04/09/22 15:53 BMI result Body Mass Index 27.4 <TERESA Darling - Last Filed: 04/11/22 10:05> Const General: cooperative, comfortable and no acute distress <TERESA Darling - Last Filed: 04/11/22 10:05> Orientation/consciousness: patient oriented x3 <TERESA Darling Last Filed: 04/11/22 10:05> Neck Neck: Yes normal visual inspection and Yes no JVD <TERESA Darling - Last Filed: 04/11/22 10:05> Resp Effort & Inspection: normal respiratory effort <TERESA Darling - Last Filed: 04/11/22 10:05> Auscultation: no crackles, no rales, no rhonchi and wheezes (expiratory wheezes noted, scattered) <Kristi Mujica [facility] - Last Filed: 04/11/22 10:05> Cardio Jugular venous distension: no JVD <Kristi Guanako [facility] - Last Filed: 04/11/22 10:05> Rate: regular rate <Kristi Guanako [facility] - Last Filed: 04/11/22 10:05> Rhythm: regular rhythm [facility] Last Filed: 04/11/22 10:05> Heart sounds: S1 normal heart sound present, S2 normal heart sound present, no gallops, no murmurs and no rubs <Kristi Guanako [facility] - Last Filed: 04/11/22 10:05> Neuro General: patient oriented x3 [facility] Last Filed: 04/11/22 10:05> Extrem General: Yes normal to inspection, No no pedal edema and No calf tenderness [facility] Last Filed: 04/11/22 10:05> Psych Appearance: grossly normal <Kristi Guanako [facility] - Last Filed: 04/11/22 10:05> Mental Status: mental status grossly normal <Kristiana m Mujica [facility] - Last Filed: 04/11/22 10:05> Speech and movement: Normal speech and movement present <Kristi Guanako [facility] - Last Filed: 04/11/22 10:05> Objective Labs and Meds Result diagrams: : 04/11/22 07:40 04/11/22 07:40 [facility] Last Filed: 04/11/22 10:05> Lab results: Laboratory Results - last 24 hr 04/10/22 04/10/22 04/10/22 11:14 12:20 16:23 WBC RBC Hgb Hct MCV MCH MCHC RDW Plt Count MPV Immature Gran % (Auto) Neut % (Auto) Lymph % (Auto) Hardin % (Auto) Eos % (Auto) Baso % (Auto) Lymph # (Auto) Hardin # (Auto) Eos # (Auto) Baso # (Auto) Abs Immat Gran (auto) Absolute Neuts (auto) Absolute Nucleated RBC Nucleated RBC % (auto) aPTT Heparin Protocol 56.1 D Sodium Potassium Chloride Carbon Dioxide Anion Gap BUN Creatinine Estim Creat Clear Calc Estimated GFR POC Glucose 203 H 174 H Random Glucose Calcium Total Creatine Kinase Troponin I High Sens 04/10/22 04/10/22 04/11/22 18:58 20:15 01:00 WBC RBC Hgb Hct MCV MCH MCHC RDW Plt Count MPV Immature Gran % (Auto) Neut % (Auto) Lymph % (Auto) Hardin % (Auto) Eos % (Auto) Baso % (Auto) Lymph # (Auto) Hardin # (Auto) Eos # (Auto) Baso # (Auto) Abs Immat Gran (auto) Absolute Neuts (auto) Absolute Nucleated RBC Nucleated RBC % (auto) aPTT Heparin Protocol 52.5 L 76.7 D Sodium Potassium Chloride Carbon Dioxide Anion Gap BUN Creatinine Estim Creat Clear Calc Estimated GFR POC Glucose 241 H Random Glucose Calcium Total Creatine Kinase Troponin I High Sens 04/11/22 04/11/22 04/11/22 07:24 07:40 07:40 WBC 19.1 H RBC 3.12 L Hgb 9.3 L Hct 29.1 L MCV 93.3 MCH 29.8 MCHC 32.0 RDW 13.8 Plt Count 282 MPV 10.6 Immature Gran % (Auto) 0.5 H Neut % (Auto) 88.1 H Lymph % (Auto) 4.5 L Hardin % (Auto) 6.8 Eos % (Auto) 0.0 Baso % (Auto) 0.1 Lymph # (Auto) 0.9 L Hardin # (Auto) 1.3 H Eos # (Auto) 0.0 Baso # (Auto) 0.0 Abs Immat Gran (auto) 0.09 H Absolute Neuts (auto) 16.8 H Absolute Nucleated RBC 0.000 Nucleated RBC % (auto) 0.0 aPTT Heparin Protocol Sodium 140 Potassium 4.8 Chloride 112 H Carbon Dioxide 18 L Anion Gap 15 BUN 46 H Creatinine 1.16 Estim Creat Clear Calc 32.6 Estimated GFR 45 POC Glucose 222 H Random Glucose 255 H Calcium 7.7 L Total Creatine Kinase 1416 H Troponin I High Sens 11/17/22 11/17/22 07:40 07:40 WBC RBC Hgb Hct MCV MCH MCHC RDW Plt Count MPV Immature Gran % (Auto) Neut % (Auto) Lymph % (Auto) Hardin % (Auto) Eos % (Auto) Baso % (Auto) Lymph # (Auto) Hardin # (Auto) Eos # (Auto) Baso # (Auto) Abs Immat Gran (auto) Absolute Neuts (auto) Absolute Nucleated RBC Nucleated RBC % (auto) aPTT Heparin Protocol 88.4 H Sodium Potassium Chloride Carbon Dioxide Anion Gap BUN Creatinine Estim Creat Clear Calc Estimated GFR POC Glucose Random Glucose Calcium Total Creatine Kinase Troponin I High Sens 2202.2 H* <TERESA Darling - Last Filed: 04/11/22 10:05> Imaging Radiologist's impression: Impressions Chest X-Ray 04/10/22 09:30 IMPRESSION: No evidence for acute disease in the chest. <TERESA Darling - Last Filed: 04/11/22 10:05> Progress Note: A&P Assessment and plan (1) NSTEMI (non-ST elevated myocardial infarction): Status: Acute <TERESA Darling - Last Filed: 04/11/22 10:05> Assessment and Plan: Events of admission reviewed. Has RSV, hypothermia resolved. Troponin elevation to > 3600 yesterday and down to 2202 today. Pt denies chest discomfort. EKGs reviewed and no acute ST/ T wave changes. No known cardiac hx. Cardiac risks of HTN, HLD, DM, age. She did have concern for Rhabdomyolysis and CPK elevated however troponin rise is out of proportion with CPK rise and most likely consistent with ACS. She has been treated with Heparin drip, which will continue for 48 hrs, then can be d/c. She is on Aspirin, atorvastatin, Metoprolol, Lisiopril. Echo completed this am shows EF 60-65%, regional WMA in the RCA territory, mild AR, normal RV SP. Pt is asymptomatic so will continue with medical management. We will plan for an outpt pharmacological nuclear stress test and cardiology follow up in few weeks. Reviewed all the above with her and she is agreeable to this plan. <TERESA Darlign - Last Filed: 04/11/22 10:05> Events of admission reviewed. Has RSV, hypothermia resolved. Troponin elevation to > 3600 yesterday and down to 2202 today. Pt denies chest discomfort. EKGs reviewed and no acute ST/ T wave changes. No known cardiac hx. Cardiac risks of HTN, HLD, DM, age. She did have concern for Rhabdomyolysis and CPK elevated however troponin rise is out of proportion with CPK rise and most likely consistent with ACS. She has been treated with Heparin drip, which will continue for 48 hrs, then can be d/c. She is on Aspirin, atorvastatin, Metoprolol, Lisiopril. Echo completed this am shows EF 60-65%, regional WMA in the RCA territory, mild AR, normal RV SP. Pt is asymptomatic so will continue with medical management. We will plan for an outpt pharmacological nuclear stress test and cardiology follow up in few weeks. Reviewed all the above with her and she is agreeable to this plan. Patient seen and examined. Case discussed with Kristi Mujica. Patient remains asymptomatic with no episodes of chest pain. Echocardiogram shows normal LV systolic function with regional wall motion abnormality in RCA territory. Not sure if this is new. Patient continues to recuperate from her respiratory illness. Continue medical therapy. Low-dose aspirin, metoprolol, high-intensity statin, seems to be tolerating it. Once her respiratory illness is improved will perform outpatient vasodilating myocardial perfusion imaging in 2 weeks and follow up after that. Management was discussed in details with her. She understands and agrees. Advised to call us with any new symptoms. Continue IV heparin for 1 more day. Potential plan for discharge tomorrow if medically okay <Pete Herring MD - Last Filed: 04/11/22 11:41> (2) Respiratory syncytial virus (RSV): Status: Acute <TERESA Darling - Last Filed: 04/11/22 10:05> Assessment and Plan: Ongoing management by hospitalist. <TERESA Darling - Last Filed: 04/11/22 10:05> Time Spent With Patient Time: Total time spent is greater than 50% in coordination of care (as documented) at patient's floor/unit and/or counseling patient: <TERESA Darling - Last Filed: 04/11/22 10:05> Progress Note: Quality Stroke Does the patient have a stroke diagnosis?: No <TERESA Darling - Last Filed: 04/11/22 10:05> Procedures Date of Service Date of Service: 04/11/22 <TERESA Darling - Last Filed: 04/11/22 10:05>
[2022-04-11 11:29] LABS: Glucose, Whole Blood 222 mg/dL (60-115)
[2022-04-11 11:50] VITALS: BP 141/93; PULSE 60; RESP 20; TEMP 36.6; O2SAT 94
[2022-04-11] MEDS: Nystatin Powder 15 GM BOTTLE 1 APPL TOPICAL ×2 (12:15→20:59)
[2022-04-11 15:43] VITALS: BP 140/76; PULSE 103; TEMP 37.1; O2SAT 95
[2022-04-11 15:44] LABS: PTT Heparin Drip 36.3 SEC (53-77.9)
[2022-04-11 16:03] LABS: Glucose, Whole Blood 271 mg/dL (60-115)
[2022-04-11] MEDS: Heparin Sodium,Porcine 5,000 UNIT/ML VIAL 5400 UNIT IVPUSH (16:35)
[2022-04-11 20:00] VITALS: BP 146/81; PULSE 77; RESP 19; TEMP 36.2; O2SAT 98
[2022-04-11 20:29] LABS: Glucose, Whole Blood 286 mg/dL (60-115)
[2022-04-11] MEDS: Benzonatate 100 MG CAPSULE PO (20:55)
--- NOTE | 2022-04-11 22:51 | PC.NURSE ---
2029; Heparin drip order discontinued in [place]. Dr. Gonzales notified via [employer]. Per Dr. Gonzales, stop heparin drip. @ 2046 heparin drip stopped with secondary RN Peyton. PTT draw due at 2229; Dr. Gonzales made aware. Per hospitalist, ptt lab no longer needed, ok to cancel. Lab notified.
[2022-04-12] VITALS: BP 150/78; PULSE 68; RESP 16; TEMP 36.3; O2SAT 94
[2022-04-12] MEDS: 0.9 % Sodium Chloride Flush 3 ML SYRINGE IVFLUSH ×4 (00:31→21:39)
[2022-04-12 04:00] VITALS: BP 150/60; PULSE 75; RESP 18; TEMP 36.1
[2022-04-12 06:52] LABS: Basophils Percent Auto 0.1 % (0-2); Hematocrit 30.4 % (37.0-47.0); Hemoglobin 9.8 g/dl (12.0-16.0); Imm Gran Abs Auto 0.18 X10*3/uL (0.00-0.03); Imm Gran Pct Auto 0.9 % (0.0-0.4); Lymphocytes Absolute Auto 1.2 X10*3/uL (1.2-4.9); Lymphocytes Percent Auto 5.7 % (20-40); MANUAL DIFF FLAG SCAN; Mean Corpuscular HGB Conc 32.2 g/dl (31.0-35.0); Mean Corpuscular Hemoglobin 30.1 pg (27.0-33.0); Mean Corpuscular Volume 93.3 fL (80.0-98.0); Mean Platelet Volume 11.3 fL (9.4-12.3); Monocytes Absolute Auto 1.7 X10*3/uL (0.1-1.2); Monocytes Percent Auto 8.1 % (2-11); Neutrophils Absolute Auto 17.6 x10*3/uL (2.0-8.3); Neutrophils Percent Auto 85.2 % (45-73); Platelet Count 266 X10*3/uL (160-400); Red Blood Count 3.26 X10*6/uL (4.20-5.50); Red Cell Distribution Width 13.8 % (11.0-16.0); SCAN SMEAR FLAG 1; White Blood Count 20.7 X10*3/uL (4.8-10.8)
[2022-04-12 07:08] LABS: Anion Gap 15 (12-20); Blood Urea Nitrogen 45 mg/dL (9-16); Calcium 7.9 mg/dL (8.4-10.2); Carbon Dioxide 18 mmol/L (22-29); Chloride 111 mmol/L (96-108); Creatinine Clr Calc Pharmacy 34.7; Estimated Glomerular Filt Rate 48; Glucose Random 257 mg/dL (60-115); Potassium 5.1 mmol/L (3.3-5.1); Sodium 139 mmol/L (135-145)
[2022-04-12 07:31] LABS: Glucose, Whole Blood 244 mg/dL (60-115)
[2022-04-12 07:42] LABS: SLIDE REVIEW VERIFIED
[2022-04-12 08:00] VITALS: BP 146/72; PULSE 67; RESP 17; TEMP 36.4; O2SAT 97
[2022-04-12] MEDS: Insulin Lispro 100 UNIT/ML 3 ML VIAL SUBCUT ×4 (08:18→21:38)
[2022-04-12] MEDS: Cholecalciferol (Vitamin D3) 10 MCG TABLET PO (08:19)
[2022-04-12] MEDS: Metoprolol Tartrate 25 MG TABLET PO ×2 (08:19→12:37)
[2022-04-12] MEDS: Aspirin Enteric Coated 81 MG TABLET.DR PO (08:19)
[2022-04-12] MEDS: lisinopriL 40 MG TABLET PO (08:19)
[2022-04-12] MEDS: predniSONE 20 MG TABLET 40 MG PO (08:19)
[2022-04-12] MEDS: Atorvastatin Calcium 80 MG TABLET PO (08:22)
[2022-04-12] MEDS: Nystatin Powder 15 GM BOTTLE 1 APPL TOPICAL ×2 (08:25→21:37)
--- NOTE | 2022-04-12 09:44 | PM.PNGS ---
Subjective Subjective Date of Service: 04/12/22 Interval history: Says she feels more comfortable Complaints of pain on the right foot on a bruised area Physical Exam Vital Signs: Vital Signs: Last Vital Signs Temp 97.5 F 04/12/22 08:00 Pulse 67 04/12/22 08:00 Resp 17 04/12/22 08:00 BP 146/72 H 04/12/22 08:00 Pulse Ox 97 04/12/22 08:00 O2 Del Method 04/12/22 08:00 O2 Flow Rate 2 04/09/22 15:53 BMI result Body Mass Index 27.4 Const: General: comfortable and no acute distress Resp: Effort & Inspection: normal respiratory effort Cardio: Rate: regular rate GI: Palpation (GI): Soft to palpation and nontender Extrem: Other: Patches of superficial skin discoloration from frostbite on both legs; hematoma on the dorsum of the right foot Objective Data Active Medications Acetaminophen (Acetaminophen 325 Mg Tablet) 650 mg PO Q6H PRN PRN Reason: Pain, Mild (Pain Scale 1-3) Last Admin: 04/11/22 20:55 Dose: 650 mg Documented By: GAGANDEEP Albuterol Sulfate (Albuterol Sulfate (0.083%) 2.5 Mg/3 Ml Vial.Neb) 2.5 mg INHALE Q4H PRN PRN Reason: Wheezing Aspirin (Aspirin Enteric Coated 81 Mg Tablet.) 81 mg PO DAILY [facility] Last Admin: 04/12/22 08:19 Dose: 81 mg Documented By: NESHA Atorvastatin Calcium (Atorvastatin Calcium 80 Mg Tablet) 80 mg PO DAILY [facility] Last Admin: 04/12/22 08:22 Dose: 80 mg Documented By: NESHA Benzonatate (Benzonatate 100 Mg Capsule) 100 mg PO TID PRN PRN Reason: Cough Last Admin: 04/11/22 20:55 Dose: 100 mg Documented By: GAGANDEEP Dextrose (Dextrose 50 % 25 Gm/50 Ml Syringe) 25 gm IVPUSH Q15M PRN; Protocol PRN Reason: per Hypoglycemia Standing Ord. Glucose (Glucose Gel 15 Gm Gel..Gram.) 15 gm PO Q15M PRN; Protocol PRN Reason: per Hypoglycemia Standing Ord. Insulin Human Lispro (Insulin Lispro 100 Unit/Ml 3 Ml Vial) 0 unit SUBCUT QIDACHS [facility]; Protocol Last Admin: 04/12/22 08:18 Dose: 4 unit Documented By: NESHA Lisinopril (Lisinopril 40 Mg Tablet) 40 mg PO DAILY [facility]; Protocol Last Admin: 04/12/22 08:19 Dose: 40 mg Documented By: NESHA Metoprolol Tartrate (Metoprolol Tartrate 25 Mg Tablet) 25 mg PO BID [facility]; Protocol Last Admin: 04/12/22 08:19 Dose: 25 mg Documented By: NESHA Nystatin (Nystatin Powder 15 Gm Bottle) 1 appl TOPICAL BID [facility]; Protocol Last Admin: 04/12/22 08:25 Dose: 1 appl Documented By: NESHA Ondansetron HCl (Ondansetron Hcl 4 Mg/2 Ml Vial) 4 mg IVPUSH Q8H PRN PRN Reason: Nausea and Vomiting Pharmacy Consult (Consult Rx Perform Med Rec) 1 each MISCELLANE ONCE PRN PRN Reason: Consult order Pharmacy Consult (Consult Rx Perform Med Rec) 1 each MISCELLANE ONCE PRN PRN Reason: Consult order Prednisone (Prednisone 20 Mg Tablet) 40 mg PO DAILY [facility] Stop: 04/14/22 09:01 Last Admin: 04/12/22 08:19 Dose: 40 mg Documented By: NESHA Sodium Chloride (0.9 % Sodium Chloride Flush 3 Ml Syringe) 3 ml IVFLUSH QSHIFT [facility] Last Admin: 04/12/22 08:22 Dose: 3 ml Documented By: NESHA Vitamin D (Cholecalciferol (Vitamin D3) 10 Mcg Tablet) 10 mcg PO DAILY [facility] Last Admin: 04/12/22 08:19 Dose: 10 mcg Documented By: NESHA Labs CBC & Chem 7: 04/12/22 06:21 04/12/22 06:21 Labs: Laboratory Results - last 24 hr 04/11/22 04/11/22 04/11/22 11:24 15:01 15:56 MCV MCH MCHC RDW Plt Count MPV Immature Gran % (Auto) Neut % (Auto) Lymph % (Auto) Mcdonald % (Auto) Eos % (Auto) Baso % (Auto) Lymph # (Auto) Mcdonald # (Auto) Eos # (Auto) Baso # (Auto) Abs Immat Gran (auto) Absolute Neuts (auto) Absolute Nucleated RBC Nucleated RBC % (auto) Smear Tech's Comments aPTT Heparin Protocol 36.3 L D Anion Gap Estim Creat Clear Calc Estimated GFR POC Glucose 222 H 271 H Random Glucose Calcium 04/11/22 04/12/22 04/12/22 20:19 06:21 06:21 MCV 93.3 MCH 30.1 MCHC 32.2 RDW 13.8 Plt Count 266 MPV 11.3 Immature Gran % (Auto) 0.9 H Neut % (Auto) 85.2 H Lymph % (Auto) 5.7 L Mcdonald % (Auto) 8.1 Eos % (Auto) 0.0 Baso % (Auto) 0.1 Lymph # (Auto) 1.2 Mcdonald # (Auto) 1.7 H Eos # (Auto) 0.0 Baso # (Auto) 0.0 Abs Immat Gran (auto) 0.18 H Absolute Neuts (auto) 17.6 H Absolute Nucleated RBC 0.000 Nucleated RBC % (auto) 0.0 Smear Tech's Comments VERIFIED aPTT Heparin Protocol Anion Gap 15 Estim Creat Clear Calc 34.7 Estimated GFR 48 POC Glucose 286 H Random Glucose 257 H Calcium 7.9 L 04/12/22 07:20 MCV MCH MCHC RDW Plt Count MPV Immature Gran % (Auto) Neut % (Auto) Lymph % (Auto) Mcdonald % (Auto) Eos % (Auto) Baso % (Auto) Lymph # (Auto) Mcdonald # (Auto) Eos # (Auto) Baso # (Auto) Abs Immat Gran (auto) Absolute Neuts (auto) Absolute Nucleated RBC Nucleated RBC % (auto) Smear Tech's Comments aPTT Heparin Protocol Anion Gap Estim Creat Clear Calc Estimated GFR POC Glucose 244 H Random Glucose Calcium Microbiology Microbiology Results: Microbiology 04/09/22 12:01 Blood Culture - Preliminary Blood - Venous No growth after 48 hours. 04/09/22 11:26 Blood Culture - Preliminary Blood - Venous No growth after 48 hours. Procedures Date of Service Date of Service: 04/12/22 Progress Note: A&P Assessment and plan (1) Frostbite: Status: Acute Assessment and Plan: Allow skin to slough off No debridement planned at this time especially with background of non STEMI Appears comfortable No cellulitic changes Rest of plan as per hospitalist service Time Spent With Patient Time: Total time spent is greater than 50% in coordination of care (as documented) at patient's floor/unit and/or counseling patient: Quality Stroke Does the patient have a stroke diagnosis?: No VTE Prior VTE?: No VTE Risk Level:: Medical - moderate - high VTE Device Contraindication: Treatment Not Indicated VTE Drug Contraindication: N/A - Med Ordered
--- NOTE | 2022-04-12 10:49 | PM.PNCARD ---
Subjective Subjective Date of Service: 04/12/22 <TERESA Darling - Last Filed: 04/12/22 11:02> 04/12/22 <Pete Herring MD - Last Filed: 04/12/22 11:59> Principal diagnosis: Elevated Troponin, NSTEMI <TERESA Darling - Last Filed: 04/12/22 11:02> Interval history: Seen at 0900. Today she reports feeling some fatigue and weakness. Did not sleep well. No chest pains or pressure. Denies feeling sob, coughing. No palpitations, dizziness. Ambulating short distances with assistance and walker. Tele monitor showing SR, brief episode of atrial tachycardia noted this am. IV Heparin drip completed. Does not feel ready for discharge <TERESA Darling - Last Filed: 04/12/22 11:02> Review of Systems Review of Systems as above <TERESA Darling - Last Filed: 04/12/22 11:02> Yes all other systems are reviewed and are negative <TERESA Darling - Last Filed: 04/12/22 11:02> Physical Exam Vital Signs: Last Vital Signs Temp 97.5 F 04/12/22 08:00 Pulse 67 04/12/22 08:00 Resp 17 04/12/22 08:00 BP 146/72 H 04/12/22 08:00 Pulse Ox 97 04/12/22 08:00 O2 Del Method 04/12/22 08:00 O2 Flow Rate 2 04/09/22 15:53 BMI result Body Mass Index 27.4 <TERESA Darling - Last Filed: 04/12/22 11:02> Const General: cooperative, healthy appearing, no acute distress, alert and awake <TERESA Darling - Last Filed: 04/12/22 11:02> Orientation/consciousness: patient oriented x3 <TERESA Darling Last Filed: 04/12/22 11:02> HEENT Head: Yes normal to inspection <TERESA Darling Last Filed: 04/12/22 11:02> Eyes Conjunctivae: conjunctivae normal <TERESA Darling - Last Filed: 04/12/22 11:02> Neck Neck: Yes normal visual inspection <[facility] [place] [facility] - Last Filed: 04/12/22 11:02> Resp Other: hoarse voice [facility] Last Filed: 04/12/22 11:02> Effort & Inspection: normal respiratory effort and labored <[facility] [place] [facility] - Last Filed: 04/12/22 11:02> Auscultation: clear to auscultation bilaterally, no crackles, no rales, no rhonchi and wheezes [facility] Last Filed: 04/12/22 11:02> Cardio Jugular venous distension: JVD present <[facility] Last Filed: 04/12/22 11:02> Rate: regular rate <[facility] Last Filed: 04/12/22 11:02> Rhythm: regular rhythm <[facility] Last Filed: 04/12/22 11:02> Heart sounds: S1 normal heart sound present and S2 normal heart sound present [facility] Last Filed: 04/12/22 11:02> Peripheral pulses: Peripheral pulses 2+ throughout <[facility] Last Filed: 04/12/22 11:02> GI Inspection: Yes normal to inspection <[facility] Last Filed: 04/12/22 11:02> Skin Other: healing abrasions and bruises noted on legs <[facility] Last Filed: 04/12/22 11:02> Neuro General: patient oriented x3 <[facility] [place] [facility] - Last Filed: 04/12/22 11:02> Extrem General: No edema <[facility] [place] [facility] - Last Filed: 04/12/22 11:02> Objective Labs and Meds Result diagrams: : 04/12/22 06:21 04/12/22 06:21 <Kristi [place] [facility] - Last Filed: 04/12/22 11:02> Lab results: Laboratory Results - last 24 hr 04/11/22 04/11/22 04/11/22 11:24 15:01 15:56 WBC RBC Hgb Hct MCV MCH MCHC RDW Plt Count MPV Immature Gran % (Auto) Neut % (Auto) Lymph % (Auto) [place] % (Auto) Eos % (Auto) Baso % (Auto) Lymph # (Auto) [place] # (Auto) Eos # (Auto) Baso # (Auto) Abs Immat Gran (auto) Absolute Neuts (auto) Absolute Nucleated RBC Nucleated RBC % (auto) Smear Tech's Comments aPTT Heparin Protocol 36.3 L D Sodium Potassium Chloride Carbon Dioxide Anion Gap BUN Creatinine Estim Creat Clear Calc Estimated GFR POC Glucose 222 H 271 H Random Glucose Calcium 04/11/22 04/12/22 04/12/22 20:19 06:21 06:21 WBC 20.7 H RBC 3.26 L Hgb 9.8 L Hct 30.4 L MCV 93.3 MCH 30.1 MCHC 32.2 RDW 13.8 Plt Count 266 MPV 11.3 Immature Gran % (Auto) 0.9 H Neut % (Auto) 85.2 H Lymph % (Auto) 5.7 L [place] % (Auto) 8.1 Eos % (Auto) 0.0 Baso % (Auto) 0.1 Lymph # (Auto) 1.2 [place] # (Auto) 1.7 H Eos # (Auto) 0.0 Baso # (Auto) 0.0 Abs Immat Gran (auto) 0.18 H Absolute Neuts (auto) 17.6 H Absolute Nucleated RBC 0.000 Nucleated RBC % (auto) 0.0 Smear Tech's Comments VERIFIED aPTT Heparin Protocol Sodium 139 Potassium 5.1 Chloride 111 H Carbon Dioxide 18 L Anion Gap 15 BUN 45 H Creatinine 1.09 Estim Creat Clear Calc 34.7 Estimated GFR 48 POC Glucose 286 H Random Glucose 257 H Calcium 7.9 L 04/12/22 07:20 WBC RBC Hgb Hct MCV MCH MCHC RDW Plt Count MPV Immature Gran % (Auto) Neut % (Auto) Lymph % (Auto) [place] % (Auto) Eos % (Auto) Baso % (Auto) Lymph # (Auto) [place] # (Auto) Eos # (Auto) Baso # (Auto) Abs Immat Gran (auto) Absolute Neuts (auto) Absolute Nucleated RBC Nucleated RBC % (auto) Smear Tech's Comments aPTT Heparin Protocol Sodium Potassium Chloride Carbon Dioxide Anion Gap BUN Creatinine Estim Creat Clear Calc Estimated GFR POC Glucose 244 H Random Glucose Calcium <TERESA Darling - Last Filed: 04/12/22 11:02> Progress Note: A&P Assessment and plan (1) NSTEMI (non-ST elevated myocardial infarction): Status: Acute <TERESA Darling - Last Filed: 04/12/22 11:02> Assessment and Plan: Being treated for NSTEMI this admission. Has had no reports of CP. Initially with some sob, mostly likely related to her RSV. Troponin elevation to > 3600 11 and down to 2202 yesterday. EKGs reviewed and no acute ST/ T wave changes. No known cardiac hx. Cardiac risks of HTN, HLD, DM, age. She has been treated with Heparin drip for 48 hrs. She is on Aspirin, high dose atorvastatin, Metoprolol, Lisinopril. Echo yesterday shows EF 60-65%, regional WMA in the RCA territory, mild AR, normal RV SP. Pt asymptomatic so will continue with medical management. We will plan for an outpt pharmacological nuclear stress test and cardiology follow up in few weeks. Reviewed all the above with her and she is agreeable to this plan. Can be discharged from a cardiology perspective. She reports having some fatigue and weakness. Medically, may require another day here. <TERESA Darling - Last Filed: 04/12/22 11:02> Being treated for NSTEMI this admission. Has had no reports of CP. Initially with some sob, mostly likely related to her RSV. Troponin elevation to > 3600 1116 and down to 2202 yesterday. EKGs reviewed and no acute ST/ T wave changes. No known cardiac hx. Cardiac risks of HTN, HLD, DM, age. She has been treated with Heparin drip for 48 hrs. She is on Aspirin, high dose atorvastatin, Metoprolol, Lisinopril. Echo yesterday shows EF 60-65%, regional WMA in the RCA territory, mild AR, normal RV SP. Pt asymptomatic so will continue with medical management. We will plan for an outpt pharmacological nuclear stress test and cardiology follow up in few weeks. Reviewed all the above with her and she is agreeable to this plan. Can be discharged from a cardiology perspective. She reports having some fatigue and weakness. Medically, may require another day here. Patient seen and examined. Case discussed with Kristi Mujica. Patient with no cardiac symptoms. Continues to have respiratory symptoms. Continue supportive care from that perspective. Currently on aspirin as well as high-intensity statin therapy. Tolerating that well. Increase metoprolol, see below. Continue lisinopril therapy. Outpatient myocardial perfusion imaging in 2 weeks time once her respiratory status and general medical condition improves. Patient is agreeable. Can be discharged home once okay from medical perspective. Will sign of the case <Ptee Herring MD - Last Filed: 04/12/22 11:59> (2) Atrial tachycardia: Status: Acute <TERESA Darling - Last Filed: 04/12/22 11:02> Assessment and Plan: Tele monitoring this admit shows SR, PACs, PVCs, rates mostly 70-80s. This am noted to have brief episode of atrial tach 6 beats, while having sinus tach rates 128. BP is elevated at 150/60. Will increase Metoprolol tartrate to 50mg bid. Continue Lisinopril. <TERESA Darling - Last Filed: 04/12/22 11:02> Tele monitoring this admit shows SR, PACs, PVCs, rates mostly 70-80s. This am noted to have brief episode of atrial tach 6 beats, while having sinus tach rates 128. BP is elevated at 150/60. Will increase Metoprolol tartrate to 50mg bid. Continue Lisinopril. Increase metoprolol to 50 mg b.i.d.. Avoidance of stimulants discussed. Outpatient Holter monitor. <Pete Herring MD - Last Filed: 04/12/22 11:59> (3) Hypertension: Status: Acute <TERESA Darling - Last Filed: 04/12/22 11:02> Assessment and Plan: As above. K 5.1 this am. She is on Lisinopril which is at her usual home dose. Continue to follow BMP and reduce Lisinopril if needed for elevated K <TERESA Darling - Last Filed: 04/12/22 11:02> (4) Respiratory syncytial virus (RSV): Status: Acute <TERESA Darling - Last Filed: 04/12/22 11:02> Assessment and Plan: Ongoing management by hospitalist. <TERESA Darling - Last Filed: 04/12/22 11:02> Time Spent With Patient Time: Total time spent is greater than 50% in coordination of care (as documented) at patient's floor/unit and/or counseling patient: 24 <TERESA Darling - Last Filed: 04/12/22 11:02> Progress Note: Quality Stroke Does the patient have a stroke diagnosis?: No <TERESA Darling - Last Filed: 04/12/22 11:02> Procedures Date of Service Date of Service: 04/12/22 <TERESA Darling - Last Filed: 04/12/22 11:02>
[2022-04-12 11:38] LABS: Glucose, Whole Blood 189 mg/dL (60-115)
[2022-04-12 12:00] VITALS: BP 152/69; PULSE 73; RESP 18; TEMP 36.9; O2SAT 100
--- NOTE | 2022-04-12 12:07 | HO.PM.IMPN ---
Subjective Subjective Date of Service: 04/12/22 Interval History: cc: fell outside in cold interval history:crampy abd pain Cardiovascular Cardiovascular: Reports no additional cardiovascular complaints Respiratory Respiratory: Reports no additional respiratory complaints Physical Exam Vital Signs: Vital Signs: Last Vital Signs Temp 98.4 F 04/12/22 12:00 Pulse 73 04/12/22 12:00 Resp 18 04/12/22 12:00 BP 152/69 H 04/12/22 12:00 Pulse Ox 100 04/12/22 12:00 O2 Del Method 04/12/22 12:00 O2 Flow Rate 2 04/09/22 15:53 BMI result Body Mass Index 27.4 Const: General: cooperative, healthy appearing, no acute distress, alert and awake Orientation/consciousness: patient oriented x3 HEENT: Head: Yes normal to inspection Eyes: Conjunctivae: conjunctivae normal Neck: Neck: Yes normal visual inspection Resp: Other: hoarse voice Effort & Inspection: normal respiratory effort and labored Auscultation: clear to auscultation bilaterally, no crackles, no rales, no rhonchi and wheezes Cardio: Jugular venous distension: JVD present Rate: regular rate Rhythm: regular rhythm Heart sounds: S1 normal heart sound present and S2 normal heart sound present Peripheral pulses: Peripheral pulses 2+ throughout GI: Inspection: Yes normal to inspection Skin: Other: healing abrasions and bruises noted on legs Neuro: General: patient oriented x3 Extrem: General: No edema Objective Data Active Medications Acetaminophen (Acetaminophen 325 Mg Tablet) 650 mg PO Q6H PRN PRN Reason: Pain, Mild (Pain Scale 1-3) Last Admin: 04/11/22 20:55 Dose: 650 mg Documented By: GAGANDEEP Albuterol Sulfate (Albuterol Sulfate (0.083%) 2.5 Mg/3 Ml Vial.Neb) 2.5 mg INHALE Q4H PRN PRN Reason: Wheezing Aspirin (Aspirin Enteric Coated 81 Mg Tablet.) 81 mg PO DAILY [facility] Last Admin: 04/12/22 08:19 Dose: 81 mg Documented By: NESHA Atorvastatin Calcium (Atorvastatin Calcium 80 Mg Tablet) 80 mg PO DAILY [facility] Last Admin: 04/12/22 08:22 Dose: 80 mg Documented By: NESHA Benzonatate (Benzonatate 100 Mg Capsule) 100 mg PO TID PRN PRN Reason: Cough Last Admin: 04/11/22 20:55 Dose: 100 mg Documented By: GAGANDEEP Dextrose (Dextrose 50 % 25 Gm/50 Ml Syringe) 25 gm IVPUSH Q15M PRN; Protocol PRN Reason: per Hypoglycemia Standing Ord. Glucose (Glucose Gel 15 Gm Gel..Gram.) 15 gm PO Q15M PRN; Protocol PRN Reason: per Hypoglycemia Standing Ord. Insulin Human Lispro (Insulin Lispro 100 Unit/Ml 3 Ml Vial) 0 unit SUBCUT QIDACHS [facility]; Protocol Last Admin: 04/12/22 08:18 Dose: 4 unit Documented By: NESHA Lisinopril (Lisinopril 40 Mg Tablet) 40 mg PO DAILY [facility]; Protocol Last Admin: 04/12/22 08:19 Dose: 40 mg Documented By: NESHA Metoprolol Tartrate (Metoprolol Tartrate 50 Mg Tablet) 50 mg PO BID [facility]; Protocol Nystatin (Nystatin Powder 15 Gm Bottle) 1 appl TOPICAL BID [facility]; Protocol Last Admin: 04/12/22 08:25 Dose: 1 appl Documented By: NESHA Ondansetron HCl (Ondansetron Hcl 4 Mg/2 Ml Vial) 4 mg IVPUSH Q8H PRN PRN Reason: Nausea and Vomiting Pharmacy Consult (Consult Rx Perform Med Rec) 1 each MISCELLANE ONCE PRN PRN Reason: Consult order Pharmacy Consult (Consult Rx Perform Med Rec) 1 each MISCELLANE ONCE PRN PRN Reason: Consult order Prednisone (Prednisone 20 Mg Tablet) 40 mg PO DAILY [facility] Stop: 04/14/22 09:01 Last Admin: 04/12/22 08:19 Dose: 40 mg Documented By: NESHA Sodium Chloride (0.9 % Sodium Chloride Flush 3 Ml Syringe) [facility] Last Admin: 04/12/22 08:22 Dose: 3 ml Documented By: NESHA Vitamin D (Cholecalciferol (Vitamin D3) 10 Mcg Tablet) 10 mcg PO DAILY [facility] Last Admin: 04/12/22 08:19 Dose: 10 mcg Documented By: NESHA Labs CBC & Chem 7: 04/12/22 06:21 04/12/22 06:21 Labs: Laboratory Results - last 24 hr 04/11/22 04/11/2204/11/22 15:01 15:56 20:19 MCV MCH MCHC RDW Plt Count MPV Immature Gran % (Auto) Neut % (Auto) Lymph % (Auto) [place] % (Auto) Eos % (Auto) Baso % (Auto) Lymph # (Auto) [place] # (Auto) Eos # (Auto) Baso # (Auto) Abs Immat Gran (auto) Absolute Neuts (auto) Absolute Nucleated RBC Nucleated RBC % (auto) Smear Tech's Comments aPTT Heparin Protocol 36.3 L D Anion Gap Estim Creat Clear Calc Estimated GFR POC Glucose 271 H 286 H Random Glucose Calcium 04/12/22 04/12/22 04/12/22 06:21 06:21 07:20 MCV 93.3 MCH 30.1 MCHC 32.2 RDW 13.8 Plt Count 266 MPV 11.3 Immature Gran % (Auto) 0.9 H Neut % (Auto) 85.2 H Lymph % (Auto) 5.7 L Page % (Auto) 8.1 Eos % (Auto) 0.0 Baso % (Auto) 0.1 Lymph # (Auto) 1.2 Page # (Auto) 1.7 H Eos # (Auto) 0.0 Baso # (Auto) 0.0 Abs Immat Gran (auto) 0.18 H Absolute Neuts (auto) 17.6 H Absolute Nucleated RBC 0.000 Nucleated RBC % (auto) 0.0 Smear Tech's Comments VERIFIED aPTT Heparin Protocol Anion Gap 15 Estim Creat Clear Calc 34.7 Estimated GFR 48 POC Glucose 244 H Random Glucose 257 H Calcium 7.9 L 04/12/22 11:34 MCV MCH MCHC RDW Plt Count MPV Immature Gran % (Auto) Neut % (Auto) Lymph % (Auto) [place] % (Auto) Eos % (Auto) Baso % (Auto) Lymph # (Auto) Page # (Auto) Eos # (Auto) Baso # (Auto) Abs Immat Gran (auto) Absolute Neuts (auto) Absolute Nucleated RBC Nucleated RBC % (auto) Smear Tech's Comments aPTT Heparin Protocol Anion Gap Estim Creat Clear Calc Estimated GFR POC Glucose 189 H Random Glucose Calcium Microbiology Microbiology Results: Microbiology 04/09/22 12:01 Blood Culture - Preliminary Blood - Venous No growth after 48 hours. 04/09/22 11:26 Blood Culture - Preliminary Blood - Venous No growth after 48 hours. Assessment and Plan (1) Frostbite: Status: Acute (2) Rhabdomyolysis: Status: Acute (3) Stress-induced cardiomyopathy: Status: Acute (4) NSTEMI (non-ST elevated myocardial infarction): Status: Acute (5) Hypothermia: Status: Acute (6) Respiratory syncytial virus (RSV): Status: Acute Plan 89-year-old female with history of [id number] type 2 diabetes, hypertension, paroxysmal atrial fibrillation not on anticoagulation, and chronic low back pain admitted for environmental hypothermia with frostbite and secondary rhabdo and NSTEMI with probable stress induced cardiomyopathy. after mechanical fall outside in early AM, unable to get inside for several hours. Enviromental hypothermia resolved patient sitting in ground outside unable to get up for 5-6 hours. Rewarmed with bear hugger temperature has been stable ranging 97.5-100.2 for about 20 hours. Still intermittently tachycardic to 104, heart rate now 88 VS q4h Frostbite -Given IVF and placed under bear hugger No gangrene. No necrosis Seen by gen surgery, no intervention necessary acute hypoxemic respiratory failure-resolved most likely secondary to stress-induced cardiomyopathy/NSTEMI less likely secondary to RSV given absence of chronic lung disease chest CT negative for any focal consolidation or acute intra pulmonary abnormality NSTEMI EKG showing sinus tach, rate [address]/T-wave abnormalities, no TRISTIN Continue asa, high intensity statin, continue bb change to 25mg BID s/p 48hr heparin iv -Echo shows EF 60-65%, regional WMA in the RCA territory, mild AR, normal RV SP. Given pt is asymptomatic, continue medical management, and will complete outpt pharmacological nuclear stress test and cardiology follow-up in 2 weeks per Cardiology mild acute rhabdomyolysis resolved abd pain check gi panel, mild, monitor for now RSV infection Hypoxia resolved Albuterol prn q4h. Prednisone 40mg daily x 5 day, D2 -symptomatic management with Robitussin, Tessalon Perles, throat spray -contact precautions [id number] type 2 diabetes POC glucose diabetic diet Humalog on sliding scale - advised she can have her son bring in her Trulicity.? Will need to go through pharmacy L5 compression fracture age indeterminate, question new pain well controlled osteopenia noted on lower extremity x-rays with new compression fracture L5 continue vitamin-D -follow-up outpatient with PCP hypertension continue lisinopril and metoprolol paroxysmal atrial fibrillation-rate controlled not on anticoagulation due to history of lower GI bleed continue metoprolol DVT prophylaxis- lovenox DNR/DNI reason for continued hospitalization:still feeling lousy, abd pain Quality Stroke Does the patient have a stroke diagnosis?: No VTE Prior VTE?: No VTE Risk Level:: Medical - moderate - high VTE Device Contraindication: Treatment Not Indicated VTE Drug Contraindication: N/A - Med Ordered
[2022-04-12] MEDS: Omeprazole 20 MG CAPSULE.DR PO (12:36)
[2022-04-12 15:51] VITALS: BP 146/6; PULSE 66; RESP 18; TEMP 37.1; O2SAT 94
[2022-04-12 15:58] LABS: Glucose, Whole Blood 184 mg/dL (60-115)
[2022-04-12 20:00] VITALS: BP 164/77; PULSE 85; RESP 18; TEMP 37.1; O2SAT 98
[2022-04-12 20:19] LABS: Glucose, Whole Blood 208 mg/dL (60-115)
[2022-04-12] MEDS: Metoprolol Tartrate 50 MG TABLET PO (21:38)
[2022-04-12] MEDS: Acetaminophen 325 MG TABLET 650 MG PO (21:41)
[2022-04-13] VITALS (7 sets, daily range): BP systolic 118–150; BP diastolic 46–64; PULSE 46–74; RESP 16–20; TEMP 36.1–37.2; O2SAT 93–100
[2022-04-13] MEDS: Omeprazole 20 MG CAPSULE.DR PO (06:01)
[2022-04-13 07:55] LABS: Glucose, Whole Blood 172 mg/dL (60-115)
[2022-04-13] MEDS: predniSONE 20 MG TABLET 40 MG PO (08:01)
[2022-04-13] MEDS: Insulin Lispro 100 UNIT/ML 3 ML VIAL SUBCUT ×4 (08:01→21:09)
[2022-04-13] MEDS: Atorvastatin Calcium 80 MG TABLET PO (08:01)
[2022-04-13] MEDS: Cholecalciferol (Vitamin D3) 10 MCG TABLET PO (08:02)
[2022-04-13] MEDS: Metoprolol Tartrate 50 MG TABLET PO ×2 (08:02→21:09)
[2022-04-13] MEDS: Aspirin Enteric Coated 81 MG TABLET.DR PO (08:02)
[2022-04-13] MEDS: Acetaminophen 325 MG TABLET 650 MG PO ×2 (08:02→17:02)
[2022-04-13] MEDS: lisinopriL 40 MG TABLET PO (08:02)
[2022-04-13] MEDS: 0.9 % Sodium Chloride Flush 3 ML SYRINGE IVFLUSH ×3 (08:06→21:09)
[2022-04-13] MEDS: Nystatin Powder 15 GM BOTTLE 1 APPL TOPICAL ×2 (08:11→21:09)
[2022-04-13 08:27] LABS: Anion Gap 16 (12-20); Blood Urea Nitrogen 40 mg/dL (9-16); Carbon Dioxide 18 mmol/L (22-29); Chloride 112 mmol/L (96-108); Creatinine Clr Calc Pharmacy 35.4; Estimated Glomerular Filt Rate 49; Glucose Fasting 179 mg/dL (60-99); Potassium 5.2 mmol/L (3.3-5.1); Sodium 141 mmol/L (135-145)
--- NOTE | 2022-04-13 09:07 | HO.PM.IMPN ---
Subjective Subjective Date of Service: 04/13/22 Interval History: cc: fell outside in cold interval history: pain in the leg from area of injuries Review of Systems no fever no chills Physical Exam Vital Signs: Vital Signs: Last Vital Signs Temp 98.9 F 04/13/22 07:33 Pulse 74 04/13/22 07:33 Resp 20 04/13/22 07:33 BP 150/54 H 04/13/22 07:33 Pulse Ox 99 04/13/22 07:33 O2 Del Method 04/13/22 07:33 O2 Flow Rate 2 04/09/22 15:53 BMI result Body Mass Index 27.4 Const: Other: General: AO X 3, no acute distress Resp: rhonchi CVS: S1,S2,RRR GI: +BS, NT, no distention Skin: No rash Neuro: motor grossly intact Psych: appropriate affect Objective Data Active Medications Acetaminophen (Acetaminophen 325 Mg Tablet) 650 mg PO Q6H PRN PRN Reason: Pain, Mild (Pain Scale 1-3) Last Admin: 04/13/22 08:02 Dose: 650 mg Documented By: HUSEYIN Albuterol Sulfate (Albuterol Sulfate (0.083%) 2.5 Mg/3 Ml Vial.Raj) 2.5 mg INHALE Q4H PRN PRN Reason: Wheezing Aspirin (Aspirin Enteric Coated 81 Mg Tablet.) 81 mg PO DAILY [facility] Last Admin: 04/13/22 08:02 Dose: 81 mg Documented By: HUSEYIN Atorvastatin Calcium (Atorvastatin Calcium 80 Mg Tablet) 80 mg PO DAILY [facility] Last Admin: 04/13/22 08:01 Dose: 80 mg Documented By: HUSEYIN Benzonatate (Benzonatate 100 Mg Capsule) 100 mg PO TID PRN PRN Reason: Cough Last Admin: 04/11/22 20:55 Dose: 100 mg Documented By: TUMASY Dextrose (Dextrose 50 % 25 Gm/50 Ml Syringe) 25 gm IVPUSH Q15M PRN; Protocol PRN Reason: per Hypoglycemia Standing Ord. Enoxaparin Sodium (Enoxaparin Sodium 40 Mg/0.4 Ml Syringe) 40 mg SUBCUT Q24H [facility] Last Admin: 04/12/22 12:43 Dose: Not Given Documented By: NESHA Non-Admin Reason: Patient Refused Glucose (Glucose Gel 15 Gm Gel..Gram.) 15 gm PO Q15M PRN; Protocol PRN Reason: per Hypoglycemia Standing Ord. Insulin Human Lispro (Insulin Lispro 100 Unit/Ml 3 Ml Vial) 0 unit SUBCUT QIDACHS [facility]; Protocol Last Admin: 04/13/22 08:01 Dose: 2 unit Documented By: HUSEYIN Lisinopril (Lisinopril 40 Mg Tablet) 40 mg PO DAILY [facility]; Protocol Last Admin: 04/13/22 08:02 Dose: 40 mg Documented By: HUSEYIN Metoprolol Tartrate (Metoprolol Tartrate 50 Mg Tablet) 50 mg PO BID [facility]; Protocol Last Admin: 04/13/22 08:02 Dose: 50 mg Documented By: HUSEYIN Nystatin (Nystatin Powder 15 Gm Bottle) 1 appl TOPICAL BID [facility]; Protocol Last Admin: 04/13/22 08:11 Dose: 1 appl Documented By: HUSEYIN Omeprazole (Omeprazole 20 Mg Capsule.Dr) 20 mg PO DAILY@0630 [facility] Last Admin: 04/13/22 06:01 Dose: 20 mg Documented By: MIRTHA Ondansetron HCl (Ondansetron Hcl 4 Mg/2 Ml Vial) 4 mg IVPUSH Q8H PRN PRN Reason: Nausea and Vomiting Pharmacy Consult (Consult Rx Perform Med Rec) 1 each MISCELLANE ONCE PRN PRN Reason: Consult order Pharmacy Consult (Consult Rx Perform Med Rec) 1 each MISCELLANE ONCE PRN PRN Reason: Consult order Prednisone (Prednisone 20 Mg Tablet) 40 mg PO DAILY [facility] Stop: 04/14/22 09:01 Last Admin: 04/13/22 08:01 Dose: 40 mg Documented By: HUSEYIN Sodium Chloride (0.9 % Sodium Chloride Flush 3 Ml Syringe) 3 ml IVFLUSH QSHIFT [facility] Last Admin: 04/13/22 08:06 Dose: 3 ml Documented By: HUSEYIN Vitamin D (Cholecalciferol (Vitamin D3) 10 Mcg Tablet) 10 mcg PO DAILY [facility] Last Admin: 04/13/22 08:02 Dose: 10 mcg Documented By: HUSEYIN Labs CBC & Chem 7: 04/12/22 06:21 04/13/22 07:14 Labs: Laboratory Results - last 24 hr 04/12/22 04/12/2222 11:34 15:53 20:13 Anion Gap Estim Creat Clear Calc Estimated GFR POC Glucose 189 H 184 H 208 H Fasting Glucose Calcium 04/13/22 04/13/22 07:14 07:40 Anion Gap 16 Estim Creat Clear Calc 35.4 Estimated GFR 49 POC Glucose 172 H Fasting Glucose 179 H Calcium 8.0 L Assessment and Plan (1) Frostbite: Status: Acute (2) Rhabdomyolysis: Status: Acute (3) Stress-induced cardiomyopathy: Status: Acute (4) NSTEMI (non-ST elevated myocardial infarction): Status: Acute (5) Hypothermia: Status: Acute (6) Respiratory syncytial virus (RSV): Status: Acute Plan 89-year-old female with history of [id number] type 2 diabetes, hypertension, paroxysmal atrial fibrillation not on anticoagulation, and chronic low back pain admitted for environmental hypothermia with frostbite and secondary rhabdo and NSTEMI with probable stress induced cardiomyopathy. after mechanical fall outside in early AM, unable to get inside for several hours. Enviromental hypothermia resolved patient sitting in ground outside unable to get up for 5-6 hours. Rewarmed with bear hugger temperature has been stable ranging 97.5-100.2 for about 20 hours. Still intermittently tachycardic to 104, heart rate now 88 VS q4h Frostbite -Given IVF and placed under bear hugger No gangrene. No necrosis Seen by gen surgery, no intervention necessary acute hypoxemic respiratory failure-resolved most likely secondary to stress-induced cardiomyopathy/NSTEMI less likely secondary to RSV given absence of chronic lung disease chest CT negative for any focal consolidation or acute intra pulmonary abnormality NSTEMI EKG showing sinus tach, rate [address]/T-wave abnormalities, no TRISTIN Continue asa, high intensity statin, continue bb change to 25mg BID s/p 48hr heparin iv -Echo shows EF 60-65%, regional WMA in the RCA territory, mild AR, normal RV SP. Given pt is asymptomatic, continue medical management, and will complete outpt pharmacological nuclear stress test and cardiology follow-up in 2 weeks per Cardiology mild acute rhabdomyolysis resolved leukocytosis likely reactive and from steroid abd pain check gi panel, mild, monitor for now RSV infection Hypoxia resolved Albuterol prn q4h. Prednisone 40mg daily x 5 day, D2 -symptomatic management with Robitussin, Tessalon Perles, throat spray -contact precautions [id number]-jhvpeeffn type 2 diabetes POC glucose diabetic diet Humalog on sliding scale - advised she can have her son bring in her Trulicity.? Will need to go through pharmacy L5 compression fracture age indeterminate, question new pain well controlled osteopenia noted on lower extremity x-rays with new compression fracture L5 continue vitamin-D -follow-up outpatient with PCP hypertension continue lisinopril and metoprolol paroxysmal atrial fibrillation-rate controlled not on anticoagulation due to history of lower GI bleed continue metoprolol DVT prophylaxis- lovenox DNR/DNI reason for continued hospitalization:still feeling lousy, abd pain Quality Stroke Does the patient have a stroke diagnosis?: No VTE Prior VTE?: No VTE Risk Level:: Medical - moderate - high VTE Device Contraindication: Treatment Not Indicated VTE Drug Contraindication: N/A - Med Ordered
[2022-04-13 09:20] LABS: Hematocrit 28.2 % (37.0-47.0); Hemoglobin 8.9 g/dl (12.0-16.0); Mean Corpuscular HGB Conc 31.6 g/dl (31.0-35.0); Mean Corpuscular Hemoglobin 29.3 pg (27.0-33.0); Mean Corpuscular Volume 92.8 fL (80.0-98.0); Platelet Count 305 X10*3/uL (160-400); Red Blood Count 3.04 X10*6/uL (4.20-5.50); White Blood Count 17.7 X10*3/uL (4.8-10.8)
[2022-04-13 11:33] LABS: Glucose, Whole Blood 203 mg/dL (60-115)
[2022-04-13] MEDS: Enoxaparin Sodium 40 MG/0.4 ML SYRINGE SUBCUT (11:49)
[2022-04-13 16:32] LABS: Glucose, Whole Blood 280 mg/dL (60-115)
[2022-04-13 20:09] LABS: Glucose, Whole Blood 305 mg/dL (60-115)
[2022-04-14 03:48] VITALS: BP 166/72; PULSE 97; RESP 20; TEMP 37; O2SAT 99
[2022-04-14] MEDS: Omeprazole 20 MG CAPSULE.DR PO (06:13)
[2022-04-14 07:31] LABS: Glucose, Whole Blood 253 mg/dL (60-115)
[2022-04-14 07:56] VITALS: BP 126/72; PULSE 45; RESP 18; TEMP 36; O2SAT 97
[2022-04-14] MEDS: Atorvastatin Calcium 80 MG TABLET PO (08:08)
[2022-04-14] MEDS: Insulin Lispro 100 UNIT/ML 3 ML VIAL SUBCUT ×4 (08:08→20:02)
[2022-04-14] MEDS: predniSONE 20 MG TABLET 40 MG PO (08:08)
[2022-04-14] MEDS: Cholecalciferol (Vitamin D3) 10 MCG TABLET PO (08:08)
[2022-04-14] MEDS: lisinopriL 40 MG TABLET PO (08:08)
[2022-04-14] MEDS: 0.9 % Sodium Chloride Flush 3 ML SYRINGE IVFLUSH ×3 (08:09→21:36)
[2022-04-14] MEDS: Aspirin Enteric Coated 81 MG TABLET.DR PO (08:09)
[2022-04-14] MEDS: Nystatin Powder 15 GM BOTTLE 1 APPL TOPICAL ×2 (08:19→20:05)
[2022-04-14 11:14] VITALS: BP 110/66; PULSE 68; RESP 18; TEMP 36.6; O2SAT 95
--- NOTE | 2022-04-14 11:20 | P.PNIM_ITS ---
Subjective Subjective Date of Service: 04/15/22 Interval History: cc: fell outside in cold interval history: Still very weak and frail Review of Systems no fever no chills Physical Exam Vital Signs: Vital Signs: Last Vital Signs Temp 97.8 F 04/14/22 11:14 Pulse 68 04/14/22 11:14 Resp 18 04/14/22 11:14 BP 110/66 04/14/22 11:14 Pulse Ox 95 04/14/22 11:14 O2 Del Method 04/14/22 11:14 O2 Flow Rate 2 04/09/22 15:53 BMI result Body Mass Index 27.4 Const: Other: General: AO X 3, no acute distress Resp: CTA bilateral CVS: S1,S2,RRR GI: +BS, NT, no distention Skin: No rash, bruses on arms, legs Neuro: motor grossly intact Psych: appropriate affect Objective Data Active Medications Acetaminophen (Acetaminophen 325 Mg Tablet) 650 mg PO Q6H PRN PRN Reason: Pain, Mild (Pain Scale 1-3) Last Admin: 04/13/22 17:02 Dose: 650 mg Documented By: HUSEYIN Albuterol Sulfate (Albuterol Sulfate (0.083%) 2.5 Mg/3 Ml Vial.Neb) 2.5 mg INHALE Q4H PRN PRN Reason: Wheezing Aspirin (Aspirin Enteric Coated 81 Mg Tablet.) 81 mg PO DAILY [facility] Last Admin: 04/14/22 08:09 Dose: 81 mg Documented By: HUSEYIN Atorvastatin Calcium (Atorvastatin Calcium 80 Mg Tablet) 80 mg PO DAILY [facility] Last Admin: 04/14/22 08:08 Dose: 80 mg Documented By: HUSEYIN Benzonatate (Benzonatate 100 Mg Capsule) 100 mg PO TID PRN PRN Reason: Cough Last Admin: 04/11/22 20:55 Dose: 100 mg Documented By: GAGANDEEP Dextrose (Dextrose 50 % 25 Gm/50 Ml Syringe) 25 gm IVPUSH Q15M PRN; Protocol PRN Reason: per Hypoglycemia Standing Ord. Enoxaparin Sodium (Enoxaparin Sodium 40 Mg/0.4 Ml Syringe) 40 mg SUBCUT Q24H [facility] Last Admin: 04/13/22 11:49 Dose: 40 mg Documented By: HUSEYIN Glucose (Glucose Gel 15 Gm Gel..Gram.) 15 gm PO Q15M PRN; Protocol PRN Reason: per Hypoglycemia Standing Ord. Insulin Human Lispro (Insulin Lispro 100 Unit/Ml 3 Ml Vial) 0 unit SUBCUT QIDACHS [facility]; Protocol Last Admin: 04/14/22 08:08 Dose: 6 unit Documented By: HUSEYIN Lisinopril (Lisinopril 40 Mg Tablet) 40 mg PO DAILY [facility]; Protocol Last Admin: 04/14/22 08:08 Dose: 40 mg Documented By: HUSEYIN Metoprolol Tartrate (Metoprolol Tartrate 50 Mg Tablet) 50 mg PO BID [facility]; Protocol Last Admin: 04/14/22 08:11 Dose: Not Given Documented By: HUSEYIN Non-Admin Reason: Decreased Heart Rate Nystatin (Nystatin Powder 15 Gm Bottle) 1 appl TOPICAL BID [facility]; Protocol Last Admin: 04/14/22 08:19 Dose: 1 appl Documented By: HUSEYIN Omeprazole (Omeprazole 20 Mg Capsule.) 20 mg PO DAILY@0630 [facility] Last Admin: 04/14/22 06:13 Dose: 20 mg Documented By: FERNANDO Ondansetron HCl (Ondansetron Hcl 4 Mg/2 Ml Vial) 4 mg IVPUSH Q8H PRN PRN Reason: Nausea and Vomiting Pharmacy Consult (Consult Rx Perform Med Rec) 1 each MISCELLANE ONCE PRN PRN Reason: Consult order Pharmacy Consult (Consult Rx Perform Med Rec) 1 each MISCELLANE ONCE PRN PRN Reason: Consult order Sodium Chloride (0.9 % Sodium Chloride Flush 3 Ml Syringe) 3 ml IVFLUSH QSHIFT [facility] Last Admin: 04/14/22 08:09 Dose: 3 ml Documented By: HUSEYIN Vitamin D (Cholecalciferol (Vitamin D3) 10 Mcg Tablet) 10 mcg PO DAILY [facility] Last Admin: 04/14/22 08:08 Dose: 10 mcg Documented By: HUSEYIN Labs CBC & Chem 7: 04/13/22 08:34 04/13/22 07:14 Labs: Laboratory Results - last 24 hr 04/13/22 04/13/22 04/13/22 11:10 16:23 20:02 POC Glucose 203 H 280 H 305 H 04/14/22 07:11 POC Glucose 253 H Assessment and Plan (1) Frostbite: Status: Acute (2) Rhabdomyolysis: Status: Acute (3) Stress-induced cardiomyopathy: Status: Acute (4) NSTEMI (non-ST elevated myocardial infarction): Status: Acute (5) Hypothermia: Status: Acute (6) Respiratory syncytial virus (RSV): Status: Acute Plan 89-year-old female with history of dtq-imbdcfh-wcxezsota type 2 diabetes, hypertension, paroxysmal atrial fibrillation not on anticoagulation, and chronic low back pain admitted for environmental hypothermia with frostbite and secondary rhabdo and NSTEMI with probable stress induced cardiomyopathy. after mechanical fall outside in early AM, unable to get inside for several hours. Enviromental hypothermia resolved patient sitting in ground outside unable to get up for 5-6 hours. Rewarmed with bear hugger temperature has been stable ranging 97.5-100.2 for about 20 hours. Still intermittently tachycardic to 104, heart rate now 88 VS q4h Frostbite -Given IVF and placed under bear hugger No gangrene. No necrosis Seen by gen surgery, no intervention necessary acute hypoxemic respiratory failure-resolved most likely secondary to stress-induced cardiomyopathy/NSTEMI less likely secondary to RSV given absence of chronic lung disease chest CT negative for any focal consolidation or acute intra pulmonary abnormality NSTEMI EKG showing sinus tach, rate [address]/T-wave abnormalities, no TRISTIN Continue asa, no statin due to muscle pain continue bb change to 25mg BID s/p 48hr heparin iv -Echo shows EF 60-65%, regional WMA in the RCA territory, mild AR, normal RV SP. Given pt is asymptomatic, continue medical management, and will complete outpt pharmacological nuclear stress test and cardiology follow-up in 2 weeks per Cardiology mild acute rhabdomyolysis resolved leukocytosis likely reactive and from steroid abd pain check gi panel, mild, monitor for now RSV infection Hypoxia resolved Albuterol prn q4h. Prednisone 40mg daily x 5 day, D2 -symptomatic management with Robitussin, Tessalon Perles, throat spray -contact precautions nor-nrpiuut-gkqhxihil type 2 diabetes POC glucose diabetic diet Humalog on sliding scale - advised she can have her son bring in her Trulicity.? Will need to go through pharmacy L5 compression fracture age indeterminate, question new pain well controlled osteopenia noted on lower extremity x-rays with new compression fracture L5 continue vitamin-D -follow-up outpatient with PCP hypertension continue lisinopril and metoprolol paroxysmal atrial fibrillation-rate controlled not on anticoagulation due to history of lower GI bleed continue metoprolol DVT prophylaxis- lovenox DNR/DNI reason for continued hospitalization:still feeling lousy, abd pain Quality Stroke Does the patient have a stroke diagnosis?: No VTE Prior VTE?: No VTE Risk Level:: Medical - moderate - high VTE Device Contraindication: Treatment Not Indicated VTE Drug Contraindication: N/A - Med Ordered
[2022-04-14 11:48] LABS: Glucose, Whole Blood 228 mg/dL (60-115)
[2022-04-14] MEDS: Enoxaparin Sodium 40 MG/0.4 ML SYRINGE SUBCUT (12:15)
[2022-04-14 15:44] VITALS: BP 142/56; PULSE 62; RESP 16; TEMP 36.2; O2SAT 98
[2022-04-14 16:29] LABS: Glucose, Whole Blood 306 mg/dL (60-115)
[2022-04-14 19:17] VITALS: BP 142/44; PULSE 48; RESP 16; TEMP 36.5; O2SAT 96
[2022-04-14 19:46] LABS: Glucose, Whole Blood 319 mg/dL (60-115)
[2022-04-14] MEDS: Acetaminophen 325 MG TABLET 650 MG PO (20:08)
[2022-04-14 23:41] VITALS: BP 162/76; RESP 18; TEMP 37; O2SAT 96
[2022-04-15 03:41] VITALS: BP 154/68; PULSE 76; RESP 20; TEMP 37.2; O2SAT 95
[2022-04-15] MEDS: Omeprazole 20 MG CAPSULE.DR PO (05:33)
[2022-04-15 07:41] VITALS: BP 120/78; PULSE 51; RESP 18; TEMP 36.1; O2SAT 97
[2022-04-15 07:50] LABS: Glucose, Whole Blood 217 mg/dL (60-115)
[2022-04-15] MEDS: Insulin Lispro 100 UNIT/ML 3 ML VIAL SUBCUT ×4 (08:03→20:30)
[2022-04-15] MEDS: 0.9 % Sodium Chloride Flush 3 ML SYRINGE IVFLUSH ×2 (08:04→16:53)
[2022-04-15] MEDS: lisinopriL 40 MG TABLET PO (08:04)
[2022-04-15] MEDS: Cholecalciferol (Vitamin D3) 10 MCG TABLET PO (08:04)
[2022-04-15] MEDS: Aspirin Enteric Coated 81 MG TABLET.DR PO (08:04)
[2022-04-15] MEDS: Nystatin Powder 15 GM BOTTLE 1 APPL TOPICAL ×2 (08:16→20:30)
--- NOTE | 2022-04-15 09:58 | P.PNIM_ITS ---
Subjective Subjective Date of Service: 04/15/22 Interval History: cc: fell outside in cold interval history: feels better today Review of Systems no fever no chills Physical Exam Vital Signs: Vital Signs: Last Vital Signs Temp 97 F 04/15/22 07:41 Pulse 51 04/15/22 07:41 Resp 18 04/15/22 07:41 BP 120/78 04/15/22 07:41 Pulse Ox 97 04/15/22 07:41 O2 Del Method 04/15/22 07:41 O2 Flow Rate 2 04/09/22 15:53 BMI result Body Mass Index 27.4 Const: Other: General: AO X 3, no acute distress Resp: CTA bilateral CVS: S1,S2,RRR GI: +BS, NT, no distention Skin: No rash, bruses on arms, legs Neuro: motor grossly intact Psych: appropriate affect Objective Data Active Medications Acetaminophen (Acetaminophen 325 Mg Tablet) 650 mg PO Q6H PRN PRN Reason: Pain, Mild (Pain Scale 1-3) Last Admin: 04/14/22 20:08 Dose: 650 mg Documented By: STANTON Albuterol Sulfate (Albuterol Sulfate (0.083%) 2.5 Mg/3 Ml Vial.Raj) 2.5 mg INHALE Q4H PRN PRN Reason: Wheezing Aspirin (Aspirin Enteric Coated 81 Mg Tablet.) 81 mg PO DAILY [facility] Last Admin: 04/15/22 08:04 Dose: 81 mg Documented By: HUSEYIN Benzonatate (Benzonatate 100 Mg Capsule) 100 mg PO TID PRN PRN Reason: Cough Last Admin: 04/11/22 20:55 Dose: 100 mg Documented By: TUMASY Dextrose (Dextrose 50 % 25 Gm/50 Ml Syringe) 25 gm IVPUSH Q15M PRN; Protocol PRN Reason: per Hypoglycemia Standing Ord. Enoxaparin Sodium (Enoxaparin Sodium 40 Mg/0.4 Ml Syringe) 40 mg SUBCUT Q24H [facility] Last Admin: 04/14/22 12:15 Dose: 40 mg Documented By: HUSEYIN Glucose (Glucose Gel 15 Gm Gel..Gram.) 15 gm PO Q15M PRN; Protocol PRN Reason: per Hypoglycemia Standing Ord. Insulin Human Lispro (Insulin Lispro 100 Unit/Ml 3 Ml Vial) 0 unit SUBCUT QIDACHS [facility]; Protocol Last Admin: 04/15/22 08:03 Dose: 4 unit Documented By: HUSEYIN Lisinopril (Lisinopril 40 Mg Tablet) 40 mg PO DAILY [facility]; Protocol Last Admin: 04/15/22 08:04 Dose: 40 mg Documented By: HUSEYIN Metoprolol Tartrate (Metoprolol Tartrate 50 Mg Tablet) 50 mg PO BID [facility]; Protocol Last Admin: 04/15/22 08:05 Dose: Not Given Documented By: HUSEYIN Non-Admin Reason: Decreased Heart Rate Nystatin (Nystatin Powder 15 Gm Bottle) 1 appl TOPICAL BID [facility]; Protocol Last Admin: 04/15/22 08:16 Dose: 1 appl Documented By: HUSEYIN Omeprazole (Omeprazole 20 Mg Capsule.Dr) 20 mg PO DAILY@0630 [facility] Last Admin: 04/15/22 05:33 Dose: 20 mg Documented By: MATTHEW-AKJ Ondansetron HCl (Ondansetron Hcl 4 Mg/2 Ml Vial) 4 mg IVPUSH Q8H PRN PRN Reason: Nausea and Vomiting Pharmacy Consult (Consult Rx Perform Med Rec) 1 each MISCELLANE ONCE PRN PRN Reason: Consult order Pharmacy Consult (Consult Rx Perform Med Rec) 1 each MISCELLANE ONCE PRN PRN Reason: Consult order Sodium Chloride (0.9 % Sodium Chloride Flush 3 Ml Syringe) 3 ml IVFLUSH QSHIFT [facility] Last Admin: 04/15/22 08:04 Dose: 3 ml Documented By: HUSEYIN Vitamin D (Cholecalciferol (Vitamin D3) 10 Mcg Tablet) 10 mcg PO DAILY [facility] Last Admin: 04/15/22 08:04 Dose: 10 mcg Documented By: HUSEYIN Labs CBC & Chem 7: 04/13/22 08:34 04/13/22 07:14 Labs: Laboratory Results - last 24 hr 04/14/22 04/14/22 04/14/22 11:13 16:24 19:37 POC Glucose 228 H 306 H 319 H 04/15/22 07:36 POC Glucose 217 H Microbiology Microbiology Results: Microbiology 04/09/22 12:01 Blood Culture - Final Blood - Venous No growth after 5 days. 04/09/22 11:26 Blood Culture - Final Blood - Venous No growth after 5 days. Assessment and Plan (1) Frostbite: Status: Acute (2) Rhabdomyolysis: Status: Acute (3) Stress-induced cardiomyopathy: Status: Acute (4) NSTEMI (non-ST elevated myocardial infarction): Status: Acute (5) Hypothermia: Status: Acute (6) Respiratory syncytial virus (RSV): Status: Acute Plan 89-year-old female with history of fxs-djljxfk-ensxihlhh type 2 diabetes, hypertension, paroxysmal atrial fibrillation not on anticoagulation, and chronic low back pain admitted for environmental hypothermia with frostbite and secondary rhabdo and NSTEMI with probable stress induced cardiomyopathy. after mechanical fall outside in early AM, unable to get inside for several hours. Enviromental hypothermia, from being exposed to cold outside, went to let dog and felt weak coming back, was there for 5 t0 7 hours and finally dragged herself in, resolved Frostbite--treated with IVF, warming blanket No gangrene. No necrosis Seen by gen surgery, no intervention necessary acute hypoxemic respiratory failure-resolved most likely secondary to stress-induced cardiomyopathy/NSTEMI less likely secondary to RSV given absence of chronic lung disease chest CT negative for any focal consolidation or acute intra pulmonary a bnormality NSTEMI EKG showing sinus tach, rate [address]/T-wave abnormalities, no TRISTIN Continue asa, no statin due to muscle pain continue bb change to 25mg BID s/p 48hr heparin iv -Echo shows EF 60-65%, regional WMA in the RCA territory, mild AR, normal RV SP. Given pt is asymptomatic, continue medical management, and will complete outpt pharmacological nuclear stress test and cardiology follow-up in 2 weeks per Cardiology mild acute rhabdomyolysis resolved leukocytosis likely reactive and from steroid abd pain check gi panel, mild, monitor for now RSV infection Hypoxia resolved Albuterol prn q4h. Prednisone 40mg daily x 5 day, D2 -symptomatic management with Robitussin, Tessalon Perles, throat spray -contact precautions cza-[id number]-[id number] type 2 diabetes POC glucose diabetic diet Humalog on sliding scale - advised she can have her son bring in her Trulicity.? Will need to go through pharmacy L5 compression fracture age indeterminate, question new pain well controlled osteopenia noted on lower extremity x-rays with new compression fracture L5 continue vitamin-D -follow-up outpatient with PCP hypertension continue lisinopril and metoprolol paroxysmal atrial fibrillation-rate controlled not on anticoagulation due to history of lower GI bleed continue metoprolol DVT prophylaxis- lovenox DNR/DNI PT to reassess for rehab reason for continued hospitalization:still feeling lousy, abd pain Quality Stroke Does the patient have a stroke diagnosis?: No VTE Prior VTE?: No VTE Risk Level:: Medical - moderate - high VTE Device Contraindication: Treatment Not Indicated VTE Drug Contraindication: N/A - Med Ordered
[2022-04-15 11:44] VITALS: BP 112/56; PULSE 77; RESP 18; TEMP 36.4; O2SAT 95
[2022-04-15 11:59] LABS: Glucose, Whole Blood 182 mg/dL (60-115)
[2022-04-15] MEDS: Enoxaparin Sodium 40 MG/0.4 ML SYRINGE SUBCUT (12:11)
[2022-04-15 12:32] VITALS: BP 112/56; PULSE 77; O2SAT 95
[2022-04-15 15:44] LABS: Glucose, Whole Blood 256 mg/dL (60-115)
[2022-04-15 15:47] VITALS: BP 154/70; PULSE 57; RESP 19; TEMP 36.2; O2SAT 95
--- NOTE | 2022-04-15 15:52 | MHC.CM.PN ---
pt is ready for dc facilities are asking for pt to be 10 to 15 days post rsv diagnosis
[2022-04-15 20:21] LABS: Glucose, Whole Blood 237 mg/dL (60-115)
[2022-04-15] MEDS: Metoprolol Tartrate 50 MG TABLET PO (20:30)
[2022-04-16] VITALS: BP 145/63; PULSE 67; RESP 18; TEMP 36.8; O2SAT 98
[2022-04-16] MEDS: 0.9 % Sodium Chloride Flush 3 ML SYRINGE IVFLUSH ×2 (02:31→08:33)
[2022-04-16 03:26] VITALS: BP 164/79; PULSE 58; RESP 18; TEMP 36.9; O2SAT 95
[2022-04-16] MEDS: Omeprazole 20 MG CAPSULE.DR PO (05:27)
[2022-04-16 07:06] VITALS: BP 160/76; PULSE 59; RESP 17; TEMP 36.8; O2SAT 97
[2022-04-16 07:07] LABS: Glucose, Whole Blood 197 mg/dL (60-115)
[2022-04-16 08:29] VITALS: BP 160/76; PULSE 59; O2SAT 97
[2022-04-16] MEDS: lisinopriL 40 MG TABLET PO (08:33)
[2022-04-16] MEDS: Cholecalciferol (Vitamin D3) 10 MCG TABLET PO (08:33)
[2022-04-16] MEDS: Aspirin Enteric Coated 81 MG TABLET.DR PO (08:33)
[2022-04-16] MEDS: Metoprolol Tartrate 50 MG TABLET PO (08:33)
[2022-04-16] MEDS: Insulin Lispro 100 UNIT/ML 3 ML VIAL SUBCUT ×2 (08:34→12:15)
[2022-04-16] MEDS: Nystatin Powder 15 GM BOTTLE 1 APPL TOPICAL (08:41)
--- NOTE | 2022-04-16 09:18 | P.PNIM_ITS ---
Subjective Subjective Date of Service: 04/16/22 Interval History: cc: fell outside in cold interval history: feels better today, no new issues Review of Systems no fever no chills Physical Exam Vital Signs: Vital Signs: Last Vital Signs Temp 98.2 F 04/16/22 07:06 Pulse 59 04/16/22 08:29 Resp 17 04/16/22 07:06 BP 160/76 H 04/16/22 08:29 Pulse Ox 97 04/16/22 08:29 O2 Del Method 04/16/22 07:06 O2 Flow Rate 2 04/09/22 15:53 BMI result Body Mass Index 27.4 Const: Other: General: AO X 3, no acute distress Resp: CTA bilateral CVS: S1,S2,RRR GI: +BS, NT, no distention Skin: No rash, bruses on arms, legs Neuro: motor grossly intact Psych: appropriate affect Objective Data Active Medications Acetaminophen (Acetaminophen 325 Mg Tablet) 650 mg PO Q6H PRN PRN Reason: Pain, Mild (Pain Scale 1-3) Last Admin: 04/14/22 20:08 Dose: 650 mg Documented By: STANTON Albuterol Sulfate (Albuterol Sulfate (0.083%) 2.5 Mg/3 Ml Vial.Raj) 2.5 mg INHALE Q4H PRN PRN Reason: Wheezing Aspirin (Aspirin Enteric Coated 81 Mg Tablet.) 81 mg PO DAILY [facility] Last Admin: 04/16/22 08:33 Dose: 81 mg Documented By: PHANLCARLA Benzonatate (Benzonatate 100 Mg Capsule) 100 mg PO TID PRN PRN Reason: Cough Last Admin: 04/11/22 20:55 Dose: 100 mg Documented By: TUMASY Dextrose (Dextrose 50 % 25 Gm/50 Ml Syringe) 25 gm IVPUSH Q15M PRN; Protocol PRN Reason: per Hypoglycemia Standing Ord. Enoxaparin Sodium (Enoxaparin Sodium 40 Mg/0.4 Ml Syringe) 40 mg SUBCUT Q24H [facility] Last Admin: 04/15/22 12:11 Dose: 40 mg Documented By: FOGARTB Glucose (Glucose Gel 15 Gm Gel..Gram.) 15 gm PO Q15M PRN; Protocol PRN Reason: per Hypoglycemia Standing Ord. Insulin Human Lispro (Insulin Lispro 100 Unit/Ml 3 Ml Vial) 0 unit SUBCUT QIDACHS [facility]; Protocol Last Admin: 04/16/22 08:34 Dose: 2 unit Documented By: ROMMEL Lisinopril (Lisinopril 40 Mg Tablet) 40 mg PO DAILY [facility]; Protocol Last Admin: 04/16/22 08:33 Dose: 40 mg Documented By: ROMMEL Metoprolol Tartrate (Metoprolol Tartrate 50 Mg Tablet) 50 mg PO BID [facility]; Protocol Last Admin: 04/16/22 08:33 Dose: 50 mg Documented By: ROMMEL Nystatin (Nystatin Powder 15 Gm Bottle) 1 appl TOPICAL BID [facility]; Protocol Last Admin: 04/16/22 08:41 Dose: 1 appl Documented By: ROMMEL Omeprazole (Omeprazole 20 Mg Capsule.Dr) 20 mg PO DAILY@0630 [facility] Last Admin: 04/16/22 05:27 Dose: 20 mg Documented By: MATTHEW-AKJ Ondansetron HCl (Ondansetron Hcl 4 Mg/2 Ml Vial) 4 mg IVPUSH Q8H PRN PRN Reason: Nausea and Vomiting Pharmacy Consult (Consult Rx Perform Med Rec) 1 each MISCELLANE ONCE PRN PRN Reason: Consult order Pharmacy Consult (Consult Rx Perform Med Rec) 1 each MISCELLANE ONCE PRN PRN Reason: Consult order Sodium Chloride (0.9 % Sodium Chloride Flush 3 Ml Syringe) 3 ml IVFLUSH QSHIFT [facility] Last Admin: 04/16/22 08:33 Dose: 3 ml Documented By: ROMMEL Vitamin D (Cholecalciferol (Vitamin D3) 10 Mcg Tablet) 10 mcg PO DAILY [facility] Last Admin: 04/16/22 08:33 Dose: 10 mcg Documented By: ROMMEL Labs CBC & Chem 7: 04/13/22 08:34 04/13/22 07:14 Labs: Laboratory Results - last 24 hr 04/15/22 04/15/22 04/15/22 11:41 15:29 20:17 POC Glucose 182 H 256 H 237 H 04/16/22 06:52 POC Glucose 197 H Assessment and Plan (1) Atrial tachycardia: Status: Acute (2) Hypertension: Status: Acute Plan 89-year-old female with history of [id number]-omdtbsdic type 2 diabetes, hypertension, paroxysmal atrial fibrillation not on anticoagulation, and chronic low back pain admitted for environmental hypothermia with frostbite and secondary rhabdo and NSTEMI with probable stress induced cardiomyopathy. after mechanical fall outside in early AM, unable to get inside for several hours. Enviromental hypothermia, from being exposed to cold outside, went to let dog and felt weak coming back, was there for 5 t0 7 hours and finally dragged herself in, resolved Frostbite--treated with IVF, warming blanket No gangrene. No necrosis Seen by gen surgery, no intervention necessary acute hypoxemic respiratory failure-resolved most likely secondary to stress-induced cardiomyopathy/NSTEMI less likely secondary to RSV given absence of chronic lung disease chest CT negative for any focal consolidation or acute intra pulmonary ab normality NSTEMI EKG showing sinus tach, rate [address]/T-wave abnormalities, no TRISTIN Continue asa, no statin due to muscle pain continue bb change to 25mg BID s/p 48hr heparin iv -Echo shows EF 60-65%, regional WMA in the RCA territory, mild AR, normal RV SP. Given pt is asymptomatic, continue medical management, and will complete outpt pharmacological nuclear stress test and cardiology follow-up in 2 weeks per Cardiology mild acute rhabdomyolysis resolved leukocytosis likely reactive and from steroid abd pain check gi panel, mild, monitor for now RSV infection Hypoxia resolved Albuterol prn q4h. Prednisone 40mg daily x 5 day, D2 -symptomatic management with Robitussin, Tessalon Perles, throat spray -contact precautions [id number] type 2 diabetes POC glucose diabetic diet Humalog on sliding scale - advised she can have her son bring in her Trulicity.? Will need to go through pharmacy L5 compression fracture age indeterminate, question new pain well controlled osteopenia noted on lower extremity x-rays with new compression fracture L5 continue vitamin-D -follow-up outpatient with PCP hypertension continue lisinopril and metoprolol paroxysmal atrial fibrillation-rate controlled not on anticoagulation due to history of lower GI bleed continue metoprolol DVT prophylaxis- lovenox DNR/DNI reason for continued hospitalization:still feeling lousy, abd pain, awaiting sob Quality Stroke Does the patient have a stroke diagnosis?: No VTE Prior VTE?: No VTE Risk Level:: Medical - moderate - high VTE Device Contraindication: Treatment Not Indicated VTE Drug Contraindication: N/A - Med Ordered
[2022-04-16 10:53] LABS: Glucose, Whole Blood 171 mg/dL (60-115)
[2022-04-16 11:00] VITALS: BP 155/72; PULSE 77; RESP 18; TEMP 36.6; O2SAT 98
[2022-04-16] MEDS: Enoxaparin Sodium 40 MG/0.4 ML SYRINGE SUBCUT (12:14)
--- NOTE | 2022-04-16 12:26 | MHC.CM.PN ---
pt o be dcd today at 2:30 to [facility]
--- NOTE | 2022-04-16 13:49 | PM.DS ---
DS: Providers Provider Date of Service: 04/14/22 Date of admission: 04/09/22 18:12 Primary care physician: Unknown Physician Consults: 04/09/22 18:12 Consult to General Surgery Routine Consulting Provider: Félix Womack Reason for consultation: frostbite ble 04/09/22 18:36 Consult to Cardiology Routine Consulting Provider: Pete Herring Reason for consultation: NSTEMI, stress induced cardiomyopathy DS: Diagnosis Discharge Diagnosis (1) Frostbite: Status: Acute (2) Rhabdomyolysis: Status: Acute (3) Stress-induced cardiomyopathy: Status: Acute (4) NSTEMI (non-ST elevated myocardial infarction): Status: Acute (5) Hypothermia: Status: Acute (6) Respiratory syncytial virus (RSV): Status: Acute DS: Summary Hospital Course Hospital Course: Admission HPI Chief Complaint: Fall, cold exposure 89-year-old female with history of fwc-bftsujg-pqrkzgnef type 2 diabetes, hypertension, paroxysmal atrial fibrillation not on anticoagulation, and chronic low back pain with who presented to the ER early this morning via EMS. She states she went outside around 3am to let her dog back into the house and when she bent forward was unable to extend her torso upright so she sat herself on the ground and was unable to get back up. She was wearing a fleece housecoat but was outside seated for about 5-6 hours before she was able to pull herself to a phone to call EMS. There was no prodrome. No lightheadedness, palpitations, blurred vision, diplopia, presyncope, syncope, or chest pain. No seizure activity. Denies any head strike or loss of consciousness.? She is not on any blood thinners. On arrival, EMS did note the patient to be incontinent of stool. Patient does state she has been feeling unwell for several days with sore throat and rhinorrhea and yesterday developed cough. States her son, Isidro, was sick last week. She is also now reporting myalgia. NO fevers, chills, sinus pressure, headache, abdominal pain, nausea, vomiting. On arrival, patient developed hypothermia 93.8 improved to 98.8 under the [facility] [employer] but then dropped again to 93.2 with subsequent improvement to 95.5.? She was tachycardic to 106 and initially hypertensive of 207/84 165/96.? She was hypoxic on arrival at 85% and placed on supplemental O2 with nasal cannula.? WBC 22 with 10% bands.? Creatinine 1.39, BUN 38, sodium 138, potassium 5.4, chloride 101, CO2 21, A/G 21, glucose 461.? Initial lactic acid 6.2, improved to 2.4 after 2 hours, and 2.0 after 4 hours following 2 L IV NS. CK 623. Initiral Trop-I 463.7, repeat pending. Initial EKG showed Sinus tachy, rate 108 with PVCs. Repeat showed NSR, rate [address]/Twave abnormality.? Head CT and cervical spine CT negative for any acute intracranial process and without any visible fractures, dislocation, or subluxation.? Chest CT negative for any acute cardiopulmonary disease.? Abdomen/pelvis CT showed moderate L5 vertebral body compression fraction, likely recent but without any other acute abdominal or pelvic findings.? There is diffuse osteopenia of the bilateral feet and ankle as well as bilateral lower extremities noted on x-rays of the knees, feet, and ankles bilaterally without any visible fractures. In ED, given 2L NS, Tdap, 1gm ceftriaxone, and dexamethasone.? Pt to be admitted for frostbite with environmental hypothermia and rhabdo.? She has also tested positive for RSV. Hospital course: Hypothermia from exposure outside, fall and not been able to get up, this cause some frosbite but no gangrene and no necrosis..Treated with warm fluid, and warming blanket and has fully recovered from the hypothermia. Acute hypoxemic respiratory failure-resolved due to RSV with viral bronchitis, CT chest no consolidatonn, has been treated with bronchodilators, steroid, cough medicine as needed and overall feels better NSTEMI EKG showing sinus tach, rate [address]/T-wave abnormalities, no TRISTIN. Treated with ASA, high intensity statin, Metoprolol and 48 hours of statin. -Echo? shows EF 60-65%, regional WMA in the RCA territory, mild AR, normal RV SP. Given ongoing respiraotry symptoms, cardiology will arrange for further outpatient testing with stresss test within 2 weeks mild acute rhabdomyolysis--resolved. leukocytosis likely reactive and from steroid ?RSV --treated symptomatically with bronchidilators and steroid, cough medication, presently without hypoxia and overall feels better [id number]-kgnhrqeyf type 2 diabetes--resme home meds ?L5 compression fracture age indeterminate, question new pain well controlled osteopenia noted on lower extremity x-rays with new compression fracture L5 continue vitamin-D -follow-up outpatient with PCP hypertension continue lisinopril and metoprolol paroxysmal atrial fibrillation-rate controlled not on anticoagulation due to history of lower GI bleed continue metoprolol Time Spent with Patient Time attestation: Total time spent providing and/or coordinating discharge services: Discharge coordination time: Greater than 30 minutes Quality: Safe Use of Opioids Does Pt have an Active Cancer Diagnosis on the Problem List?: No Quality: Stroke Does the patient have a stroke diagnosis?: No Physical Exam Vital Signs: Vital Signs: Selected Entries 04/16/22 11:00 Temperature 97.9 F Pulse Rate 77 Respiratory Rate 18 Blood Pressure 155/72 H Pulse Oximetry 98 Oxygen Delivery Me thod Room Air General: AO X 3, no acute distress Resp: CTA bilateral CVS: S1,S2,RRR GI: +BS, NT, no distention Skin: No rash Neuro: motor grossly intact Psych: appropriate affect DS: Data Data Completed and Pending Labs on day of discharge: Laboratory Results - last 24 hr 04/13/22 04/13/22 04/13/22 08:34 11:10 16:23 WBC 17.7 H RBC 3.04 L Hgb 8.9 L Hct 28.2 L MCV 92.8 MCH 29.3 MCHC 31.6 RDW 14.0 Plt Count 305 MPV 11.0 Absolute Nucleated RBC 0.000 Nucleated RBC % (auto) 0.0 POC Glucose 203 H 280 H 04/13/22 04/14/22 20:02 07:11 WBC RBC Hgb Hct MCV MCH MCHC RDW Plt Count MPV Absolute Nucleated RBC Nucleated RBC % (auto) POC Glucose 305 H 253 H Preliminary micro results at discharge 04/09/22 12:01 Blood Culture - Preliminary Blood - Venous No growth after 48 hours. 04/09/22 11:26 Blood Culture - Preliminary Blood - Venous No growth after 48 hours. Discharge Plan Discharge Anticipated Discharge Date/Time: 04/16/22 13:46 Patient Disposition: Xfer SNF Discharge Diagnosis: Frostbite Referrals: radha [Other] - 1 Week Physician,Unknown J [Primary Care Provider] - 1 Week Discharge Medications: New aspirin 81 mg Tablet,Delayed Release (Dr/Ec) 81 mg PO DAILY Qty: 30 0RF guaifenesin 100 mg/5 mL liquid 100 mg PO Q6H PRN (Reason: cough) Qty: 500 0RF Continued Trulicity 0.75 mg/0.5 mL Pen Injector 0.75 mg SUBCUT TU@1000 metoprolol succinate 50 mg Tablet Extended Release 24 Hr 50 mg PO DAILY lisinopril 40 mg Tablet 40 mg PO DAILY cholecalciferol (vitamin D3) 10 mcg (400 unit) Capsule 10 mcg PO DAILY Discharge Orders: Discharge Order (Routine); Ordered 04/16/22 Ordered By: Joe Alford Diet: Diabetic diet Activity on Discharge: As tolerated Stand Alone Forms: Patient Portal Discharge page Care Plan Goals: full recovery from Health Concerns: RSV fall heart attack Plan of Treatment: Take all your medication as directed Follow up with the armoring machine operator office in 2 weeks for stress test New medication includ: Asprin Assessment: as above
[2022-04-16 14:30] LABS: COVID-19 Test Negative (Negative); IDNOW Serial# 16C4AD1C
== END 2022-04-16 15:15 | disposition skilled nursing facility (03) | DRG 922 ==
LOC: HO.ED 16:02 → HO.EDOVER 18:20 → HO.IMC 19:48
PROVIDERS: Internal Medicine; Admitting Provider Physician Assistant; Emergency Provider Emergency Medicine Emergency Medical Services; Visit Provider Internal Medicine
DX: T68.XXXA Hypothermia, initial encounter (principal); I21.4 Non-ST elevation (NSTEMI) myocardial infarction; J96.01 Acute respiratory failure with hypoxia; T33.72XA Superficial frostbite of left knee and lower leg, initial encounter; T33.71XA Superficial frostbite of right knee and lower leg, initial encounter; M62.82 Rhabdomyolysis; M48.56XA Collapsed vertebra, not elsewhere classified, lumbar region, initial encounter for fracture; I51.81 Takotsubo syndrome; J20.5 Acute bronchitis due to respiratory syncytial virus; Z66 Do not resuscitate; I48.0 Paroxysmal atrial fibrillation; E78.5 Hyperlipidemia, unspecified; I10 Essential (primary) hypertension; M85.89 Other specified disorders of bone density and structure, multiple sites; T38.0X5A Adverse effect of glucocorticoids and synthetic analogues, initial encounter; D72.829 Elevated white blood cell count, unspecified; E11.9 Type 2 diabetes mellitus without complications; X31.XXXA Exposure to excessive natural cold, initial encounter; G89.29 Other chronic pain; M54.50 Low back pain, unspecified; Z20.822 Contact with and (suspected) exposure to COVID-19; Z79.899 Other long term (current) drug therapy
CPT/HCPCS: 0241U; 36415; 70450; 71045; 71250; 72125; 73560; 73610; 73630; 74176; 80048; 80076; 80307; 81001; 82550; 82803; 82947; 83605; 83690; 84443; 84484; 85007; 85025; 85027; 85610; 85730; 87040; 87635; 90715; 93005; 93306; 97116; 97162; 97530; 99285; J0696; J1100; J1650; Q9957

== ENCOUNTER 2022-06-08 22:04 | Emergency (ER) | payer MEDICARE, SELFPAY ==
--- NOTE | 2022-06-08 22:13 | ECG_ITS ---
Test Reason : high K Blood Pressure : / mmHG Vent. Rate : 074 BPM Atrial Rate : 074 BPM P-R Int : 184 ms QRS Dur : 082 ms QT Int : 366 ms P-R-T Axes : 019 020 029 degrees QTc Int : 406 ms Normal sinus rhythm with sinus arrhythmia Normal ECG When compared with ECG of 10-APR-2022 11:09, No significant change was found Referred By: Jack Long Electronically Signed By:Miguel Gutierrez
--- NOTE | 2022-06-08 22:18 | ED.GENADULT ---
HPI - General Adult General Chief complaint: General Medical Stated complaint: From rehab, abnormal lab per EMS Time Seen by Provider: 06/08/22 22:08 Source: patient Mode of arrival: EMS Limitations: no limitations History of Present Illness HPI narrative: Patient 86 years old with history of hypertension, diabetes, paroxysmal AFib, spinal stenosis, CKD with creatinine of 1.07 baseline. [facility] as lab showed elevated potassium of 6.2 and creatinine of 1.4 labs were repeated again and this time potassium was 6.6 and creatinine 1.37. Patient denies any complaints no chest pain no palpitation no change in medication not eating any food continue high potassium Related Data Home Medications Medication Instructions Recorded Confirmed cholecalciferol (vitamin D3) 10 10 mcg PO DAILY 04/09/22 04/09/22 mcg (400 unit) capsule dulaglutide 0.75 mg/0.5 mL 0.75 mg subcut TU@1000 04/09/22 04/09/22 subcutaneous pen injector (Trulicity) lisinopril 40 mg tablet 40 mg PO DAILY 04/09/22 04/09/22 metoprolol succinate 50 mg 50 mg PO DAILY 04/09/22 04/09/22 tablet,extended release 24 hr Previous Rx's Medication Instructions Recorded aspirin 81 mg tablet,delayed 81 mg PO DAILY #30 tabs 04/14/22 release guaifenesin 100 mg/5 mL oral liquid 100 mg (5 mL) PO Q6H PRN cough 04/14/22 #500 mL Allergies Allergy/AdvReac Type Severity Reaction Status Date / Time atorvastatin [From Lipitor] AdvReac Joint Pain Verified 04/09/22 10:02 Review of Systems Review of Systems: Yes all other systems are reviewed and are negative [facility] Past Medical History Medical History Hypertension Paroxysmal atrial fibrillation Stress-induced cardiomyopathy Type 2 diabetes Surgical History History of lumbar laminectomy Family History Family History Father Pulmonary embolism Mother Dementia Social History Social History Household Members: None Housing: House Do you presently have visiting nurse or other home services: Yes (Feet care, meals) Alcohol intake: never Patient Tobacco Use Status: Never used Tobacco Smoked in Last 30 Days: No Use of substances other than those prescribed or required for medical reasons: No Advance Directives: No Advance Directives Information Provided: No service: No Physical Exam ED Vital Signs: Vital Signs - 24 hr 06/08/22 22:23 06/08/22 22:26 06/08/22 22:26 Temperature 98.0 F 98 F 98 F Pulse Rate 72 78 74 Respiratory Rate 16 20 20 Blood Pressure 168/60 H 168/60 H 168/60 H Pulse Oximetry 100 100 100 Oxygen Delivery Method Room Air Room Air Room Air 06/08/22 23:37 Temperature 98.3 F Pulse Rate 64 Respiratory Rate 16 Blood Pressure 163/43 H Pulse Oximetry 98 Oxygen Delivery Method Room Air BMI result Body Mass Index 27.0 Appearance: Alert. Oriented X3. No acute distress. Eyes: PERRLA, No Nystagmus ENT: Pharynx normal. Oral Mucosa moist Neck: Normal inspection. Neck supple. CVS: Normal heart rate and rhythm. Pulses normal. Respiratory: No respiratory distress. Equal air entry bilateral, no wheezing/rales/rhonchi Abdomen: Soft and nontender. Bowel sounds are present, no mass palpable, no CVA tenderness Skin: Skin warm and dry. Normal skin color. Normal skin turgor. Extremities: No lower extremity edema. No calf tenderness Neuro: Oriented X 3. No motor deficit. No sensory deficit.No cerebellar signs , cranial nerves II-XII intact Medications Administered Discontinued Medications Generic Name Dose Route Start Last Admin Trade Name Freq PRN Reason Stop Dose Admin Sodium Chloride 1,000 mls @ 999 mls/hr 06/08/22 23:14 06/09/22 00:53 Ns IV 06/09/22 00:14 Infused .Q1H1M ONE Infusion Calcium Gluconate 1 gm in 50 mls @ 50 mls/hr 06/08/22 23:14 06/09/22 00:52 Calcium Gluconate IV 06/09/22 00:13 Infused ONCE ONE Infusion Sodium Zirconium Cyclosilicate 10 gm 06/08/22 22:30 06/08/22 22:38 Sodium Zirconium Cyclosilicate 10 Gm Powd.Pack PO 06/08/22 22:31 10 gm ONCE ONE Administration Medical Decision Making Medical Decision Making MDM Narrative: Patient with incidental high potassium level checked in prison twice last potassium level was 6.6 EKG shows tall T-waves etiology is not very clear patient does have CKD with baseline creatinine of 1.3 at prison will give Lokelma repeat check the potassium level again Labs showed potassium level of 5.6 patient was given Lokelma and calcium gluconate advised to recheck potassium in 2 days Lab Data [facility] Lab Attestation statement: I reviewed the patient's lab results. 06/08/22 22:34 06/08/22 22:34 Labs: Lab Results 06/08/22 06/08/22 Range/Units 22:34 22:34 WBC 6.9 (4.8-10.8) X10*3/uL RBC 3.33 L (4.20-5.50) X10*6/uL Hgb 9.9 L (12.0-16.0) g/dl Hct 31.2 L (37.0-47.0) % MCV 93.7 (80.0-98.0) fL MCH 29.7 (27.0-33.0) pg MCHC 31.7 (31.0-35.0) g/dl RDW 14.4 (11.0-16.0) % Plt Count 366 (160-400) X10*3/uL MPV 9.2 L (9.4-12.3) fL Immature Gran % (Auto) 0.3 (0.0-0.4) % Neut % (Auto) 66.9 (45-73) % Lymph % (Auto) 20.8 (20-40) % Emmons % (Auto) 8.2 (2-11) % Eos % (Auto) 2.9 (0-4) % Baso % (Auto) 0.9 (0-2) % Lymph # (Auto) 1.4 (1.2-4.9) X10*3/uL Emmons # (Auto) 0.6 (0.1-1.2) X10*3/uL Eos # (Auto) 0.2 (0.0-0.4) X10*3/uL Baso # (Auto) 0.1 (0.0-0.2) X10*3/uL Abs Immat Gran (auto) 0.02 (0.00-0.03) X10*3/uL Absolute Neuts (auto) 4.6 (2.0-8.3) x10*3/uL Absolute Nucleated RBC 0.000 (0.0-0.012) X10*3/uL Nucleated RBC % (auto) 0.0 (0.0-0.2) /100WBC Sodium 133 L (135-145) mmol/L Potassium 5.6 H (3.3-5.1) mmol/L Chloride 104 (96-108) mmol/L Carbon Dioxide 23 (22-29) mmol/L Anion Gap 12 (12-20) BUN 40 H (9-16) mg/dL Creatinine 1.58 H (0.5-1.4) mg/dL Estim Creat Clear Calc 23.7 Estimated GFR 31 Random Glucose 201 H (60-115) mg/dL Calcium 9.2 D (8.4-10.2) mg/dL Independent Interpretation I performed an independent interpretation of an: EKG Interpretation: Normal sinus rhythm heart rate 74 beats per minute tented T-waves normal interval normal axis no acute ischemia Discharge Plan Discharge Clinical Impression: Acute hyperkalemia, CKD (chronic kidney disease) Patient Disposition: Xfer [facility] Transfer Details: Potassium level was 5.6 patient was given Lokelma and calcium gluconate. Patient is to drink plenty of fluids Recheck potassium level tomorrow and follow with PCP/manager distribution center Instructions: Chronic Kidney Disease (ED), Hyperkalemia (ED) Prescriptions: No Action Trulicity 0.75 mg/0.5 mL Pen Injector 0.75 mg SUBCUT TU@1000 metoprolol succinate 50 mg Tablet Extended Release 24 Hr 50 mg PO DAILY lisinopril 40 mg Tablet 40 mg PO DAILY cholecalciferol (vitamin D3) 10 mcg (400 unit) Capsule 10 mcg PO DAILY aspirin 81 mg Tablet,Delayed Release (Dr/Ec) 81 mg PO DAILY Qty: 30 0RF guaifenesin 100 mg/5 mL liquid 100 mg PO Q6H PRN (Reason: cough) Qty: 500 0RF Interventions: ED Discharge Assessment Last Done: 06/09/22 01:58 Discharge Date/Time: 06/09/22 01:59
[2022-06-08 22:23] VITALS: BP 168/60; PULSE 72; RESP 16; TEMP 36.7; O2SAT 100
[2022-06-08 22:26] VITALS: BP 168/60; BP 168/70; PULSE 74; PULSE 78; RESP 20; TEMP 36.6; O2SAT 100; BMI 27.0
[2022-06-08] MEDS: Sodium Zirconium Cyclosilicate 10 GM POWD.PACK PO (22:38)
[2022-06-08 22:41] LABS: MANUAL DIFF FLAG NO
[2022-06-08 22:42] LABS: Basophils Absolute Auto 0.1 X10*3/uL (0.0-0.2); Basophils Percent Auto 0.9 % (0-2); Eosinophils Absolute Auto 0.2 X10*3/uL (0.0-0.4); Eosinophils Percent Auto 2.9 % (0-4); Hematocrit 31.2 % (37.0-47.0); Hemoglobin 9.9 g/dl (12.0-16.0); Imm Gran Abs Auto 0.02 X10*3/uL (0.00-0.03); Imm Gran Pct Auto 0.3 % (0.0-0.4); Lymphocytes Absolute Auto 1.4 X10*3/uL (1.2-4.9); Lymphocytes Percent Auto 20.8 % (20-40); Mean Corpuscular HGB Conc 31.7 g/dl (31.0-35.0); Mean Corpuscular Hemoglobin 29.7 pg (27.0-33.0); Mean Corpuscular Volume 93.7 fL (80.0-98.0); Mean Platelet Volume 9.2 fL (9.4-12.3); Monocytes Absolute Auto 0.6 X10*3/uL (0.1-1.2); Monocytes Percent Auto 8.2 % (2-11); Neutrophils Absolute Auto 4.6 x10*3/uL (2.0-8.3); Neutrophils Percent Auto 66.9 % (45-73); Platelet Count 366 X10*3/uL (160-400); Red Blood Count 3.33 X10*6/uL (4.20-5.50); Red Cell Distribution Width 14.4 % (11.0-16.0); White Blood Count 6.9 X10*3/uL (4.8-10.8)
--- NOTE | 2022-06-08 22:43 | PC.NURSE ---
Assessment: Pt is hypertensive on the monitor, Pt is connected to the continu[facility] registered nurse cardiac and it shows NSR with elevated T waves. Pt denies chest pain, N/V and abd pain.
[2022-06-08 22:57] LABS: Anion Gap 12 (12-20); Blood Urea Nitrogen 40 mg/dL (9-16); Calcium 9.2 mg/dL (8.4-10.2); Carbon Dioxide 23 mmol/L (22-29); Chloride 104 mmol/L (96-108); Creatinine Clr Calc Pharmacy 23.7; Estimated Glomerular Filt Rate 31; Glucose Random 201 mg/dL (60-115); Potassium 5.6 mmol/L (3.3-5.1); Sodium 133 mmol/L (135-145)
[2022-06-08 23:37] VITALS: BP 163/43; PULSE 64; RESP 16; TEMP 36.8; O2SAT 98
[2022-06-08] MEDS: 0.9 % Sodium Chloride 1,000 ML 999 ML IV (23:52)
[2022-06-08] MEDS: Calcium Gluconate/NaCl,Iso-Osm 1 GM/50 ML PLAST..BAG IV (23:52)
--- NOTE | 2022-06-09 00:05 | MHC.EDTECH ---
this pct assumed care of patient at 2300 ,0000 vitals sign taken patient is resting ,call da silva within reach .
--- NOTE | 2022-06-09 00:25 | PC.NURSE ---
D/C: Report has been given to Hayley Bustamante.
--- NOTE | 2022-06-09 00:38 | MHC.EDTECH ---
patient rang da silva needed to void ,patient was assisted unto bedpan ,patient void large amount of urine ,awaiting ride back snf .
--- NOTE | 2022-06-09 00:47 | MHC.EDTECH ---
Call out to [facility] @[phone] spoke to Lindsey who gave me an ETA of within an hour
--- NOTE | 2022-06-09 01:25 | MHC.EDTECH ---
patient was assisted to use bedpan ,patient voided large amount of urine .
== END 2022-06-09 01:59 | disposition skilled nursing facility (03) ==
PROVIDERS: Emergency Provider Internal Medicine; PCP Internal Medicine
DX: E87.5 Hyperkalemia (principal); E11.22 Type 2 diabetes mellitus with diabetic chronic kidney disease; I12.9 Hypertensive chronic kidney disease with stage 1 through stage 4 chronic kidney disease, or unspecified chronic kidney disease; N18.9 Chronic kidney disease, unspecified; I48.0 Paroxysmal atrial fibrillation; Z79.82 Long term (current) use of aspirin; Z79.85 Long-term (current) use of injectable non-insulin antidiabetic drugs; Z79.899 Other long term (current) drug therapy
CPT/HCPCS: 36415; 80048; 85025; 93005; 96361; 96365; 99284; 99285; J0611